=== PATIENT | female | born 1935 | race Caucasian/White ===

== ENCOUNTER 2016-12-12 01:20 | Inpatient (IN) | payer OTHER, MEDICARE ==
[~2016-12-12] VITALS: Ht 175.3 cm; Wt 59.0 kg
[~2016-12-12 01:20] MED LIST: ASPIRIN EC81 M1 PO; CLONAZEPAM0.25 M1 PO; COZAAR100 M1 PO; ELIQUIS5 M1 PO; GABAPENTIN300 M2 PO; LEXAPRO10 M1 PO; LIPITOR20 M2 PO; MERREM1 GM IV; METOPROLOL TART25 M1 PO; REMERON15 M2 PO; VITAMIN D250000 UNIT PO
--- NOTE | 2016-12-12 12:47 | Admission Core Measures ---
Admission Meds I reviewed the following Meds: Current Medications Sig/Chris Start time Last Medication Dose Stop Time Status Admin Atorvastatin Calcium 20 MG DAILY 12/13 1000 UNVr (Lipitor) Clonazepam 0.25 MG BID 12/12 2199 UNVr (KlonoPIN) 12/19 215 Escitalopram Oxalate 10 MG DAILY 12/13 1000 UNVr (Lexapro) Gabapentin 300 MG DAILY 12/13 1000 UNVr (Neurontin) Heparin Sodium 25,000 UNIT ONCE ONE 12/12 1245 UNir (Porcine) 12/12 1246 (Heparin) Sodium Chloride 500 ML Heparin Sodium 25,000 UNIT ONCE ONE 12/12 1215 AC (Porcine) 12/14 1414 Sodium Chloride 500 ML (Normal Saline 0.9%) Losartan Potassium 100 MG DAILY 12/13 1000 UNVr (Cozaar) Meropenem 0.5 GM Q8 12/12 1400 UNVr (MEROPENEM) Meropenem 0.5 GM ONCE 12/12 0000 NR (MEROPENEM) 12/12 2359 Metoprolol Tartrate 25 MG BID 12/12 2199 UNVr (Lopressor) Mirtazapine 15 MG QPM 12/12 220 UNVr (Remeron) Omeprazole 20 MG DAILY AC 12/13 0700 UNVr (Prilosec) Acute Coronary Syndrome Inclusion Criteria ACS Diagnosis No Inpatient Core Measures LDL Reminder: If No, please order W/I first 24hr of stay Congestive Heart Failure Inclusion Criteria CHF Diagnosis No Cerebrovascular accident Inclusion Criteria CVA/TIA Diagnosis No Inpatient Core Measures Bedside Swallow Eval Reminder: If BSE failed, place ST order Antithrombotic Reminder: Order Antithrombotic Medication by end of day 2 Antithrombotic Reminder: Document Reason Antithrombotic Not ordered by end of day 2 AFIB/Flutter Reminder: If Present, add to problem list AFIB/Flutter Reminder: Order Anticoag Medication for pts with AFIB/Flutter Atherosclerosis Reminder: If Present, add to problem list LDL Reminder: If No, please order W/I first 24hr of stay PT Order Reminder: If No, please order Venous thromboembolism Inpatient Core Measures VTE Risk Factors: Age > 40, Surgery No [facility] V[facility] prophylaxis d/t Lower limb ischemia, Peripheral vascular Dx No VTE Pharm Prophylaxis d/t No contraindications Inclusion Criteria - Per Current guidelines, there needs to be overlap - treatment for the first 5 days of Warfarin therapy. - Parenteral Anticoagulation (IV or SC) needs to be - given along with Warfarin therapy. VTE Diagnosis No VTE Type NONE VTE Confirmed by (Test) NONE Problem List As ranked by this Provider includes Assessment & Plan 1. PVD (peripheral vascular disease) HOME MEDS Home Med List Apixaban (Eliquis) 5 MG TABLET 1 TAB PO BID A FIB (Reported) Atorvastatin Calcium (Lipitor) 20 MG TABLET 1 TAB PO DAILY CHOLESTEROL ( Reported) Clonazepam 0.25 MG TAB.RAPDIS 1 TAB PO BID ANXIETY (Reported) Ergocalciferol (Vitamin D2) (Vitamin D2) 50,000 UNIT CAPSULE 1 CAP PO QW VITAMIN D DEFICIENCY (Reported) Escitalopram Oxalate (Lexapro) 10 MG TABLET 1 TAB PO DAILY ANXIETY \ DEPRESSION (Reported) Gabapentin 300 MG CAPSULE 1 CAP PO DAILY NEUROPATHY (Reported) Losartan (Cozaar) 100 MG TABLET 1 TAB PO DAILY HTN (Reported) Metoprolol Tartrate 25 MG TABLET 1 TAB PO BID A FIB (Reported) Mirtazapine (Remeron) 15 MG TABLET 1 TAB PO QPM SLEEP (Reported) Discontinued Medications Aspirin (Ecotrin*) 81 MG TABLET.DR 1 TAB PO DAILY CVA (Reported) Discontinued reason: Changed Dose
--- NOTE | 2016-12-12 15:14 | PN- Vascular Surgery ---
Subjective Subjective: The patient was seen this afternoon postoperatively. She complaints of feeling cold but is otherwise comfortable and denies any pain at the current time. Objective Vital Signs and I&Os Vital signs: Blood pressure 150/90, pulse 90, temperature 97.9, O2 sat saturation 100% on 3 L via nasal cannula Physical Exam: Gen.: Alert and in no obvious distress Skin: Warm and dry Cardiac: S1 and S2 regular Pulmonary: Bilateral breath sounds are equal and decreased at bases Extremities: Bilateral lower extremities are warm. Gross motor and sensory are intact. Right lower extremity with surgical dressing is clean, dry, and intact. There is a dopplerable PT pulse and the foot is warm with a hyperemic appearance Assessment/Plan Assessment/Plan Assessment: 80-year-old female status post right leg angioplasty and stenting due to peripheral vascular disease and chronic nonhealing wounds Plan: Place in observation for neurovascular checks Heparin drip at 500 units an hour nonprotocol IV antibiotics PRN pain medications, antiemetics, antipyretics Advance diet as tolerated GI and DVT prophylaxis Resume home medications Probable discharge tomorrow if progressing as expected. Core Measures/Miscellaneous Venous Thromboembolism VTE Risk Factors: Age > 40, Surgery VTE Contraindications: No Contraindications No [facility] VTE Prophylaxis D/T: Peripheral Vascular Dx, Surgical Procedure LE VTE Diagnosis: No VTE Type: NONE VTE Confirmed by (Test): NONE Beta Jerry Is Beta Jerry a Home Med? Yes If Yes, Was This Ordered Today? Yes Antibiotics Is Patient on Antibiotics? Yes If Yes: infection
--- NOTE | 2016-12-12 16:38 | RADIOLOGY REPORT ---
EXAMINATION: ADMINISTRATIVE DICTATION FOR INTRAOPERATIVE FLUOROSCOPY CLINICAL INFORMATION: Right leg arteriogram and angioplasty in OR. COMPARISON: None FLUOROSCOPY TIME: 18 minutes. TECHNIQUE/FINDINGS: Intraoperative fluoroscopy was dedicated to the operating room for the performance of a right leg arteriogram and angioplasty. 9 fluoroscopic runs were performed and are archived in PACS for review. IMPRESSION: Intraoperative fluoroscopy and fluoroscopic runs obtained for an arteriogram and angioplasty.
[2016-12-12 17:31] VITALS: BP 132/80
--- NOTE | 2016-12-12 17:55 | Operative Report ---
Operative/Inv Procedure Report Surgery Date: 12/12/16 Name of Procedure: Ultrasound guidance for vascular access, right leg extremity venogram with supervision and interpretation, aortogram, right pelvic angiogram, right lower extremity angiogram, right external iliac 6 mm angioplasty with a Lutonix drug coated balloon, right SFA and popliteal angioplasty and stenting 3, intravascular ultrasound, additional vessel intravascular ultrasound, Exoseal closure device Pre-Operative Diagnosis: Right leg peripheral arterial disease with past atherosclerotic ulceration of the lower leg. Post-Operative Diagnosis: Right leg peripheral arterial disease with past atherosclerotic ulceration of the lower leg. Estimated Blood Loss: less than 50ml Surgeon/Energy Crop Farmer: TERENCE PINEDA MD Anesthesia: local monitored anesthesi Complications: None Condition: Stable to PACU Operative Indication: This is a 80-year-old female with extensive history of peripheral arterial disease, A. fib, poor nutrition and smoking. Recently she struck her right leg which has resulted in a extensive pretibial wound. She is recently been started on IV antibiotics. She states that her pain is been worsening and has consented to lower extremity diagnostic angiography. The patient has prior placed iliac stents which will necessitate alternate access via the popliteal artery. Risks and benefits of the procedure including thrombosis, limb loss and were explained to her. She consented to the procedure. Operative/Procedure Note Note: Patient brought to the operating room and placed prone on the table. The right popliteal artery was selected for access. This was done with a combination of ultrasound guidance and fluoroscopy. The venous system was also interrogated with contrast injection. The popliteal vein was accessed and a venogram demonstrated a widely patent superficial femoral vein and popliteal vein. The artery was then accessed. The catheter was advanced into the aorta with diagnostic pelvic and right lower extremity angiography performed from the aorta down to the foot. Aortography demonstrates a patent aortoiliac segment. There are bilateral iliac stents. These are widely patent. These areas are calcified. Pelvic angiography was performed due to the severe nature of the patient's disease. This demonstrates significant iliac disease. The right external iliac artery demonstrates a moderate stenosis. The right superficial femoral artery is occluded just past its origin. The profunda femoris is patent. There is reconstitution to the popliteal artery. The below-knee popliteal artery is diseased but patent. There is 2 vessel runoff to the right leg via a dominant posterior tibial artery. The peroneal artery appears occluded. Due to the severe nature of this patient's disease decision was made to perform intervention. 4500 units of heparin were administered. A 4-6 Maltese sheath was placed in succession. The external iliac artery was treated with 6 mm Lutonix drug-coated balloon angioplasty this area has restenosed in the past. The SFA was treated with 3 stents. A 6 x 100 mm Cordis, 6 x 100 mm Mana. Sci. and 5 mm Mana, Sci. Self-expanding stents were placed in succession from the common femoral artery down to the popliteal artery. The area was then postdilated with 4-6 mm angioplasty. Completion arteriography demonstrates mild restenosis. The area was re-interrogated with intravascular ultrasound. This was done from the iliac vessels all the way down to the popliteal artery. This demonstrates a patent SFA and profunda femoris. A small dissection was noted and this area was tacked with a 6 mm angioplasty. Completion arteriography demonstrates no flow limiting dissection. The catheter sheath and wire systems were then removed. An Exoseal closure device was used to seal the puncture site. The patient had significant improvement and her neurovascular exam in addition to a foot that appears well- perfused at this time. Due to the extensive nature of the case and the patient's disease she will be monitored overnight 23 hours and placed on a heparin drip. Findings: Due to the extensive nature of the case and the patient's disease she will be monitored overnight 23 hours and placed on a heparin drip. CC: YOLANDA GONZALEZ,BRANDIE
--- NOTE | 2016-12-12 20:13 | NUR ---
BEDSIDE REPORT GIVEN AT 1930. PT A&OX3, 3LNC, SANDRA PICC- IVF NS @75ML, HEPARIN GTT 10ML, SIGN PLACED ABOVE BED NO RIGHT ARM USE. DSG TO RLE (KNEE) SURGICAL SITE CDI, DSG TO RLE (WOUND/ULCER) CHANGED BY PRIOR RN, PER PT GOES TO WOUND CLINIC FOR TREATMENTS, ALPS LLE ONLY, BED ALARM ON, RED SOCKS ON, SIGN OUTSIDE OF DOOR, CALL LIGHT WITHIN REACH. PT MEDICATED WITH PRN PAIN MEDICATIONS.
[2016-12-12 20:21] VITALS: BP 140/90
--- NOTE | 2016-12-12 20:56 | NUR ---
RECEIVED PT FROM PACU AROUND 1645. LETHARGIC/O/VERBAL. SPO2 86% ON RA. STARTED ON 3L O2 NC. RT CALLED AND UPDATED WHO CAME IN TO CHECK THE PT. NO RESP DISTRESS NOTED. REST OF THE VS STABLE. FALL PREC PLACED. ALP TO L LEG. SURGICAL DRSG TO R KNEE/LEG CDI. RLE DRSG CHANGED AND DRESSED WITH XEROFORM/TELFA/ABD/KERLEX. PT GOES TO WOUND CENTER. RLE DIFFICULT TO MEASURE BECAUSE THE WOUND IS COVERING ALMOST ALL R LOWER LEG. WOUND CONSULT WILL BE PLACED WITH WOUND RN MIAKOL JONES. SANDRA PICC DL PATENT. HEP GTT IN PROGRESS AT 10ML/HR. LLE DISCOLORED W/HEALED SURGICAL SITE. BIG BRUISE TO LFA NOTED. HEALING SCAB TO FOREHEAD. +PULSES TO FEMORAL, DORSALIS PEDIS, AND POPLITEAL. UPPER AND LOWER EXT COLD TO TOUCH. CALLED SURG SHERIN PRATT TO REACTIVATE HEP GTT AND PAIN MEDS AT 1700. PT EVAL IN PLACE. REPORT GIVEN TO RN MARLEE LAMA.
[2016-12-12 21:57] VITALS: BP 138/80
[2016-12-13 06:28] VITALS: BP 142/80
--- NOTE | 2016-12-13 07:42 | PN- Vascular Surgery ---
Subjective Subjective: some pain right leg, helped with meds. no n/v/cp/sob. Objective Vital Signs and I&Os Vital Signs Date Time Temp Pulse Resp B/P B/P Pulse O2 O2 Flow FiO2 Mean Ox Delivery Rate 12/14 627 98.3 108 20 142/80 92 Nasal 3.0L Cannula 12/13 0000 96 Nasal 3.0L Cannula 12/12 2157 98.1 90 20 138/80 92 12/12 202 92 140/90 12/12 2002 95 Nasal 3.0L Cannula 12/12 1909 Nasal 3.0L Cannula 12/12 1829 95 Nasal 3.0L Cannula 12/12 1731 98.4 88 18 132/80 95 Nasal 3.0L Cannula Intake & Output 12/13 0812/13 0000 12/12 1600 12/12 0812/12 0000 12/11 1600 Intake Total 1480 460 Output Total 1150 Balance 330 460 Intake, IV 680 340 Intake, Oral 800 120 Output, Urine 1150 Patient 130 lb Weight Physical Exam: GEN: NAD CARD: S1S2 RRR PULM: CTAB ant ABD: soft nt EXT: RLE: foot warm, gross motor/sensate intact, no palp pulse, +PT signal, no DP signal, dsg cdi, ttp popliteal fossa. LLE: calf soft nt, foot warm Assessment/Plan Assessment/Plan POD1 sp RLE angio/stent, stable. PLAN: IV abx- length? home dose? restart elaquis, dc hep gtt labs pdg titrate o2 hh diet oob dc planning Core Measures/Miscellaneous Venous Thromboembolism VTE Risk Factors: Age > 40, Surgery VTE Contraindications: No Contraindications No [facility] VTE Prophylaxis D/T: Peripheral Vascular Dx, Surgical Procedure LE VTE Diagnosis: No VTE Type: NONE VTE Confirmed by (Test): NONE Beta Jerry Is Beta Jerry a Home Med? Yes If Yes, Was This Ordered Today? Yes Antibiotics Is Patient on Antibiotics? Yes If Yes: infection
[2016-12-13 08:00] LABS: ABSOLUTE BASOPHIL COUNT 0.1 /CUMM (0.0-0.2); ABSOLUTE EOSINOPHIL COUNT 0.2 /CUMM (0.0-0.7); ABSOLUTE GRANULOCYTE CT 6.8 /CUMM (1.4-6.5); ABSOLUTE LYMPH COUNT 0.7 /CUMM (1.2-3.4); ABSOLUTE MONOCYTE COUNT 0.7 /CUMM (0.10-0.60); BASOPHIL % 0.7 % (0.0-2.0); EOSINOPHIL % 1.9 % (0-5); GRANULOCYTE % 80.8 % (42.2-75.2); HEMATOCRIT 34.1 % (37-47); MEAN CORPUSCULAR HGB 31.4 PG (27.0-31.0); MEAN CORPUSCULAR HGB CONC 32.7 G/DL (33.0-37.0); MEAN CORPUSCULAR VOLUME 95.9 FL (81.0-99.0); MEAN PLATELET VOLUME 8.6 FL (7.4-10.4); PLATELET COUNT 485 /CUMM (130-400); RBC DISTRIBUTION WIDTH 14.3 % (11.5-14.5); RED BLOOD CELL CT 3.55 /CUMM (4.20-5.40); WHITE BLOOD CELL COUNT 8.4 /CUMM (4.8-10.8)
[2016-12-13 08:33] LABS: PTT 35 SEC (25-37)
--- NOTE | 2016-12-13 10:31 | NUR ---
WOUND CARE: STAFF REQUESTING THIS TAX E[employer]OMIST EVAL PT FOR WOUND CARE RECOMMENDATIONS PT IS S/P ANGIO WITH DR PINEDA - CALL PLACED TO DR PINEDA TO CLARIFY ORDERS - PER DR PINEDA, HE "WILL TAKE CARE OF IT" (DRESSING CHANGES) - CALL PLACED TO CHARGE NURSE TO UPDATE
[2016-12-13] MEDS ORDERED: PERCOCET 5-3251 EACH PO (12:19)
--- NOTE | 2016-12-13 12:23 | Patient Discharge Instructions ---
See Addendum Discharge Instructions General Discharge Information You were seen/treated for: 1. Postoperative hypoxemia, secondary to pulmonary edema, bilateral effusions and atelectasis. 2. Status post right LE venogram for PAD, right lower extremity non-healing ulcer. 3. History of osteomyelitis, on meropenem. You had these procedures: Right leg angiogram/stent Watch for these problems: Increasing pain despite the use of pain medication. Loss of color, warmth, or sensation to right leg and foot. INability to bear weight on right leg. Fever greater than 101.5 Call Surgeon to remove: Other (dressing change/wound eval) Do not soak the wound: Yes Special Instructions: Please make an appointment to see the doctors in the referral section. Soft tissue cultures grew Pseudomonas species, resistant to Meropenem. Dr. Clare padron, follow up with her as an outpatient. Meropenem discontinued, currently not on any antibiotics. Diet Continue normal diet: Yes Recommended Diet: Regular Additional DIET Information: Advance as tolerated Activity Full Activity/No Limits: No Activity Self Limited: Yes Additional ACTIVITY Info: Weight bear as tolerated on right leg Acute Coronary Syndrome Inclusion Criteria At DC or during hospital stay patient has or had the following: ACS DIAGNOSIS No Discharge Core Measures Meds if any: Prescribed or Continued at Discharge Meds if any: NOT Prescribed or Continued at Discharge Congestive Heart Failure Inclusion Criteria At DC or during hospital stay patient has or had the following: CHF DIAGNOSIS No Discharge Core Measures Meds if any: Prescribed or Continued at Discharge Meds if any: NOT Prescribed or Continued at Discharge Cerebrovascular accident Inclusion Criteria At DC or during hospital stay patient has or had the following: CVA/TIA Diagnosis No Discharge Core Measures Meds if any: Prescribed or Continued at Discharge Meds if any: NOT Prescribed or Continued at Discharge Venous thromboembolism Inclusion Criteria VTE Diagnosis No VTE Type NONE VTE Confirmed by (Test) NONE Discharge Core Measures - Per Current guidelines, there needs to be overlap - treatment for the first 5 days of Warfarin therapy. - If discharged on Warfarin prior to 5 days of - overlap therapy, the patient will need to be - assessed for post discharge needs including - *Post discharge parental anticoagulation - *Warfarin and/or parental anticoagulation education - *Follow up date to check INR post discharge At least 5 days overlap therapy as Inpatient No Meds if any: Prescribed or Continued at Discharge Note: Overlap Therapy is Warfarin and Anticoagulant Meds if any: NOT Prescribed or Continued at Discharge
--- NOTE | 2016-12-13 12:57 | NUR ---
1230- PT O2 SAT 93% ON 3L NC. UNABLE TO TITRATE O2 DOWN AT THIS TIME. O2 SAT ON RA 86%. O2 SAT ON 2L NC 88%. O2 SAT ON 3L NC 93% IS USE ENCOURAGED AND PT COMPLIANT WITH RETURN DEMONSTRATION. SURG SHERIN ABBOTT NOTIFIED OF ABOVE.
[2016-12-13 14:24] VITALS: BP 142/88
--- NOTE | 2016-12-13 14:51 | RADIOLOGY REPORT ---
EXAMINATION: XR PORTABLE CHEST CLINICAL INFORMATION: Unable to wean oxygen. COMPARISON: None TECHNIQUE: Portable frontal view of the chest was obtained. FINDINGS: Both lungs are hyperinflated and clear of acute pneumonic process. Minimal linear atelectasis/scarring is seen in both lung bases and in both upper lobes. Heart size is normal. Mild prominence of bilateral pulmonary vascularity is noted without yohana congestion. A right central venous catheter is in mid SVC. No gross bony abnormality seen. IMPRESSION: Hyperinflated lungs with atelectasis versus scarring both lung bases and upper lobes. No acute consolidation seen. Prominent pulmonary vascularity but no congestion suspected.
--- NOTE | 2016-12-13 15:36 | Cons- Medical ---
JOSE ALFREDO APPLE MD 12/13/16 1536: General Information and HPI Consulting Request Date of Consult: 12/13/16 Requested By: TERENCE ORTIZ MD Reason for Consult: ACUTE HYPOXIA Exam Limitations: no limitations History of Present Illness: Patient is a 80-year-old female with a past medical history of HTN, Hyperlipidemia, PAD, Afib on Eliquis, venous stasis ulcer, TIA, polio, and depression , history of CVA current every day smoker, nonhea, status post popliteal femoral bypass in January 2014, who was admitted for same-day surgery of the right angiogram on 12/12/2016. The patient was supposed to be discharged today but but desaturated to lowest of 83% on room air while sitting on postop day 1. The medical team was consulted to help in the evaluation and treatment of acute hypoxia. The patient did not complain of any chest pain, shortness of breath or wheezing. She does state that she gets short of breath when she tried to get up and use the restroom which is new for her. She does not carry a formal diagnosis of COPD and not on any home oxygen. To be noted that the patient is currently on chronic meropenem therapy for the last 1 week as recommended by [facility] wound care center.. Allergies/Medications Allergies: Coded Allergies: cefepime (? 12/07/16) doxycycline (? 12/07/16) sulfamethoxazole (From BACTRIM) (? 12/07/16) trimethoprim (From BACTRIM) (? 12/07/16) Home Med List: Apixaban (Eliquis) 5 MG TABLET 1 TAB PO BID A FIB (Reported) Atorvastatin Calcium (Lipitor) 20 MG TABLET 1 TAB PO DAILY CHOLESTEROL ( Reported) Clonazepam 0.25 MG TAB.RAPDIS 1 TAB PO BID ANXIETY (Reported) TAKES 0.5 AT BEDTIME Ergocalciferol (Vitamin D2) (Vitamin D2) 50,000 UNIT CAPSULE 1 CAP PO QW VITAMIN D DEFICIENCY (Reported) Escitalopram Oxalate (Lexapro) 10 MG TABLET 1 TAB PO DAILY ANXIETY \ DEPRESSION (Reported) Gabapentin 300 MG CAPSULE 1 CAP PO DAILY NEUROPATHY (Reported) Losartan (Cozaar) 100 MG TABLET 1 TAB PO DAILY HTN (Reported) Meropenem (Merrem) 1 GRAM VIAL LEG WOUND (Reported) RUNS CONTINUOUSLY AT HOME Metoprolol Tartrate 25 MG TABLET 1 TAB PO BID A FIB (Reported) Mirtazapine (Remeron) 15 MG TABLET 1 TAB PO QPM SLEEP (Reported) Oxycodone HCl/Acetaminophen (Percocet 5-325 MG Tablet) 5 MG-325 MG TABLET 1 TAB PO Q4-6H PRN PAIN Current Medications: Current Medications Sig/Chris Start time Last Medication Dose Route Stop Time Status Admin Acetaminophen 650 MG Q6PRN PRN 12/12 1715 AC PO Apixaban 5 MG BID 12/13 1000 AC 12/13 PO 1108 Aspirin 325 MG DAILY 12/12 1239 AC 12/13 PO 1102 Atorvastatin Calcium 20 MG 1700 12/13 1700 DC PO Atorvastatin Calcium 20 MG 1700 12/13 1700 AC PO Clonazepam 0.25 MG BID 12/12 220 DC PO 12/19 2159 Docusate Sodium 100 MG DAILY NEEDED PRN 12/12 1715 AC PO Escitalopram Oxalate 10 MG DAILY 12/13 1000 DC PO Escitalopram Oxalate 10 MG DAILY 12/13 1000 AC 12/13 PO 1058 Gabapentin 300 MG DAILY 12/13 1000 DC PO Gabapentin 300 MG DAILY 12/13 1000 AC 12/13 PO 1100 Heparin Sodium 25,000 UNIT ONCE ONE 12/12 1745 DC 12/12 (Porcine) IV 12/14 1944 1740 Sodium Chloride 500 ML Heparin Sodium 25,000 UNIT ONCE ONE 12/12 1215 DC (Porcine) IV 12/14 1414 Sodium Chloride 500 ML Losartan Potassium 100 MG DAILY 12/13 1000 DC PO Losartan Potassium 100 MG DAILY 12/13 1000 AC 12/13 PO 1100 Meropenem 1 GM Q8 12/13 1400 AC 12/13 IV 1303 Meropenem 1 GM Q8 12/12 1400 DC IV Meropenem 0.5 GM ONCE 12/12 0000 DC IV 12/12 2359 Metoprolol Tartrate 25 MG BID 12/12 2200 DC PO Mirtazapine 15 MG QPM 12/12 2200 DC PO Morphine Sulfate 2 MG Q2P PRN 12/12 1715 DC 12/12 IV 1715 Omeprazole 20 MG DAILY AC 12/14 0700 AC PO Omeprazole 20 MG DAILY AC 12/13 0700 DC PO Ondansetron HCl 4 MG Q8P PRN 12/12 1715 AC IV Oxycodone/ 1 TAB ONCE ONE 12/13 1115 DC 12/13 Acetaminophen PO 12/13 1116 1108 Oxycodone/ 1 TAB Q4P PRN 12/12 1715 AC 12/13 Acetaminophen PO 0824 Oxycodone/ 2 TAB Q4P PRN 12/12 1715 AC 12/13 Acetaminophen PO 0328 Patient Medication 1 ED .STK-MED ONE 12/13 1403 DC Teaching ED 12/13 1404 Sodium Chloride 1,000 ML .[id number] 12/12 1715 DC 12/13 IV 0526 Review of Systems Review of Systems Constitutional: Reports: see HPI. 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 Surgical History Surgical History: POPLITEAL FEMORAL BYPASS Psychosocial History Services at Home: Home Health Aide, Nursing Smoking Status: Current Some Day Smoker Exam & Diagnostic Data Last 24 Hrs of Vital Signs/I&O Vital Signs Date Time Temp Pulse Resp B/P B/P Pulse O2 O2 Flow FiO2 Mean Ox Delivery Rate 12/13 1424 97.9 87 18 142/88 94 12/13 1100 70 130/80 12/13 0800 93 Nasal 3.0L Cannula 12/13 0628 98.3 108 20 142/80 92 Nasal 3.0L Cannula 12/13 0000 96 Nasal 3.0L Cannula 12/12 2157 98.1 90 20 138/80 92 12/12 2021 92 140/90 12/12 2002 95 Nasal 3.0L Cannula 12/12 1909 Nasal 3.0L Cannula 12/12 1829 95 Nasal 3.0L Cannula 12/12 1731 98.4 88 18 132/80 95 Nasal 3.0L Cannula Intake & Output 12/13 1600 12/13 0800 12/13 0000 Intake Total 1200 1480 460 Output Total 700 1150 Balance 500 330 460 Intake, IV 600 680 340 Intake, Oral 600 800 120 Output, Urine 700 1150 Patient 130 lb Weight Physical Exam General Appearance: well developed/nourished, no apparent distress, alert Head: atraumatic, normal appearance Cardiovascular: regular rate/rhythm, norml femoral pulses equa Breasts Breast appear nl Peripheral Pulses: 4+ femoral (R), 4+ femoral (L) Extremities: normal inspection, normal capillary refill, normal range of motion Last 24 Hrs of Labs/Zachary: Laboratory Tests 12/13/16 0502: Anion Gap 3 L, Estimated GFR > 60, BUN/Creatinine Ratio 25.0, APTT 35, CBC w Diff NO MAN DIFF REQ, RBC 3.55 L, MCV 95.9, MCH 31.4 H, RDW 14.3, MPV 8.6, Gran % 80.8 H, Lymphocytes % 8.8 L, Monocytes % 7.8, Eosinophils % 1.9, Basophils % 0.7, Absolute Granulocytes 6.8 H, Absolute Lymphocytes 0.7 L, Absolute Monocytes 0.7 H, Absolute Eosinophils 0.2, Absolute Basophils 0.1, PUBS MCHC 32.7 L Assessment/Plan Assessment/Plan This is a 80-year-old female with a past past medical history of hypertension hyperlipidemia, atrial fibrillation on Eliquis, nonhealing ulcer on the right leg status post right angiogram on 12/12/2016 who developed acute hypoxia postoperatively. She was found to be desaturating to 82% on room air and was immediately put on 3 L of oxygen. Patient's vitals at the time of termination showed Blood pressure 142/88, respiration rate of 18, heart rate of 98 EKG shows normal sinus rhythm The medical team is being consulted for the following problem Assessment 1. Acute hypoxia postoperatively: The patient has history of atrial fibrillation and is anticoagulated well, she was also bridged during the surgery with IV heparin and was started on by mouth Eliquis again today but, given normal chest x-ray, I am worried about the acute hypoxia in the postoperative setting and the suspicion of pulmonary embolism remains high. To be noted that the patient was off Eliquis for 2 days prior to the right angiogram. . The other differential for the acute hypoxia could be atelectasis. 2. 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 Status post right angiogram on 12/12/2016 3. History of hypertension 4. History of hyperlipidemia 5. History of peripheral vascular disease Plan We recommend CTA of the chest with IV contrast to look for pulmonary embolism Considering that the patient had a moderate amount of contrast during her angiogram we would give 1 L of normal saline at 75 mL per hour post CAT scan Incentive spirometry Titrate oxygen Continue with HOME MEDICATIONS AND IV ANTIBIOTICS We will follow the patient with you DVT prophylaxis with Eliquis Addedndum: As recommended by Dr Ortiz he was not comfortable getting anoother IV contrast load .He recommended to check D dimers We still think that we can proceed wioth the CT chest without contrast to look for further evlauation and consolidation and hyperinflation of the lung. Problem List: 1. PVD (peripheral vascular disease) Consult Acknowledgment - Thank you for your consult request. DANN GONZALEZ,MATT 12/13/162: Assessment/Plan Consult Acknowledgment - Thank you for your consult request. Attending MD Review Statement Attending Statement Attending MD Statement: examined this patient, discuss w/resident/PA/ROAD CUTTER, agreed w/resident/PA/ROAD CUTTER, reviewed EMR data (avail), reviewed images Attending Assessment/Plan: 80-year-old female active tobacco user, history of hypertension hyperlipidemia atrial fibrillation on Eliquis and peripheral arterial disease. She is here on the vascular surgery service and has a chronic ulcer on her right pretibial area has been followed at the [facility] and is on IV meropenem for the past week. She had a right lower extremity angiogram done December 12 for possible intervention for atherosclerotic disease. She was transitioned from Eliquis to IV heparin for the procedure and today transitioned back to by mouth Eliquis. We were called for hypoxia and desaturation of unclear etiology. Her room air sat is 86% and she requires 3 L to be over 90%. She has nothing suggestive in her history, exam or chest x-ray of pneumonia or congestive heart failure. At this point my biggest clinical suspicion is for underlying COPD -undiagnosed given her long-term tobacco use. However she does not carry a diagnosis of COPD, has never needed oxygen before, and I think a PE definitely has to be taken into consideration as well. At this point will continue the by mouth Eliquis. We've spoken to the surgical PA and her creatinine is normal, she was maintained on fluids and didn't get a lot of contrast for her angiogram. We'll get a CTA which will help us to rule out a PE and define pulmonary parenchymal disease. We will maintain her on the oxygen and follow-up based on the CT results. Keep her on low-dose fluids and follow BUN and creatinine in a.m. post contrast.
--- NOTE | 2016-12-13 16:17 | NUR ---
1430- PT CONTINUES ON O2 3L AT 93% AT REST. PHYSICAL THERAPY HAD PT SIT AT BEDSIDE AND PT DESATURATED TO 83%. SURG SHERIN ABBOTT NOTIFIED. CXR ORDERED. MEDICAL CONSULT TO BE PLACED. DISCHARGE TO BE CANCELLED.
--- NOTE | 2016-12-13 17:25 | NUR ---
CTA OF CHEST ORDER PLACED AT THIS TIME BY JOSE ALFREDO. THEN CALLED BY BRAYDEN DUFF STATING THAT DR PINEDA DOES NOT WANT TO DO CTA OF CHEST INSTEAD DRAW D-DIMER. ORDER IN PLACE FOR D-DIMER. CALL FROM JOSE ALFREDO STATING THAT HE WILL ALSO ORDER A CT OF CHEST FOR TODAY. CALL FROM [facility] STATING THAT THEY JUST GOT A CALL FROM DR PINEDA STATING TO NOT SCAN PT AT ALL, JUST DRAW D-DIMER AND CONSIDER CT CHEST TOMORROW IF D- DIMER IS ELEVATED. CALL TO JOSE ALFREDO AT THIS TIME TO MAKE AWARE AND STATED HE WILL CANCEL ORDER FOR CT CHEST. D-DIMER WILL BE DRAWN AT THIS TIME.
--- NOTE | 2016-12-13 18:53 | PN- Vascular Surgery ---
Surgical Brief Attending Note Brief Attending Note: VASCULAR ATTENDING NOTE: Pt. now s/p RLE angio stent 12/12. Minimal R. leg pain. ? decrease in 02 sat. Now stable on O2 therapy. Denies SOB. PE: AF/VSS Chest CTAB Ext: Warm/well perfused--wound dressing changed A/P 1.) Cont. A/C--Hold CTA -as pt. 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 is stable on A/C and there's no role for IVCF 2.) If pulm. status does not stabilize will consult Dr. Babcock in AM. 3.) Cont. ABX and local wound care 4.) Cont. home meds
--- NOTE | 2016-12-13 19:24 | Event Note ---
Event Note Event Note: Spoke to Dr Ortiz and discussed the option of doing CT chest without contrast. He was reluctant with further radiation exposure to the patient and asked us to hold off on any further imaging.(with or withour contrast).
[2016-12-13 20:55] VITALS: BP 148/70
--- NOTE | 2016-12-13 21:06 | NUR ---
CALL PLACED TO SURGICAL PA AT THIS TIME REGARDING RESULT OF D-DIMER TEST, PLAN IS FOR NOW, PER REG SURGICAL PA, MONITOR VS QS AND INFORM OF ANY CHANGES. LUNGS CONT TO BE DIMINISHED WITH SLIGHT EXP WHZ, 92% ON 3L, DENIES SOB.
[2016-12-14 06:34] VITALS: BP 155/80
--- NOTE | 2016-12-14 08:50 | PN- General Surgery ---
Subjective Subjective: Pt. denies dyspnea, however looks mildly dyspneic when conversing with me. She states she wants to go home today. RN reports that yesterday sats were 83% while she was getting OOB Objective Vital Signs and I&Os Vital Signs Date Time Temp Pulse Resp B/P B/P Pulse O2 O2 Flow FiO2 Mean Ox Delivery Rate 12/14 0634 98.5 94 22 155/80 92 Nasal Cannula 12/14 0000 92 Nasal 3.0L Cannula 12/13 2055 98.1 108 20 148/70 92 Nasal 3.0L Cannula 12/13 1800 Nasal 3.0L Cannula 12/13 1424 97.9 87 18 142/88 94 12/13 1100 70 130/80 Intake & Output 12/14 1600 12/14 0800 12/14 0000 12/13 1600 12/13 0800 12/13 0000 Intake Total 240 1200 1480 460 Output Total 900 285 851 5035 Balance -660 -276 500 330 460 Intake, IV 600 680 340 Intake, Oral 240 600 800 120 Number 0 Bowel Movements Output, Stool 1 Output, Urine 900 811 289 8730 Patient 130 lb Weight Alert, appropriate, no distress when resting,mild dypnea with conversation. Lungs with bilat. basilar crackles. Sats this morning : 93 % resting on oxygen 2 LNC. 86% resting on room air. Abdomen benign R LE warm to touch.Audible signals with Doppler at DP/PT, faint at DP. Assessment/Plan Assessment/Plan s/p angioplasty/ stent for PVD POD#2 LLE perfused with audible signals with Doppler. Anticoagulated with Eliquis at present. Hypoxia with baseline long hx of smoking. 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 Workup was done yesterday. D Dimer was elevated, CTA to r/o PE was not done due to recent dye load for surgery.CXR yesterday was with hyperinflation, atelectasis, prominent vascularity, but no congestion. I suspect her baseline sats are low. She makes good amounts of urine and her fluid balance is negative . She doesn't appear in fluid overload.Crackles are likely due to atelectasis. Would hesitate with trial of Lasix due to potential dehydration with recent dye and potential effect on kidney. Will get BNP, repeat portable CXR this morning.Dr Piña to evaluate pt. for recommendation. Core Measures/Miscellaneous Venous Thromboembolism VTE Risk Factors: Age > 40, Surgery VTE Contraindications: No Contraindications No [facility] VTE Prophylaxis D/T: Peripheral Vascular Dx, Surgical Procedure LE VTE Diagnosis: No VTE Type: NONE VTE Confirmed by (Test): NONE Beta Jerry Is Beta Jerry a Home Med? Yes If Yes, Was This Ordered Today? Yes Antibiotics Is Patient on Antibiotics? Yes If Yes: infection
--- NOTE | 2016-12-14 09:46 | NUR ---
LATE ENTRY FROM 12/13/16 14:00- CALL RECEIVED FROM LPN PRIVATE DUTY. PER DR. PINEDA, HE OR THE SURGICAL PA WILL CHANGE PT'S DRESSING.
--- NOTE | 2016-12-14 09:53 | Cons- Pulmonary ---
General Information and HPI Consulting Request Date of Consult: 12/14/16 Requested By: Dr. Ortiz Reason for Consult: Hypoxia Source of Information: patient, old records Exam Limitations: no limitations History of Present Illness: The patient is a 80-year-old female with a past medical history significant for hypertension, hyperlipidemia, severe peripheral artery disease, s/p femoral bypass in January of 2014, atrial fibrillation on Eliquis, venous stasis ulcer, TIA , CVA, polio, and long smoking history, noting the patient is an every day smoker. The patient was admitted on 12/12/2016 following an elective right lower extremity venogram for right leg peripheral artery disease with past atherosclerotic ulceration of the lower leg. The procedure was somewhat prolonged, noting the patient was under sedation for several hours. The patient was originally planned to go home the same day of the procedure however she was noted to desaturate to 83% while on room air. The patient's saturations are typically in the low 90s at baseline. She did not have any chest pain, or wheezing at that time. The patient was continued on a heparin drip intraoperatively and was placed on Eliquis postoperatively, which she remains on. Chest x-ray done yesterday showed hyperinflated lungs with atelectasis versus scarring in both lung bases and the upper lobes. There is no acute consolidation. Prominent pulmonary vascularity was seen. Allergies/Medications Allergies: Coded Allergies: cefepime (? 12/07/16) doxycycline (? 12/07/16) sulfamethoxazole (From BACTRIM) (? 12/07/16) trimethoprim (From BACTRIM) (? 12/07/16) Home Med List: Apixaban (Eliquis) 5 MG TABLET 1 TAB PO BID A FIB (Reported) Atorvastatin Calcium (Lipitor) 20 MG TABLET 1 TAB PO DAILY CHOLESTEROL ( Reported) Clonazepam 0.25 MG TAB.RAPDIS 1 TAB PO BID ANXIETY (Reported) TAKES 0.5 AT BEDTIME Ergocalciferol (Vitamin D2) (Vitamin D2) 50,000 UNIT CAPSULE 1 CAP PO QW VITAMIN D DEFICIENCY (Reported) Escitalopram Oxalate (Lexapro) 10 MG TABLET 1 TAB PO DAILY ANXIETY \ DEPRESSION (Reported) Gabapentin 300 MG CAPSULE 1 CAP PO DAILY NEUROPATHY (Reported) Losartan (Cozaar) 100 MG TABLET 1 TAB PO DAILY HTN (Reported) Meropenem (Merrem) 1 GRAM VIAL LEG WOUND (Reported) RUNS CONTINUOUSLY AT HOME Metoprolol Tartrate 25 MG TABLET 1 TAB PO BID A FIB (Reported) Mirtazapine (Remeron) 15 MG TABLET 1 TAB PO QPM SLEEP (Reported) Oxycodone HCl/Acetaminophen (Percocet 5-325 MG Tablet) 5 MG-325 MG TABLET 1 TAB PO Q4-6H PRN PAIN Current Medications: Current Medications Sig/Chris Start time Last Medication Dose Route Stop Time Status Admin Acetaminophen 650 MG Q6PRN PRN 12/12 171 AC PO Apixaban 5 MG BID 12/13 1000 AC 12/13 PO 2102 Aspirin 325 MG DAILY 12/12 1239 AC 12/13 PO 1102 Atorvastatin Calcium 20 MG 1700 12/13 1700 DC PO Atorvastatin Calcium 20 MG 17012/13 1700 AC 12/13 PO 1909 Docusate Sodium 100 MG DAILY NEEDED PRN 12/12 171 AC PO Escitalopram Oxalate 10 MG DAILY 12/13 1000 AC 12/13 PO 1058 Gabapentin 300 MG DAILY 12/13 1000 AC 12/13 PO 1100 Heparin Sodium 25,000 UNIT ONCE ONE 12/12 1745 DC 12/12 (Porcine) IV 12/14 1944 1740 Sodium Chloride 500 ML Losartan Potassium 100 MG DAILY 12/13 1000 AC 12/13 PO 1100 Meropenem 1 GM Q8 12/13 1400 AC 12/14 IV 0550 Metoprolol Tartrate 25 MG BID 12/13 2200 AC 12/13 PO 2229 Omeprazole 20 MG DAILY AC 12/14 0700 AC 12/14 PO 0550 Ondansetron HCl 4 MG Q8P PRN 12/12 1715 AC IV Oxycodone/ 1 TAB ONCE ONE 12/13 1115 DC 12/13 Acetaminophen PO 12/13 1116 1108 Oxycodone/ 1 TAB Q4P PRN 12/12 1715 AC 12/14 Acetaminophen PO 0600 Oxycodone/ 2 TAB Q4P PRN 12/12 171 AC 12/13 Acetaminophen PO 0328 Patient Medication 1 ED .STK-MED ONE 12/13 1403 DC Teaching ED 12/13 1404 Sodium Chloride 1,000 ML .[id number] 12/12 171 DC 12/13 IV 0526 Review of Systems Review of Systems Constitutional: Reports: malaise, weakness. Denies: chills, diaphoresis, fever. EENTM: Denies: no symptoms. Cardiovascular: Denies: chest pain, edema, orthopena, palpitations, peripheral edema, syncope. Respiratory: Reports: short of breath. Denies: cough, hemoptysis, orthopnea, sputum production, stridor, wheezing. GI: Denies: abdominal pain, constipation, diarrhea. Genitourinary: Denies: no symptoms. Musculoskeletal: Reports: muscle pain. Denies: gout. Skin: Reports: change in skin color. 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 Surgical History Surgical History: POPLITEAL FEMORAL BYPASS Psychosocial History Services at Home: Home Health Aide, Nursing Smoking Status: Current Some Day Smoker Exam & Diagnostic Data Last 24 Hrs of Vital Signs/I&O Vital Signs Date Time Temp Pulse Resp B/P B/P Pulse O2 O2 Flow FiO2 Mean Ox Delivery Rate 12/14 0800 92 Nasal 2.5L Cannula 12/14 0634 98.5 94 22 155/80 92 Nasal Cannula 12/14 0000 92 Nasal 3.0L Cannula 12/13 2055 98.1 108 20 148/70 92 Nasal 3.0L Cannula 12/13 1800 Nasal 3.0L Cannula 12/13 1424 97.9 87 18 142/88 94 12/13 1100 70 130/80 Intake & Output 12/14 1600 12/14 0800 12/14 0000 Intake Total 240 Output Total 100 900 276 Balance -100 -660 -276 Intake, Oral 240 Number 0 Bowel Movements Output, Stool 1 Output, Urine 100 900 275 Physical Exam General Appearance: awake, comfortable, thin, chronically ill Head: atraumatic Eyes: Bilateral: PERRL. Neck: supple Respiratory: severely diminished breath sounds with basilar crackles Cardiovascular: regular rate/rhythm (heart sounds distant) Gastrointestinal: normal bowel sounds, soft, non-tender Extremities: no edema, right lower extremity bandages in place Skin: warm/dry Last 48 Hrs of Labs/Zachary: Laboratory Tests 12/13/16 1740: D-Dimer 431 H 12/13/16 0502: Anion Gap 3 L, Estimated GFR > 60, BUN/Creatinine Ratio 25.0, APTT 35, CBC w Diff NO MAN DIFF REQ, RBC 3.55 L, MCV 95.9, MCH 31.4 H, RDW 14.3, MPV 8.6, Gran % 80.8 H, Lymphocytes % 8.8 L, Monocytes % 7.8, Eosinophils % 1.9, Basophils % 0.7, Absolute Granulocytes 6.8 H, Absolute Lymphocytes 0.7 L, Absolute Monocytes 0.7 H, Absolute Eosinophils 0.2, Absolute Basophils 0.1, PUBS MCHC 32.7 L Assessment/Plan Impression/Plan: 1. Postoperative hypoxemia, most likely related to atelectasis. Pulmonary embolism remains low (but not excluded) on the differential diagnosis, noting the patient was on IV heparin and is currently on Eliquis. CT angiogram would not change the current management, and the patient did receive a significant amount of IV contrast during her procedure. D-Dimer would not be helpful in this case, as it is likely positive. 2. Status post right lower extremity venogram for peripheral artery disease, right lower extremity non-healing ulcer. 3. History of osteoarthritis, on meropenem. 4. Long-term smoking, hyperinflation on chest x-ray suggestive of advanced COPD. Recommendations: * Check a repeat PA and lateral chest x-ray (ordered). * Check a BNP. * Follow-up morning lab results. * Incentive spirometry to continue - the patient was not doing this appropriately. * Request a TRC evaluation for [id number] nebulizer treatments - albuterol and atrovent. * Patient request a bedside spirometry, to be done by respiratory. * Out of bed to chair. * PT consult for ambulation - patient typically walks with a Rollator. * Continue with oxygen weaning, keep saturations greater than 92% at rest, and 88% on exertion. * Continue with Eliquis for DVT prophylaxis. * Continue all supportive care. * Discussed with surgical team. Consult Acknowledgment - Thank you for your consult request.
--- NOTE | 2016-12-14 12:49 | RADIOLOGY REPORT ---
EXAMINATION: XR CHEST CLINICAL INFORMATION: 80-year-old female with hypoxia. COMPARISON: Chest radiograph 12/13/2016 TECHNIQUE: 2 views of the chest were obtained. FINDINGS: Cardiac silhouette is at the upper limits of normal in size, unchanged. The right lung appears clear. Left basilar airspace disease is noted which is grossly unchanged. There is a small left pleural effusion. No pneumothorax. Right-sided PICC is present with tip terminating at the superior cavoatrial junction. No acute osseous abnormality. IMPRESSION: No significant interval change in left basilar airspace disease which may represent atelectasis and/or pneumonia. Clinical correlation recommended. Similar small left pleural effusion.
[2016-12-14 13:45] VITALS: BP 138/80
--- NOTE | 2016-12-14 14:37 | NUR ---
1415- ORDER REC'D TO MAKE PT A FULL ADMIT. ADMISSION DOCUMENTATION COMPLETED.
[2016-12-14 23:31] VITALS: BP 140/80
[2016-12-15 06:30] VITALS: BP 136/70
--- NOTE | 2016-12-15 07:34 | PN- Vascular Surgery ---
See Addendum Subjective Subjective: Patient is without complaints at the present time. Pain is controlled well with po pain medication. Was noting some difficulty breathing yesterday but feels it has improved with use of incentive spirometry as well as respiratory therapy. Is eager to ambulate today. Presently denies chest pain and shortness of breath. Denies nausea and vomitting. Objective Vital Signs and I&Os Vital Signs Date Time Temp Pulse Resp B/P B/P Pulse O2 O2 Flow FiO2 Mean Ox Delivery Rate 12/15 0630 98.2 96 18 136/70 92 Nasal Cannula 12/14 2331 97.4 101 20 140/80 91 Nasal 1.0L Cannula 12/14 2302 101 140/80 12/14 1640 96 Nasal 3.0L Cannula 12/14 1432 92 Nasal 3.0L Cannula 12/14 1345 98.4 60 20 138/80 90 Nasal 3.0L Cannula 12/14 1210 94 Nasal 3.0L Cannula 12/14 1050 95 132/84 12/14 1050 95 132/84 12/14 0800 92 Nasal 2.5L Cannula Intake & Output 12/15 0800 12/15 0000 12/14 1600 12/14 0800 12/14 0000 12/13 1600 Intake Total 799 109 2248 Output Total 971 743 2465 900 276 700 Balance -350 -400 -430 -660 -276 500 Intake, IV 600 Intake, Oral 720 240 600 Number 0 2 0 Bowel Movements Output, Stool 1 Output, Urine 934 629 3926 900 275 700 Patient 130 lb Weight Physical Exam: General: ALert and oriented x3, no acute distress Cardiac: Irregularly irregular Pulm: CTA bilaterally, resting respiratory effort slightly tachypnic (22) and shallow, able to effectively utilize IS Abdomen; Non-tender, non-distended Extremties: MOves all extremities, distal sensation itact. Skin to operative extremity warm distally. Dressing dry and intact. Contralateral calf non- tender Assessment/Plan Assessment/Plan This is a 80 year old female, POD 3, s/p r leg angio/stent. Hospital course complicated by atelectasis and decreased o2 saturation -Continue atc respiratory therapy -IS encouraged -OOB encouraged -Continue current anticoagulation -Pt in likely afib now, has history, consider ekg, is on home anticoagulation therapy presently -Will d/w Dr. Ortiz -Plan for dc to home when able to wean O2 -Pt was scheduled to see Dr. Ortiz today in wound center, will likely need dsg change, will d/w Dr. Ortiz prior to initiating Core Measures/Miscellaneous Venous Thromboembolism VTE Risk Factors: Age > 40, Surgery VTE Contraindications: No Contraindications No [facility] VTE Prophylaxis D/T: Peripheral Vascular Dx, Surgical Procedure LE VTE Diagnosis: No VTE Type: NONE VTE Confirmed by (Test): NONE Beta Jerry Is Beta Jerry a Home Med? Yes If Yes, Was This Ordered Today? Yes Antibiotics Is Patient on Antibiotics? Yes If Yes: infection
[2016-12-15 08:09] LABS: ABSOLUTE BASOPHIL COUNT 0 /CUMM (0.0-0.2); ABSOLUTE EOSINOPHIL COUNT 0.1 /CUMM (0.0-0.7); ABSOLUTE LYMPH COUNT 0.7 /CUMM (1.2-3.4); ABSOLUTE MONOCYTE COUNT 0.9 /CUMM (0.10-0.60); BASOPHIL % 0.5 % (0.0-2.0); HEMATOCRIT 37.8 % (37-47); MEAN CORPUSCULAR HGB 31.6 PG (27.0-31.0); MEAN CORPUSCULAR HGB CONC 33.1 G/DL (33.0-37.0); MEAN CORPUSCULAR VOLUME 95.4 FL (81.0-99.0); MEAN PLATELET VOLUME 8.3 FL (7.4-10.4); RBC DISTRIBUTION WIDTH 14.7 % (11.5-14.5); RED BLOOD CELL CT 3.96 /CUMM (4.20-5.40); WHITE BLOOD CELL COUNT 10.7 /CUMM (4.8-10.8)
[2016-12-15 08:52] LABS: PLATELET COUNT 532 /CUMM (130-400)
--- NOTE | 2016-12-15 09:07 | PN- Pulmonary ---
Subjective HPI/Critical Care Issues: The patient continues to require supplemental oxygen, however her oxygen requirement overall has improved. She continues to have severe pain which limits her mobility. She did not sleep well last night due to uncontrolled pain. This morning, she was 85% on room air. Objective Current Medications: Current Medications Sig/Chris Start time Last Medication Dose Route Stop Time Status Admin Acetaminophen 650 MG .STK-MED ONE 12/15 2255 DC PO 12/14 225 Acetaminophen 650 MG Q6PRN PRN 12/12 1715 AC 12/14 PO 2256 Albuterol Sulfate 3 ML EVERY 4 HRS/AWAKE 12/14 1200 AC 12/15 INH 0826 Alteplase, 2 MG ONE ONE 12/14 1315 DC 12/14 Recombinant IV 12/14 1316 1448 Apixaban 5 MG BID 12/13 1000 AC 12/14 PO 2255 Aspirin 325 MG DAILY 12/12 1239 AC 12/14 PO 1050 Atorvastatin Calcium 20 MG 1700 12/13 1700 AC 12/14 PO 1731 Docusate Sodium 100 MG DAILY NEEDED PRN 12/12 1715 AC PO Escitalopram Oxalate 10 MG DAILY 12/13 1000 AC 12/14 PO 1050 Gabapentin 300 MG DAILY 12/13 1000 AC 12/14 PO 1051 Ipratropium Halls 2.5 ML EVERY 4 HRS/AWAKE 12/14 1200 AC 12/15 INH 0826 Losartan Potassium 100 MG DAILY 12/13 1000 AC 12/14 PO 1050 Meropenem 1 GM Q8 12/13 1400 AC 12/15 IV 0611 Metoprolol Tartrate 25 MG BID 12/13 2200 AC 12/14 PO 2302 Omeprazole 20 MG DAILY AC 12/14 0700 AC 12/15 PO 0611 Ondansetron HCl 4 MG Q8P PRN 12/12 1715 AC IV Oxycodone/ 1 TAB Q4P PRN 12/12 1715 AC 12/14 Acetaminophen PO 1957 Oxycodone/ 2 TAB Q4P PRN 12/12 171 AC 12/15 Acetaminophen PO 0621 Patient Medication 1 ED .STK-MED ONE 12/14 1402 DC Teaching ED 12/14 1403 Vital Signs & I&O Last 24 Hrs of Vitals and I&O: Vital Signs Date Time Temp Pulse Resp B/P B/P Pulse O2 O2 Flow FiO2 Mean Ox Delivery Rate 12/15 0830 93 Nasal 2.0L Cannula 12/15 0630 98.2 96 18 136/70 92 Nasal Cannula 12/14 2331 97.4 101 20 140/80 91 Nasal 1.0L Cannula 12/14 2302 101 140/80 12/14 1640 96 Nasal 3.0L Cannula 12/14 1432 92 Nasal 3.0L Cannula 12/14 1345 98.4 60 20 138/80 90 Nasal 3.0L Cannula 12/14 1210 94 Nasal 3.0L Cannula 12/14 1050 95 132/84 12/14 1050 95 132/84 Intake & Output 12/15 1600 12/15 0800 12/15 0000 Intake Total Output Total 350 400 Balance -350 -400 Number 0 Bowel Movements Output, Urine 350 400 Physical Exam General Appearance: awake, comfortable, thin, chronically ill Head: atraumatic Neck: supple Respiratory: severely diminished breath sounds with basilar crackles Cardiovascular: regular rate/rhythm (heart sounds distant) Gastrointestinal: normal bowel sounds, soft, non-tender Extremities: no edema, right lower extremity bandages in place Skin: warm/dry Results Last 24 Hrs of Lab Results: Laboratory Tests 12/15/16 0700: Anion Gap 6, Estimated GFR > 60, BUN/Creatinine Ratio 23.3, Zgd-H-Klrznmszgvy Pept 5640 H, CBC w Diff NO MAN DIFF REQ, RBC 3.96 L, MCV 95.4, MCH 31.6 H, RDW 14.7 H, MPV 8.3, Gran % 84.0 H, Lymphocytes % 6.5 L, Monocytes % 8.0, Eosinophils % 1.0, Basophils % 0.5, Absolute Granulocytes 9.0 H, Absolute Lymphocytes 0.7 L, Absolute Monocytes 0.9 H, Absolute Eosinophils 0.1, Absolute Basophils 0, PUBS MCHC 33.1 Impression/Plan Impression/Plan Impression/Plan: 1. Postoperative hypoxemia, most likely related to atelectasis. Pulmonary embolism remains low (but not excluded) on the differential diagnosis, noting the patient was on IV heparin and is currently on Eliquis. Oxygen saturation is slowly improving. 2. Status post right LE venogram for PAD, right lower extremity non-healing ulcer. 3. History of osteomyelitis, on meropenem. 4. Long-term smoking, hyperinflation on chest x-ray suggestive of advanced COPD. Recommendations: * Check a noncontrast CT scan of the chest. * Incentive spirometry to continue. * TRC for [id number]-[id number] nebulizer treatments - albuterol and atrovent. * Patient request a bedside spirometry, to be done by respiratory. * Out of bed to chair. * PT for ambulation - patient typically walks with a Rollator. * Continue with oxygen weaning, keep saturations greater than 92% at rest, and 88% on exertion. * Continue with Eliquis for DVT prophylaxis. * Continue all supportive care. * Short-term rehabilitation suggested however the patient has 24-hour care at home.
--- NOTE | 2016-12-15 13:05 | CT SCAN REPORT ---
EXAMINATION: CT CHEST WITHOUT CONTRAST CLINICAL INFORMATION: 80-year-old female who has recently undergone angioplasty has postoperative hypoxia. Extensive smoking history. COMPARISON: CXR from 12/13/2016 and 12/14/2016. TECHNIQUE: Multidetector volumetric CT imaging of the chest was done. Axial MIP volume rendering provided. Sagittal and coronal reformatted images were obtained. DLP: 239 mGy-cm FINDINGS: LUNGS AND PLEURA: Severe centrilobular emphysema, and bronchial sanchez appear mildly thickened in both lungs. There is interlobular septal thickening in both lungs, likely representing mild interstitial edema, and intralobular septal thickening is present within upper lobes, as well. Small pleural effusions (right larger than left) and compressive atelectasis in lower lobes. The volume loss of the left lower lobe and is manifest by posterior shift of the major fissure. There is no overt evidence of superimposed airspace consolidation. No pulmonary mass or suspicious nodule. No pneumothorax. MEDIASTINUM: Cardiomegaly with enlarged right and left atrial and left ventricular chambers. Small pericardial effusion. There is kaqdqjpy-eo-[id number] atherosclerotic calcification of coronary arteries. The tip of a right subclavian central catheter terminates in the distal superior vena cava. Atherosclerotic calcification of the aorta, and its branches, without aortic aneurysm. There is mild gaseous distention of the proximal esophagus without esophageal wall thickening. There are likely several small nodules of the thyroid gland, and small calcifications are present within the interpolar region of each thyroid lobe. LYMPHATICS: No pathologic sized axillary, hilar or mediastinal lymph nodes. UPPER ABDOMEN: There is a 6.3 x 7 cm simple cyst at the upper pole of the left kidney. OSSEOUS STRUCTURES: Chondrocalcinosis of the degenerated glenohumeral joints, sternoclavicular joints and spine. Within the thoracic spine, degenerative disc disease is most severe at at T2-T3 and T8-T9. There is severe degenerative disc disease of C6-C7 of the examined lower cervical spine. Facet osteoarthritis of T1-T2 is associated with 0.5 cm of anterolisthesis of T1 on T2. IMPRESSION: 1. Coronary artery atherosclerosis, cardiomegaly, mild interstitial pulmonary edema, pleural effusions and bibasilar atelectasis. No overt pneumonia. 2. Severe pulmonary emphysema.
[2016-12-15 14:10] VITALS: BP 130/64
--- NOTE | 2016-12-15 14:53 | NUR ---
SPOKE WITH SHERIN Merino REGARDING PT'S O2 STATUS. PT 83-84% ON 1LNC AT REST. PT GIVEN RESPIRATORY TREATMENT AND IST, MOVED TO CHAIR. NO CHANGE. WHEN PLACED ON 1.5LNC AT 1230, PT INCREASED TO 92%. PER DR. COONEY, THIS IS THE GOAL O2 SAT. PT WENT FOR CT SCAN, AWAITING READ.
[2016-12-15 22:25] VITALS: BP 136/90
[2016-12-16 07:39] VITALS: BP 150/90
--- NOTE | 2016-12-16 10:17 | PN- Vascular Surgery ---
Subjective Subjective: NO MAJOR EVENTS OVERNIGHT GOOD PAIN CONTROL WITH RIGHT LEG DRSG CHANGED YESTERDAY NO COMPLAINTS AT THIS TIME D/C HELD DUE TO NEW O2 NEED Objective Vital Signs and I&Os Vital Signs Date Time Temp Pulse Resp B/P B/P Pulse O2 O2 Flow FiO2 Mean Ox Delivery Rate 12/16 0840 92 Nasal 1.5L Cannula 12/16 0800 93 Nasal 1.5L Cannula 12/16 0739 98.4 106 20 150/90 90 Nasal 1.5L Cannula 12/16 0000 Nasal 1.5L Cannula 12/15 2225 98.0 99 20 136/90 98 Nasal 1.5L Cannula 12/15 1752 95 Nasal 2.0L Cannula 12/15 1600 Nasal 2.0L Cannula 12/15 1410 97.8 62 20 130/64 90 Room Air Intake & Output 12/16 0800 12/16 0000 12/15 1600 12/15 0800 12/15 0000 Intake Total 1530 510 240 150 Output Total 850 550 600 Balance 680 510 -310 -450 Intake, IV 30 30 40 50 Intake, Oral 1500 480 200 100 Number 1 0 Bowel Movements Output, Urine 850 550 600 Physical Exam: CV: RRR LUNGS:COARSE BS THROUGHOUT ABD: SOFT, FLAT, +BS EXT: DRY CLEAN DRSG ON RIGHT LEG DISTAL CMS GROSSLY INTACT Assessment/Plan Assessment/Plan STABLE FROM A VASCULAR STANDPOINT PLAN TRC PER SHAYY STABLE FOR HOME D/C FROM VASCULAR STANDPOINT F/U WITH DR PINEDA 3 DAYS POST D/C Core Measures/Miscellaneous Venous Thromboembolism VTE Risk Factors: Age > 40, Surgery VTE Contraindications: No Contraindications No [facility] VTE Prophylaxis D/T: Peripheral Vascular Dx, Surgical Procedure LE VTE Diagnosis: No VTE Type: NONE VTE Confirmed by (Test): NONE Beta Jerry Is Beta Jerry a Home Med? Yes If Yes, Was This Ordered Today? Yes Antibiotics Is Patient on Antibiotics? Yes If Yes: infection
[2016-12-16 12:11] LABS: ABSOLUTE BASOPHIL COUNT 0 /CUMM (0.0-0.2); ABSOLUTE EOSINOPHIL COUNT 0.1 /CUMM (0.0-0.7); ABSOLUTE LYMPH COUNT 0.6 /CUMM (1.2-3.4); ABSOLUTE MONOCYTE COUNT 0.9 /CUMM (0.10-0.60); BASOPHIL % 0.4 % (0.0-2.0); EOSINOPHIL % 0.8 % (0-5); HEMATOCRIT 37.6 % (37-47); MEAN CORPUSCULAR HGB 31.3 PG (27.0-31.0); MEAN CORPUSCULAR HGB CONC 32.9 G/DL (33.0-37.0); PLATELET COUNT 533 /CUMM (130-400); RBC DISTRIBUTION WIDTH 14.7 % (11.5-14.5); RED BLOOD CELL CT 3.96 /CUMM (4.20-5.40); WHITE BLOOD CELL COUNT 10.5 /CUMM (4.8-10.8)
--- NOTE | 2016-12-16 12:30 | NUR ---
AT 1040, PT'S 02 SAT 77% ON 1.5LNC. PT STATING DIFFICULTY BREATHING. DENIES CHEST PAIN. PT STATES UNABLE TO "DO WELL WITH IST YESTERDAY". STATES ONLY DOING "HALF OF WHAT I COULD DO YESTERDAY". RESPIRATORY CALLED TO BEDSIDE. DIFFICULT TO FIND ACCURATE O2 READING. FOUND ON EAR AND COMPARED TO TOE. PLACED ON 2LNC, ONLY 86%. PLACED ON 2.5LNC, ONLY 88%. PLACED ON 3LNC, 89-90%. SURGICAL PA CALLED, INSTRUCTED TO CALL DR. COONEY. DR. COONEY RECOMMENEDED CTA AND ARTERIAL BLOOD GASES. SURGICAL PA NOTIFIED AND ORDERS PLACED. ALSO REQUESTED CBC AND BEP. BLOOD GASES AND BLOOD DRAWN PERIPHERALLY. PT OFF FLOOR IN CTA NOW. PER SURGICAL PA, OKAY FOR NURSING TO CHANGE DRESSING TO RLE. WILL CHANGE WHEN PT RETURNS. SURGICAL PA TO ADD TROPONIN TO BLOOD WORK. PT DROWSY/AROUSABLE. FORGETFUL.
[2016-12-16 12:35] LABS: GRANULOCYTE % 85.2 % (42.2-75.2)
--- NOTE | 2016-12-16 13:49 | CT SCAN REPORT ---
EXAMINATION: CT ANGIOGRAM OF THE CHEST WITH CONTRAST (CT PULMONARY ANGIOGRAM FOR PE) CLINICAL INFORMATION: Increased oxygen requirement. Hypoxia. COMPARISON: Chest CT from 12/15/2016. TECHNIQUE: Prior to contrast administration, noncontrast localization images were obtained. Subsequently, multidetector volumetric imaging was performed from the thoracic inlet to below the diaphragms following the administration of 100 mL of Optiray 350 intravenous contrast. No contrast reaction reported. Sagittal, coronal, and MIP oblique sagittal reformatted images were obtained on the CT workstation, uploaded to PACS, and reviewed. Total exam dose-length product 237 mGy-cm FINDINGS: QUALITY OF STUDY/CONTRAST BOLUS: Satisfactory. PULMONARY ARTERIES: The pulmonary artery trunk and central arteries are mildly enlarged, as may be seen in pulmonary arterial hypertension. There are no embolic filling defects identified within the main, lobar or segmental vessels. THORACIC AORTA: There is atherosclerotic calcification of the thoracic aorta without aneurysm or dissection. LUNGS AND PLEURA: Again noted is extensive centrilobular emphysema and bronchial wall thickening of both lungs. There is persistent patchy ground glass attenuation and interlobular septal thickening within upper lobes. A xqmsn-wa-bcykxsbv right pleural effusion remains similar in size compared to 12/15/2016. Also, the small left pleural effusion is unchanged. Compressive atelectasis is present within each lower lobe. There is hazy opacity, suggestive of mild atelectasis, in the dependent aspect of each upper lobe. No pneumothorax or other significant interval change. MEDIASTINUM: Again noted is multichamber cardiac enlargement and atherosclerotic calcification of the coronary arteries. There is reflux of contrast into the inferior vena cava, indicative of elevated right-sided cardiac pressures. Trace amount of fluid is present within the pericardial sac. The tip of a right subclavian central venous catheter terminates in the distal superior vena cava. Again noted is mild gaseous distention of the proximal esophagus without evidence of esophageal mass. Thyroid gland is heterogeneous and multinodular in appearance. LYMPHATICS: No pathologic sized axillary, hilar or mediastinal lymph nodes. UPPER ABDOMEN: Again noted is a large simple cyst at the visualized upper pole of the left kidney. OSSEOUS STRUCTURES: No new skeletal findings in the chest compared to 12/15/2016. IMPRESSION: 1. No evidence of pulmonary embolism. 2. Severe pulmonary emphysema. 3. Pulmonary arteries are mildly enlarged -- as may be seen in pulmonary arterial hypertension. 4. Coronary artery atherosclerotic disease, cardiomegaly, interstitial pulmonary edema and pleural effusions (right pleural effusion remaining larger than left). Compressive atelectasis is present within the lower lobes.
--- NOTE | 2016-12-16 13:55 | RADIOLOGY REPORT ---
EXAMINATION:\H\ \N\XR CHEST CLINICAL INFORMATION: Increased oxygen requirement. Elevated bnp. COMPARISON: CXR from 12/14/2016 TECHNIQUE: AP view of the chest was obtained. FINDINGS: The tip of a central catheter is located in the distal superior vena cava. Again noted is a mildly enlarged cardiac silhouette and mild enlargement of central pulmonary vessels. There is increased prominence of peribronchial interstitium in the perihilar regions and upper lung zones. There is persistent opacity in the retrocardiac region of left lower lobe, unchanged from 12/14/2016. Small pleural effusions are evident. No acute skeletal abnormality. IMPRESSION: 1. Cardiomegaly. 2. Peribronchial interstitial thickening in the perihilar regions and upper lung zones is slightly worse compared to 12/14/2016. Mild cardiogenic pulmonary edema is suspected. 3. The opacity in the retrocardiac region of left lower lobe is unchanged, and this appears to represent atelectasis on the recent chest CT exams.
[2016-12-16 14:19] VITALS: BP 110/80
[2016-12-16 16:00] VITALS: BP 148/70
--- NOTE | 2016-12-16 16:11 | PN- Resident CRCU ---
Subjective HPI/CRCU Issues: Postoperative hypoxemia 24 Hour Events: Medical consult/pulmonary consult were obtained on the [facility] floor, but patient was transferred to ICU today for worsening hypoxemia. Objective Vital Signs & I&O Last 8 Hrs of Vitals and I&O: Intake & Output 12/16 1600 Intake Total 280 Output Total 600 Balance -320 Intake, IV 40 Intake, Oral 240 Output, Urine 600 Exam General Appearance: alert, awake, mild distress, thin Head: atraumatic, normal appearance Ears, Nose, Throat: moist mucus membranes Neck: normal inspection, supple Respiratory: decreased breath sounds Cardiovascular: regular rate/rhythm Gastrointestinal: normal bowel sounds, soft, non-tender Extremities: no edema, s/p wound dressing on RLE Cranial Nerves: normal hearing, normal speech, PERRL Skin: chronic ulcer, RLE Walls Date In: 12/16/16 IV (Peripheral) Still Needed? Yes IV Drips IV Drips: IV heparin Nutrition Nutrition: P.O. diet Current Medications: Current Medications Sig/Chris Start time Last Medication Dose Route Stop Time Status Admin Acetaminophen 650 MG Q6PRN PRN 12/12 1715 AC 12/16 PO 1354 Albuterol Sulfate 3 ML EVERY 4 HRS/AWAKE 12/14 1200 AC 12/16 INH 1631 Apixaban 5 MG BID 12/13 1000 DC 12/16 PO 1044 Aspirin 325 MG DAILY 12/12 1239 DC 12/16 PO 1044 Atorvastatin Calcium 20 MG 1700 12/13 1700 AC 12/16 PO 1854 Docusate Sodium 100 MG DAILY NEEDED PRN 12/12 1715 AC PO Escitalopram Oxalate 10 MG DAILY 12/13 1000 AC 12/16 PO 1044 Furosemide 40 MG ONCE ONE 12/16 1400 DC 12/16 IV 12/16 1401 1355 Gabapentin 300 MG DAILY 12/13 1000 AC 12/16 PO 1041 Heparin Sodium 25,000 UNIT Q24H 12/16 1445 AC 12/16 (Porcine) IV 1639 Sodium Chloride 500 ML Ipratropium [place] 2.5 ML EVERY 4 HRS/AWAKE 12/14 1200 AC 12/16 INH 1631 Losartan Potassium 100 MG DAILY 12/13 1000 AC 12/16 PO 1044 Meropenem 1 GM Q8 12/13 1400 AC 12/16 IV 1355 Metoprolol Tartrate 25 MG BID 12/13 2200 AC 12/16 PO 1042 Mirtazapine 15 MG QPM 12/15 2200 AC 12/15 PO 2114 Morphine Sulfate 2 MG DAILY NEEDED PRN 12/15 0945 AC IV Omeprazole 20 MG DAILY AC 12/14 0700 AC 12/16 PO 0624 Ondansetron HCl 4 MG Q8P PRN 12/12 1715 AC IV Oxycodone/ 1 TAB Q4P PRN 12/12 1715 AC 12/16 Acetaminophen PO 1754 Oxycodone/ 2 TAB Q4P PRN 12/12 1715 AC 12/[address] Scan Findings: CTA 12/16: 1. No evidence of pulmonary embolism. 2. Severe pulmonary emphysema. 3. Pulmonary arteries are mildly enlarged -- as may be seen in pulmonary arterial hypertension. 4. Coronary artery atherosclerotic disease, cardiomegaly, interstitial pulmonary edema and pleural effusions (right pleural effusion remaining larger than left). Compressive atelectasis is present within the lower lobes. Impression/Plan Impression/Problem List Impression: 80-year-old lady who is an every day smoker with pmh of HTN, HLD, A.fib on Eliquis, severe PAD s/p femoral bypass in January of 2014, venous stasis ulcer, TIA , CVA, polio, was admitted for postoperative hypoxemia following an elective Rt. lower extremity venogram for Rt. leg PAD on 12/12/16 likely from pleural effusions and bibasilar atelectasis. Problem List: 1. Postoperative hypoxemia 2. Pleural effusion 3. COPD (chronic obstructive pulmonary disease) with emphysema 4. PVD (peripheral vascular disease) Pain Ratin Pain Location: Chronic nonhealing ulcer of the right leg PAD Pain Goal: Pain 4 or less Pain Plan: po tyrenol po percocet/IV morphine neurontin Tomorrow's Labs & Rationales: CBC: on IV heparin ICU bundle: diuretics Plan Respiratory: - Post operative hypoxemia likely secondary to pleural effusion (Rt > Lt) and bibasilar atelectasis: * Continue oxygen support to keep O2> 92%. PE was ruled out by CTA. * US-guided thoracentesis is scheduled on Sunday (12/18). * Continue IV heparin anticipating thoracentesis and hold eliquis. * Will give gentle diuresis with IV lasix 40mg daily for now, follow up cardiology consult/echocardiogram, monitor BEP. * Continue incentive spirometry. - Sevevere COPD/emphysema: current every-day smoker * Continue TR for [id number] nebulizer treatments (albuterol/atrovent) * Continue oxygen support Infectious Diseases: - Chronic ulcer on right pretibial area: continued on IV meropenem # 5 in the hospital, pt has been on IV meropenem for the past week. Cardiovascular: - A.fib: Continue IV heparin anticipating thoracentesis. Rate control with lopressor 25mg bid. - HTN: Well controlled, continue lopressor 25mg bid, cozaar 100mg daily - HLD: c/w lipitor 20mg daily Hematology: - on anticoagulation: with IV heparin for A.fib, check PTT per protocol Metabolic: Na: 135, K 4.9 Alimentary: Heart healthy diet Neurological: - history of CVA: aspirin was held with IV heparin. Continue lipitor. - depression: c/w remeron, lexapro Skin: - Chronic nonhealing ulcer of the right leg s/p right leg angiogram on 2016: Continue wound care and further management per vascular surgery Skin Care Protocol Ordered? Yes DVT/Prophylaxis: pharmacological Code Status: Full Code
--- NOTE | 2016-12-16 16:28 | PN- CRCU ---
Subjective HPI/Critical Care Issues: Patient transferred to the critical care unit for worsening hypoxemia. The patient is currently mildly short of breath with an O2 requirement of 3 L nasal cannula. She remains hemodynamically stable and afebrile. She reports mild increased shortness of breath offers no new complaints today. Objective Current Medications: Current Medications Sig/Chris Start time Last Medication Dose Route Stop Time Status Admin Acetaminophen 650 MG Q6PRN PRN 12/12 1715 AC 12/16 PO 1354 Albuterol Sulfate 3 ML EVERY 4 HRS/AWAKE 12/14 1200 AC 12/16 INH 1213 Apixaban 5 MG BID 12/13 1000 DC 12/16 PO 1044 Aspirin 325 MG DAILY 12/12 1239 DC 12/16 PO 1044 Atorvastatin Calcium 20 MG 1700 12/13 1700 AC 12/15 PO 1640 Docusate Sodium 100 MG DAILY NEEDED PRN 12/12 1715 AC PO Escitalopram Oxalate 10 MG DAILY 12/13 1000 AC 12/16 PO 1044 Furosemide 40 MG ONCE ONE 12/16 1400 DC 12/16 IV 12/16 1401 1355 Gabapentin 300 MG DAILY 12/13 1000 AC 12/16 PO 1041 Heparin Sodium 25,000 UNIT Q24H 12/16 1445 AC (Porcine) IV Sodium Chloride 500 ML Ipratropium [place] 2.5 ML EVERY 4 HRS/AWAKE 12/14 1200 AC 12/16 INH 1213 Losartan Potassium 100 MG DAILY 12/13 1000 AC 12/16 PO 1044 Meropenem 1 GM Q8 12/13 1400 AC 12/16 IV 1355 Metoprolol Tartrate 25 MG BID 12/13 2200 AC 12/16 PO 1042 Mirtazapine 15 MG QPM 12/15 2200 AC 12/15 PO 2114 Morphine Sulfate 2 MG DAILY NEEDED PRN 12/15 0945 AC IV Omeprazole 20 MG DAILY AC 12/14 0700 AC 12/16 PO 0624 Ondansetron HCl 4 MG Q8P PRN 12/12 1715 AC IV Oxycodone/ 1 TAB Q4P PRN 12/12 1715 AC 12/15 Acetaminophen PO 2101 Oxycodone/ 2 TAB Q4P PRN 12/12 1715 AC 12/15 Acetaminophen PO 2200 Vital Signs & I&O Last 24 Hrs of Vitals and I&O: Vital Signs Date Time Temp Pulse Resp B/P B/P Pulse O2 O2 Flow FiO2 Mean Ox Delivery Rate 12/16 1419 98.0 89 20 110/80 94 Nasal 1.5L Cannula 12/16 1044 98.2 106 160/100 12/16 1042 98.2 106 160/100 12/16 0840 92 Nasal 3.0L Cannula 12/16 0800 93 Nasal 1.5L Cannula 12/16 0739 98.4 106 20 150/90 90 Nasal 1.5L Cannula 12/16 0000 Nasal 1.5L Cannula 12/15 2225 98.0 99 20 136/90 98 Nasal 1.5L Cannula 12/15 1752 95 Nasal 2.0L Cannula Intake & Output 12/16 1600 12/16 0800 12/16 0000 Intake Total 520 1530 Output Total 400 850 Balance 120 680 Intake, IV 40 30 Intake, Oral 480 1500 Number 0 Bowel Movements Output, Urine 400 850 Physical Exam General Appearance: awake, comfortable, thin, chronically ill Head: atraumatic Neck: supple Respiratory: severely diminished breath sounds with basilar crackles Cardiovascular: regular rate/rhythm (heart sounds distant) Gastrointestinal: normal bowel sounds, soft, non-tender Extremities: no edema, right lower extremity bandages in place Skin: warm/dry Results Last 24 Hrs of Lab Results: Laboratory Tests 12/16/16 1140: Anion Gap 8, Estimated GFR > 60, BUN/Creatinine Ratio 26.7 H, Calcium 8.9, Phosphorus 3.1, Magnesium 1.9, Troponin I < 0.01, CBC w Diff NO MAN DIFF REQ, RBC 3.96 L, MCV 95.0, MCH 31.3 H, RDW 14.7 H, MPV 8.0, Gran % 85.2 H, Lymphocytes % 5.4 L, Monocytes % 8.2, Eosinophils % 0.8, Basophils % 0.4, Absolute Granulocytes 9.0 H, Absolute Lymphocytes 0.6 L, Absolute Monocytes 0.9 H, Absolute Eosinophils 0.1, Absolute Basophils 0, PUBS MCHC 32.9 L 12/16/16 1110: pH 7.49 H, pCO2 36, pO2 66 L, HCO3 27, ABG O2 Sat (Measured) 92.0 L, P-50 ( Temp Corrected) N, Carboxyhemoglobin 1.6, O2 Concentration % 3L, Temperature 98.2, O2 Delivery Method N/C, Phlebotomy Draw Site LEFT BRACHIAL Diagnostic Data CXR Findings: 1. Cardiomegaly. 2. Peribronchial interstitial thickening in the perihilar regions and upper lung zones is slightly worse compared to 12/14/2016. Mild cardiogenic pulmonary edema is suspected. 3. The opacity in the retrocardiac region of left lower lobe is unchanged, and this appears to represent atelectasis on the recent chest CT exams. Impression/Plan Impression/Plan Impression/Plan: 1. Postoperative hypoxemia, most likely related to pulmonary edema and atelectasis. CT angiogram is negative for pulmonary embolism. 2. Status post right LE venogram for PAD, right lower extremity non-healing ulcer. 3. History of osteomyelitis, on meropenem. 4. Long-term smoking, hyperinflation on chest x-ray suggestive of advanced COPD. Recommendations: * Cardiology consult. Diuresis as recommended. Check an ECHO. * Incentive spirometry to continue. * TRC for [id number] nebulizer treatments - albuterol and atrovent. * Bedside spirometry, to be done by respiratory. * Out of bed to chair. * Continue with oxygen weaning, keep saturations greater than 92% at rest, and 88% on exertion. * Continue with IV Heparin for DVT prophylaxis. * Continue all supportive care. * Short-term rehabilitation suggested however the patient has 24-hour care at home.
--- NOTE | 2016-12-16 16:48 | NUR ---
PT TRANSFERRED FROM FLOOR. BEDSIDE REPORT RECEIVED FROM 2N RN. PT WAS TRANSFERRED ON [facility] WITH LINKER UP MONITORING. PT IS ALERT, ORIENTED. MONITOR AFIB WITH HR 90-100. PT DENIES PAIN, NO SHORTNESS OF BREATH. LUNGS CLEAR, DISTANT AT BASES. WHEELER IS PATENT, 1200 MLS OUT AT 1600. STARTED ON HEPARIN DRIP DVT PROTOCOL VIA HER PICC LINE. ORIENTED TO ICU ENVIRONMENT. PT HAS HER RIGHT LOWER LEG WRAPPED IN KERLEX, LEFT LEG IS DISCOLORED, UNABLE TO PALPATE PEDAL PULSES, POPLITEAL ARE PRESENT. HER PERINEAL AREA IS RED AND IRRITATED AND SHE HAS A ROUND WET RED INDURATED AREA ON HER BUTTOCKS. WOUND CONSULT PLACE.
[2016-12-16 23:21] LABS: PTT 40 SEC (25-37)
[2016-12-17] VITALS: BP 158/95
--- NOTE | 2016-12-17 01:31 | NUR ---
PT REQUESTED TYLENOL EARLIER FOR R LEG PAIN WITH MOD RELIEF OF PAIN, REQUESTING MORE MEDICATION FOR R LEG PAIN. PERCOCET 1 TAB PO GIVEN WITH RELIEF. R LEG DRSG D/I UNABLE TO PALPATE PULSES EXTREMITIES WARM TO TOUCH WITH ADEQUATE MOVEMENT
--- NOTE | 2016-12-17 05:37 | PN- Vascular Surgery ---
Subjective Subjective: TRANSFERRED TO ICU LAST EVENING FOR ACUTE HYPOXEMIA CTA CHEST NEGATIVE FOR PE BUT SHWED LARGE RIGHT SIDED PLEURAL EFFUSION\ ICU TEAM ASSUMED CARE GENTLE DIURESIS STARTED WITH LASIX\ R CHEST THORACENTESIS SCHEDULED FOR SUNDAY ELIQUIS STOPPED LAST EVENING, HEP GTT STARTED RESTING COMFORTABLY NOW 94% ON 4L NO MAJOR EVENTS OVERNIGHT Objective Vital Signs and I&Os Vital Signs Date Time Temp Pulse Resp B/P B/P Pulse O2 O2 Flow FiO2 Mean Ox Delivery Rate 12/17 0419 94 Nasal 4.0L Cannula 12/17 0000 96 Nasal 4.0L Cannula 12/17 0000 97.0 86 22 158/95 96 Nasal 4.0L Cannula 12/16 2207 93 128/47 12/17 1999 91 Nasal 4.0L Cannula 12/16 1654 93 Nasal 3.0L Cannula 12/16 1600 97.4 109 20 148/70 92 Nasal 3.0L Cannula 12/16 1600 91 Nasal 3.0L Cannula 12/16 1419 98.0 89 20 110/80 94 Nasal 1.5L Cannula 12/16 1044 98.2 106 160/100 12/16 1042 98.2 106 160/100 12/16 0840 92 Nasal 3.0L Cannula 12/16 0800 93 Nasal 1.5L Cannula 12/16 0739 98.4 106 20 150/90 90 Nasal 1.5L Cannula Intake & Output 12/17 0800 12/17 0000 12/16 1600 12/16 0800 12/16 0000 12/15 1600 Intake Total 254 292 4180 510 Output Total 2600 400 850 Balance -2007 120 680 510 Intake, IV 202 40 30 30 Intake, Oral 175 321 8780 480 Number 0 1 Bowel Movements Output, Urine 2600 400 850 Physical Exam: CV: AFIB LUNGS: COARSE BS DECREASED IN BASES ABD: SOFT, +BS EXT: RIGHT LEG DRSG IN PLACE TOES WARM WHEELER: CLEAR URINE, LARGE AMOUNT Assessment/Plan Assessment/Plan VASCULAR STABLE\ LARGE RIGHT PLEURAL EFFUSION PLAN HEP GTT RIGHT LEG DRSG BY NURSING MAY BE OOB TO CHAIR CONTINUE DIURESIS TODAY PLAN FOR RIGHT CHEST THORACENTESIS IN AM Core Measures/Miscellaneous Wheeler Catheter Date In: 12/16/16 Venous Thromboembolism VTE Risk Factors: Age > 40, Surgery VTE Contraindications: No Contraindications No [facility] VTE Prophylaxis D/T: Peripheral Vascular Dx, Surgical Procedure LE VTE Diagnosis: No VTE Type: NONE VTE Confirmed by (Test): NONE Beta Jerry Is Beta Jerry a Home Med? Yes If Yes, Was This Ordered Today? Yes Antibiotics Is Patient on Antibiotics? Yes If Yes: infection
[2016-12-17 08:00] VITALS: BP 140/64
[2016-12-17 08:15] LABS: ABSOLUTE BASOPHIL COUNT 0.2 /CUMM (0.0-0.2); ABSOLUTE EOSINOPHIL COUNT 0.4 /CUMM (0.0-0.7); ABSOLUTE GRANULOCYTE CT 6.9 /CUMM (1.4-6.5); ABSOLUTE LYMPH COUNT 1.3 /CUMM (1.2-3.4); ABSOLUTE MONOCYTE COUNT 0.9 /CUMM (0.10-0.60); BASOPHIL % 1.6 % (0.0-2.0); EOSINOPHIL % 3.7 % (0-5); GRANULOCYTE % 71.7 % (42.2-75.2); HEMATOCRIT 39.3 % (37-47); MEAN CORPUSCULAR HGB 30.8 PG (27.0-31.0); MEAN CORPUSCULAR HGB CONC 32.3 G/DL (33.0-37.0); MEAN CORPUSCULAR VOLUME 95.5 FL (81.0-99.0); MEAN PLATELET VOLUME 8.5 FL (7.4-10.4); PLATELET COUNT 490 /CUMM (130-400); RED BLOOD CELL CT 4.11 /CUMM (4.20-5.40); WHITE BLOOD CELL COUNT 9.7 /CUMM (4.8-10.8)
[2016-12-17 09:17] LABS: PTT 105 SEC (25-37)
--- NOTE | 2016-12-17 09:49 | Cons- Cardiology ---
General Information and HPI Consulting Request Date of Consult: 12/17/16 Requested By: TERENCE PINEDA MD Reason for Consult: Congestive heart failure in a patient with underlying atrial fibrillation, postoperative from extensive vascular procedure with desaturation. Source of Information: patient, old records Exam Limitations: no limitations History of Present Illness: The patient is a 80-year-old female with chronic atrial fibrillation on anticoagulation. She has extensive vascular disease and on December 12 underwent an extensive procedure involving multiple angiograms and angioplasty and stenting. Postoperatively she became somewhat hypoxic and eventually was transferred to the intensive care unit yesterday for more intensive care. Chest x-rays have shown some increase in pulmonary vascular congestion. There has been no chest pain. Troponin yesterday was negative. ProBNP was 5640. Stress test in 2013 was negative for ischemia. There are no old echocardiograms in the chart. Echocardiogram done today on preliminary review shows good left ventricular systolic function with LVH, dilated atria and moderate mitral regurgitation with mildly elevated pulmonary artery pressure. Allergies/Medications Allergies: Coded Allergies: cefepime (? 12/07/16) doxycycline (? 12/07/16) sulfamethoxazole (From BACTRIM) (? 12/07/16) trimethoprim (From BACTRIM) (? 12/07/16) Home Med List: Apixaban (Eliquis) 5 MG TABLET 1 TAB PO BID A FIB (Reported) Atorvastatin Calcium (Lipitor) 20 MG TABLET 1 TAB PO DAILY CHOLESTEROL ( Reported) Clonazepam 0.25 MG TAB.RAPDIS 1 TAB PO BID ANXIETY (Reported) TAKES 0.5 AT BEDTIME Ergocalciferol (Vitamin D2) (Vitamin D2) 50,000 UNIT CAPSULE 1 CAP PO QW VITAMIN D DEFICIENCY (Reported) Escitalopram Oxalate (Lexapro) 10 MG TABLET 1 TAB PO DAILY ANXIETY \ DEPRESSION (Reported) Gabapentin 300 MG CAPSULE 1 CAP PO DAILY NEUROPATHY (Reported) Losartan (Cozaar) 100 MG TABLET 1 TAB PO DAILY HTN (Reported) Meropenem (Merrem) 1 GRAM VIAL LEG WOUND (Reported) RUNS CONTINUOUSLY AT HOME Metoprolol Tartrate 25 MG TABLET 1 TAB PO BID A FIB (Reported) Mirtazapine (Remeron) 15 MG TABLET 1 TAB PO QPM SLEEP (Reported) Oxycodone HCl/Acetaminophen (Percocet 5-325 MG Tablet) 5 MG-325 MG TABLET 1 TAB PO Q4-6H PRN PAIN Current Medications: Current Medications Sig/Chris Start time Last Medication Dose Route Stop Time Status Admin Acetaminophen 650 MG .STK-MED ONE 12/16 2000 DC PO 12/16 2000 Acetaminophen 650 MG .STK-MED ONE 12/16 1353 DC PO 12/16 1354 Acetaminophen 650 MG Q6PRN PRN 12/12 1715 AC 12/16 PO 2002 Albuterol Sulfate 3 ML EVERY 4 HRS/AWAKE 12/14 1200 AC 12/17 INH 0806 Apixaban 5 MG BID 12/13 1000 DC 12/16 PO 1044 Aspirin 325 MG DAILY 12/12 1239 DC 12/16 PO 1044 Atorvastatin Calcium 20 MG 1700 12/13 1700 AC 12/16 PO 1854 Docusate Sodium 100 MG DAILY NEEDED PRN 12/12 1715 AC PO Escitalopram Oxalate 10 MG DAILY 12/13 1000 AC 12/16 PO 1044 Furosemide 40 MG DAILY 12/17 1000 AC 12/17 IV 0923 Furosemide 40 MG ONCE ONE 12/16 2100 CAN IV 12/16 2101 Furosemide 40 MG ONCE ONE 12/16 1400 DC 12/16 IV 12/16 1401 1355 Gabapentin 300 MG DAILY 12/13 1000 AC 12/16 PO 1041 Heparin Sodium 5,000 UNIT .STK-MED ONE 12/17 0107 DC (Porcine) IV 12/17 0108 Heparin Sodium 4,425 UNIT BOLUS ONE 12/17 0045 DC 12/17 (Porcine) IV 12/17 0046 0110 Heparin Sodium 25,000 UNIT Q24H 12/16 1445 AC 12/16 (Porcine) IV 1639 Sodium Chloride 500 ML Ipratropium [place] 2.5 ML EVERY 4 HRS/AWAKE 12/14 1200 AC 12/17 INH 0806 Losartan Potassium 100 MG DAILY 12/13 1000 AC 12/16 PO 1044 Meropenem 1 GM Q8 12/13 1400 AC 12/17 IV 0659 Metoprolol Tartrate 25 MG BID 12/13 2200 AC 12/16 PO 2207 Mirtazapine 15 MG QPM 12/15 2200 AC 12/16 PO 2205 Morphine Sulfate 2 MG DAILY NEEDED PRN 12/15 0945 AC IV Omeprazole 20 MG DAILY AC 12/14 0700 AC 12/17 PO 0659 Ondansetron HCl 4 MG Q8P PRN 12/12 1715 AC IV Oxycodone/ 1 TAB Q4P PRN 12/12 1715 AC 12/16 Acetaminophen PO 2343 Oxycodone/ 2 TAB Q4P PRN 12/12 1715 AC 12/15 Acetaminophen PO 2200 Review of Systems Review of Systems: No other complaints in the review of systems at this time Past History Travel History Traveled to [place] past 21 day Yes Medical History Blood Transfusion Hx: No Neurological: CVA, peripheral neuropathy EENT: cataracts Cardiovascular: AFIB, PVD Respiratory: NONE Gastrointestinal: NONE Hepatic: NONE Renal: NONE Musculoskeletal: OSTEOMYELITIS POLIO Psychiatric: anxiety, depression Endocrine: NONE Blood Disorders: NONE Cancer(s): FACIAL CANCER 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: 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 Surgical History Surgical History: POPLITEAL FEMORAL BYPASS Psychosocial History Services at Home: Home Health Aide, Nursing Smoking Status: Current Some Day Smoker Exam & Diagnostic Data Vital Signs and I&O Vital Signs Date Time Temp Pulse Resp B/P B/P Pulse O2 O2 Flow FiO2 Mean Ox Delivery Rate 12/17 0828 94 Nasal 4.0L Cannula 12/17 0800 97.1 82 15 140/64 95 Nasal 4.0L Cannula 12/17 0800 89 Nasal 5.5L Cannula 12/17 0419 94 Nasal 4.0L Cannula 12/17 0000 96 Nasal 4.0L Cannula 12/17 0000 97.0 86 22 158/95 96 Nasal 4.0L Cannula 12/16 2207 93 128/47 12/16 2000 91 Nasal 4.0L Cannula 12/16 1654 93 Nasal 3.0L Cannula 12/16 1600 97.4 109 20 148/70 92 Nasal 3.0L Cannula 12/16 1600 91 Nasal 3.0L Cannula 12/16 1419 98.0 89 20 110/80 94 Nasal 1.5L Cannula 12/16 1044 98.2 106 160/100 12/16 1042 98.2 106 160/100 Intake & Output 12/17 1600 12/17 0800 12/17 0000 12/16 1600 12/16 0800 12/16 0000 Intake Total 341 443 807 2506 Output Total 870 2600 400 850 Balance - 120 680 Intake, IV 241 202 40 30 Intake, Oral 100 592 508 3600 Number 0 Bowel Movements Output, Urine 870 2600 400 850 Physical Exam: She is in no distress HEENT exam is normal Neck veins not distended Chest is clear Heart reveals irregular rhythm and no murmurs Extremities no edema Labs/Zachary Results: Laboratory Tests 12/17 12/17 12/16 0700 0600 2230 Chemistry Sodium (137 - 145 mmol/L) 140 Potassium (3.5 - 5.1 mmol/L) 4.8 Chloride (98 - 107 mmol/L) 99 Carbon Dioxide (22 - 30 mmol/L) 34 H Anion Gap (5 - 16) 7 BUN (7 - 17 mg/dL) 18 H Creatinine (0.5 - 1.0 mg/dL) 0.7 Estimated GFR (>60 ml/min) > 60 Glucose (65 - 99 mg/dL) 85 Calcium (8.4 - 10.2 mg/dL) 9.0 Phosphorus (2.5 - 4.5 mg/dL) 3.7 Magnesium (1.6 - 2.3 mg/dL) 1.9 Total Bilirubin (0.2 - 1.3 mg/dL) 0.9 AST (14 - 36 U/L) 18 ALT (9 - 52 U/L) 30 Albumin (3.5 - 5.0 g/dL) 2.5 L Coagulation APTT (25 - 37 SEC) 105 *H Cancelled 40 H Hematology CBC w Diff NO MAN DIFF REQ WBC (4.8 - 10.8 /CUMM) 9.7 RBC (4.20 - 5.40 /CUMM) 4.11 L Hgb (12.0 - 16.0 G/DL) 12.7 Hct (37 - 47 %) 39.3 MCV (81.0 - 99.0 FL) 95.5 MCH (27.0 - 31.0 PG) 30.8 RDW (11.5 - 14.5 %) 15.0 H Plt Count (130 - 400 /CUMM) 490 H MPV (7.4 - 10.4 FL) 8.5 Gran % (42.2 - 75.2 %) 71.7 Lymphocytes % (20.5 - 51.1 %) 13.6 L Monocytes % (1.7 - 9.3 %) 9.4 H Eosinophils % (0 - 5 %) 3.7 Basophils % (0.0 - 2.0 %) 1.6 Absolute Granulocytes (1.4 - 6.5 /CUMM) 6.9 H Absolute Lymphocytes (1.2 - 3.4 /CUMM) 1.3 Absolute Monocytes (0.10 - 0.60 /CUMM) 0.9 H Absolute Eosinophils (0.0 - 0.7 /CUMM) 0.4 Absolute Basophils (0.0 - 0.2 /CUMM) 0.2 PUBS MCHC (33.0 - 37.0 G/DL) 32.3 L 12/16 12/16 1140 1110 Blood Gas pH (7.35 - 7.45 PH) 7.49 H pCO2 (35 - 45 TORR) 36 pO2 (80 - 100 TORR) 66 L HCO3 (21 - 28 MEQ/L) 27 ABG O2 Sat (Measured) (>96.0 %) 92.0 L P-50 (Temp Corrected) N Carboxyhemoglobin (1.5 - 5.0 %) 1.6 O2 Concentration % 3L Temperature (97.0 - 100.0 FARH) 98.2 O2 Delivery Method N/C Chemistry Sodium (137 - 145 mmol/L) 135 L Potassium (3.5 - 5.1 mmol/L) 4.9 Chloride (98 - 107 mmol/L) 97 L Carbon Dioxide (22 - 30 mmol/L) 30 Anion Gap (5 - 16) 8 BUN (7 - 17 mg/dL) 16 Creatinine (0.5 - 1.0 mg/dL) 0.6 Estimated GFR (>60 ml/min) > 60 BUN/Creatinine Ratio (7 - 25 %) 26.7 H Calcium (8.4 - 10.2 mg/dL) 8.9 Phosphorus (2.5 - 4.5 mg/dL) 3.1 Magnesium (1.6 - 2.3 mg/dL) 1.9 Troponin I (< 0.11 ng/ml) < 0.01 Hematology CBC w Diff NO MAN DIFF REQ WBC (4.8 - 10.8 /CUMM) 10.5 RBC (4.20 - 5.40 /CUMM) 3.96 L Hgb (12.0 - 16.0 G/DL) 12.4 Hct (37 - 47 %) 37.6 MCV (81.0 - 99.0 FL) 95.0 MCH (27.0 - 31.0 PG) 31.3 H RDW (11.5 - 14.5 %) 14.7 H Plt Count (130 - 400 /CUMM) 533 H MPV (7.4 - 10.4 FL) 8.0 Gran % (42.2 - 75.2 %) 85.2 H Lymphocytes % (20.5 - 51.1 %) 5.4 L Monocytes % (1.7 - 9.3 %) 8.2 Eosinophils % (0 - 5 %) 0.8 Basophils % (0.0 - 2.0 %) 0.4 Absolute Granulocytes (1.4 - 6.5 /CUMM) 9.0 H Absolute Lymphocytes (1.2 - 3.4 /CUMM) 0.6 L Absolute Monocytes (0.10 - 0.60 /CUMM) 0.9 H Absolute Eosinophils (0.0 - 0.7 /CUMM) 0.1 Absolute Basophils (0.0 - 0.2 /CUMM) 0 PUBS MCHC (33.0 - 37.0 G/DL) 32.9 L Miscellaneous Phlebotomy Draw Site LEFT BRACHIAL Diagnostic Data EKG Results EKG today shows atrial fibrillation at a rate of 98 with some nonspecific anterior T-wave inversions. There is no significant change from previous EKG. CXR Results PATIENT: FABIOLA MIKE PRESENT AGE: 80 PATIENT ACCOUNT NO: [id number] : 37 LOCATION: 2NA ORDERING PHYSICIAN: ROCIO DUFF SERVICE DATE: 12/16/16 EXAM TYPE: RAD - XRY-CHEST XRAY, ONE VIEW ONLY EXAMINATION:\H\ \N\XR CHEST CLINICAL INFORMATION: Increased oxygen requirement. Elevated bnp. COMPARISON: CXR from 12/14/2016 TECHNIQUE: AP view of the chest was obtained. FINDINGS: The tip of a central catheter is located in the distal superior vena cava. Again noted is a mildly enlarged cardiac silhouette and mild enlargement of central pulmonary vessels. There is increased prominence of peribronchial interstitium in the perihilar regions and upper lung zones. There is persistent opacity in the retrocardiac region of left lower lobe, unchanged from 12/14/2016. Small pleural effusions are evident. No acute skeletal abnormality. IMPRESSION: 1. Cardiomegaly. 2. Peribronchial interstitial thickening in the perihilar regions and upper lung zones is slightly worse compared to 12/14/2016. Mild cardiogenic pulmonary edema is suspected. 3. The opacity in the retrocardiac region of left lower lobe is unchanged, and this appears to represent atelectasis on the recent chest CT exams. DICTATED BY: ROM DELCID MD DATE/TIME DICTATED:12/16/161346 FILTER WASHER:RENNY DATE/TIME TRANSCRIBED:12/16/161346 CONFIDENTIAL, DO NOT COPY WITHOUT APPROPRIATE AUTHORIZATION. <Electronically signed in Other Vendor System> SIGNED BY: ROM DELCID MD 12/16/16 8234 Assessment/Plan Assessment/Plan This patient presents with shortness of breath and decreased oxygen saturation. She has evidence of some mild pulmonary vascular congestion and pleural effusions on chest x-ray. She has good left ventricular systolic function but chronic atrial fibrillation. There is no evidence of myocardial ischemia. LV function is good on echocardiogram. There is no evidence of pulmonary embolism. I recommend continued diuresis. If her right pleural effusion is not diminished then she is pending thoracentesis tomorrow. Copies To: ANETTE GONZALEZ,PRECIOUS [facility] Consult Acknowledgment - Thank you for your consult request.
--- NOTE | 2016-12-17 09:50 | PN- CRCU ---
Subjective HPI/Critical Care Issues: The patient is awake and alert. She continues to intermittently desaturate. She has a significant right greater than left pleural effusion, noting she is scheduled for thoracentesis tomorrow as she was on Eliquis. She denies any significant sputum production, fever or chills. Overall she feels unwell and has ongoing chronic right lower extremity pain. Objective Current Medications: Current Medications Sig/Crhis Start time Last Medication Dose Route Stop Time Status Admin Acetaminophen 650 MG .STK-MED ONE 12/16 2000 DC PO 12/16 2000 Acetaminophen 650 MG .STK-MED ONE 12/16 1353 DC PO 12/16 1354 Acetaminophen 650 MG Q6PRN PRN 12/12 1715 AC 12/16 PO 2002 Albuterol Sulfate 3 ML EVERY 4 HRS/AWAKE 12/14 1200 AC 12/17 INH 0806 Apixaban 5 MG BID 12/13 1000 DC 12/16 PO 1044 Aspirin 325 MG DAILY 12/12 1239 DC 12/16 PO 1044 Atorvastatin Calcium 20 MG 1700 12/13 1700 AC 12/16 PO 1854 Docusate Sodium 100 MG DAILY NEEDED PRN 12/12 1715 AC PO Escitalopram Oxalate 10 MG DAILY 12/13 1000 AC 12/16 PO 1044 Furosemide 40 MG DAILY 12/17 1000 AC 12/17 IV 0923 Furosemide 40 MG ONCE ONE 12/16 2100 CAN IV 12/16 2101 Furosemide 40 MG ONCE ONE 12/16 1400 DC 12/16 IV 12/16 1401 1355 Gabapentin 300 MG DAILY 12/13 1000 AC 12/16 PO 1041 Heparin Sodium 5,000 UNIT .STK-MED ONE 12/17 0107 DC (Porcine) IV 12/17 0108 Heparin Sodium 4,425 UNIT BOLUS ONE 12/17 0045 DC 12/17 (Porcine) IV 12/17 0046 0110 Heparin Sodium 25,000 UNIT Q24H 12/16 1445 AC 12/16 (Porcine) IV 1639 Sodium Chloride 500 ML Ipratropium [place] 2.5 ML EVERY 4 HRS/AWAKE 12/14 1200 AC 12/17 INH 0806 Losartan Potassium 100 MG DAILY 12/13 1000 AC 12/16 PO 1044 Meropenem 1 GM Q8 12/13 1400 AC 12/17 IV 0659 Metoprolol Tartrate 25 MG BID 12/13 2200 AC 12/16 PO 2207 Mirtazapine 15 MG QPM 12/15 2200 AC 12/16 PO 2205 Morphine Sulfate 2 MG DAILY NEEDED PRN 12/15 0945 AC IV Omeprazole 20 MG DAILY AC 12/14 0700 AC 12/17 PO 0659 Ondansetron HCl 4 MG Q8P PRN 12/12 171 AC IV Oxycodone/ 1 TAB Q4P PRN 12/12 171 AC 12/16 Acetaminophen PO 2343 Oxycodone/ 2 TAB Q4P PRN 12/12 171 AC 12/15 Acetaminophen PO 2200 Vital Signs & I&O Last 24 Hrs of Vitals and I&O: Vital Signs Date Time Temp Pulse Resp B/P B/P Pulse O2 O2 Flow FiO2 Mean Ox Delivery Rate 12/17 0828 94 Nasal 4.0L Cannula 12/17 0800 97.1 82 15 140/64 95 Nasal 4.0L Cannula 12/17 0800 89 Nasal 5.5L Cannula 12/17 0419 94 Nasal 4.0L Cannula 12/17 0000 96 Nasal 4.0L Cannula 12/17 0000 97.0 86 22 158/95 96 Nasal 4.0L Cannula 12/16 2207 93 128/47 12/16 2000 91 Nasal 4.0L Cannula 12/16 1654 93 Nasal 3.0L Cannula 12/16 1600 97.4 109 20 148/70 92 Nasal 3.0L Cannula 12/16 1600 91 Nasal 3.0L Cannula 12/16 1419 98.0 89 20 110/80 94 Nasal 1.5L Cannula 12/16 1044 98.2 106 160/100 12/16 1042 98.2 106 160/100 Intake & Output 12/17 1600 12/17 0800 12/17 0000 Intake Total 341 592 Output Total 870 2600 Intake, IV 241 202 Intake, Oral 100 390 Output, Urine 870 2600 Physical Exam General Appearance: awake, comfortable, thin, chronically ill Head: atraumatic Neck: supple Respiratory: severely diminished breath sounds with basilar crackles Cardiovascular: regular rate/rhythm (heart sounds distant) Gastrointestinal: normal bowel sounds, soft, non-tender Extremities: no edema, right lower extremity bandages in place Skin: warm/dry Results Last 24 Hrs of Lab Results: Laboratory Tests 12/17/16 0700: Anion Gap 7, Estimated GFR > 60, Glucose 85, Calcium 9.0, Phosphorus 3.7, Magnesium 1.9, Total Bilirubin 0.9, AST 18, ALT 30, Albumin 2.5 L, APTT 105 *H, CBC w Diff NO MAN DIFF REQ, RBC 4.11 L, MCV 95.5, MCH 30.8, RDW 15.0 H, MPV 8.5, Gran % 71.7, Lymphocytes % 13.6 L, Monocytes % 9.4 H, Eosinophils % 3.7, Basophils % 1.6, Absolute Granulocytes 6.9 H, Absolute Lymphocytes 1.3, Absolute Monocytes 0.9 H, Absolute Eosinophils 0.4, Absolute Basophils 0.2, PUBS MCHC 32.3 L 12/17/16 0600: APTT Cancelled 12/16/16 2230: APTT 40 H 12/16/16 1140: Anion Gap 8, Estimated GFR > 60, BUN/Creatinine Ratio 26.7 H, Calcium 8.9, Phosphorus 3.1, Magnesium 1.9, Troponin I < 0.01, CBC w Diff NO MAN DIFF REQ, RBC 3.96 L, MCV 95.0, MCH 31.3 H, RDW 14.7 H, MPV 8.0, Gran % 85.2 H, Lymphocytes % 5.4 L, Monocytes % 8.2, Eosinophils % 0.8, Basophils % 0.4, Absolute Granulocytes 9.0 H, Absolute Lymphocytes 0.6 L, Absolute Monocytes 0.9 H, Absolute Eosinophils 0.1, Absolute Basophils 0, PUBS MCHC 32.9 L 12/16/16 1110: pH 7.49 H, pCO2 36, pO2 66 L, HCO3 27, ABG O2 Sat (Measured) 92.0 L, P-50 ( Temp Corrected) N, Carboxyhemoglobin 1.6, O2 Concentration % 3L, Temperature 98.2, O2 Delivery Method N/C, Phlebotomy Draw Site LEFT BRACHIAL Impression/Plan Impression/Plan Impression/Plan: 1. Postoperative hypoxemia, most likely related to pulmonary edema and atelectasis. CT angiogram is negative for pulmonary embolism. 2. Status post right LE venogram for PAD, right lower extremity non-healing ulcer. 3. History of osteomyelitis, on meropenem. 4. Severe COPD. 5. Hypoxemic respiratory failure secondary to fluid overload with increased right greater than left effusions. Recommendations: * Cardiology consult requested. Follow up ECHO results. Continue with diuresis. * Monitor off oral anticoagulation, await therapeutic thoracentesis. * Continue meropenem for osteomyelitis, follow cultures. * Incentive spirometry to continue. * TRC for [id number] nebulizer treatments - albuterol and atrovent. * Bedside spirometry, to be done by respiratory. * Out of bed to chair. * Continue with 02, keep saturations greater than 92% at rest, and 88% on exertion. * Continue with IV Heparin for DVT prophylaxis. * Continue all supportive care. * Short-term rehabilitation suggested however the patient has 24-hour care at home. Code Status: Full Code
--- NOTE | 2016-12-17 09:57 | NUR ---
@0800-PT ALERT AND ORIENTED, FORGETFUL AT TIMES. BED ALRM IN PLACE. FOLLOWS COMMANDS. WEAKNESS TO L ARM DUE TO HX POLIO. DENIES NEED FOR PAIN MEDS AT THIS TIME. CONT ON [id number] INCREASED TO 6LNC DUE TO DESAT 85%. IV LASIX TO BE ADMINISTERED THIS AM. DIM BS TO BASES. IST AT BEDSIDE. AFIB HR 90S-110. EKG ORD FOR THIS AM. ECHO BEING DONE AT BEDSIDE AT THS TIME. REG DIET PROVIDED. WHEELER IN PLACE WITH ADEQUATE CLEAR YELLOW OUTPUT NOTED. DSG TO RLE INTACT. WILL PLACE NEW ADAPTIC DSG TO ULCER SITE THIS AM. ? BLISTER TO COCCYX-WILL EVAL THIS AM, CONT ON SPECIALTY MATTRESS. SANDRA PICC NOTED-DUAL LUMEN, +BLOOD RETRUN. WILL CLARIFY WITH SURG PA ON USE FOR BLOOD DRAWS. HEP GTT INFSUING. PTT DRAWN AT 0700 AND PENDING. CONT TO MONITOR. CALL FAY WITHIN REACH. @0920-PTT 105. HEP GTT PLACED ON HOLD FOR 1 HOUR AND DECREASED BY 2 UNITS PER PROTOCOL. NOW INFUSING AT 20UNITS/KG/HR OR 28ML/HR. NEXT PTT ENT FOR 1620. CALL FAY WITHIN REACH.
--- NOTE | 2016-12-17 10:05 | PN- Resident CRCU ---
Subjective HPI/CRCU Issues: Follow-up for: -Postoperative hypoxemia, PE was ruled out -PAD S/P right LE venogram -Right lower extremity non-healing ulcer -History of osteomyelitis, on meropenem -Severe COPD -Hypoxemic respiratory failure status plueral effusion Patient was seen and examined this morning, she is lying comfortably in bed with nasal cannula 5.5 L saturating 94%, alert oriented 3, patient denied any chest pain, palpitation, diaphoresis. Denied any abdominal pain, nausea or vomiting. She is scheduled for thoracocentesis tomorrow, discontinue Ellequis today. Patient is on IV heparin. 24 Hour Events: Temperature 98.5, MAXIMUM TEMPERATURE 98.5 Heart rate lowest 75, highest 106 atrial fibrillation Blood pressure lowest 111/57, highest 175/92 Respiratory rate 18 13 L oxygen saturating 94% Intake 833, output 3470 Objective Vital Signs & I&O Last 8 Hrs of Vitals and I&O: 11 Exam General Appearance: no apparent distress, alert Head: atraumatic, normal appearance Ears, Nose, Throat: normal pharynx, normal ENT inspection Neck: normal inspection, supple, full range of motion Respiratory: decreased breath sounds Cardiovascular: irregularly irregular Gastrointestinal: normal bowel sounds, soft, non-tender, no organomegaly Extremities: normal inspection, normal capillary refill, normal range of motion, no edema, right leg wrapped in clean bandage after vascular procedure yesterday Cranial Nerves: normal hearing, normal speech, PERRL Current Medications: Current Medications Sig/Chris Start time Last Medication Dose Route Stop Time Status Admin Acetaminophen 650 MG .STK-MED ONE 12/17 1999 DC PO 12/16 2000 Acetaminophen 650 MG Q6PRN PRN 12/12 1715 AC 12/16 PO 2002 Albuterol Sulfate 3 ML EVERY 4 HRS/AWAKE 12/14 1200 AC 12/17 INH 1145 Atorvastatin Calcium 20 MG 1700 12/13 1700 AC 12/16 PO 1854 Docusate Sodium 100 MG DAILY NEEDED PRN 12/12 1715 AC PO Escitalopram Oxalate 10 MG DAILY 12/13 1000 AC 12/17 PO 1112 Furosemide 40 MG 7:30 AM, & 4:30 PM 12/17 1630 AC IV Furosemide 40 MG DAILY 12/17 1000 DC 12/17 IV 0923 Furosemide 40 MG ONCE ONE 12/16 2100 CAN IV 12/16 210 Gabapentin 300 MG DAILY 12/13 1000 AC 12/17 PO 1111 Heparin Sodium 5,000 UNIT .STK-MED ONE 12/17 0107 DC (Porcine) IV 12/17 0108 Heparin Sodium 4,425 UNIT BOLUS ONE 12/17 0045 DC 12/17 (Porcine) IV 12/17 0046 0110 Heparin Sodium 25,000 UNIT Q24H 12/16 1445 AC 12/17 (Porcine) IV 1443 Sodium Chloride 500 ML Ipratropium [place] 2.5 ML EVERY 4 HRS/AWAKE 12/14 1200 AC 12/17 INH 1145 Losartan Potassium 100 MG DAILY 12/13 1000 AC 12/16 PO 1044 Meropenem 1 GM Q8 12/13 1400 AC 12/17 IV 1443 Metoprolol Tartrate 25 MG BID 12/13 2200 AC 12/17 PO 1112 Mirtazapine 15 MG QPM 12/15 2200 AC 12/16 PO 2205 Morphine Sulfate 2 MG DAILY NEEDED PRN 12/15 0945 AC IV Omeprazole 20 MG DAILY AC 12/14 0700 AC 12/17 PO 0659 Ondansetron HCl 4 MG Q8P PRN 12/12 1715 AC IV Oxycodone/ 1 TAB Q4P PRN 12/12 1715 AC 12/17 Acetaminophen PO 1203 Oxycodone/ 2 TAB Q4P PRN 12/12 1715 AC 12/15 Acetaminophen PO 2200 Impression/Plan Impression/Problem List Impression: 80-year-old lady who is an every day smoker with pmh of HTN, HLD, A.fib on Eliquis, severe PAD s/p femoral bypass in January of 2014, venous stasis ulcer, TIA , CVA, polio, was admitted for postoperative hypoxemia following an elective Rt. lower extremity venogram for Rt. leg PAD on 12/12/16 likely from pleural effusions and bibasilar atelectasis. Respiratory: -Post operative hypoxemia likely secondary to pleural effusion (Rt > Lt) and bibasilar atelectasis: * Continue oxygen support to keep O2> 92%. PE was ruled out by CTA. * US-guided thoracentesis is scheduled on Sunday (12/18). * Continue IV heparin anticipating thoracentesis and hold eliquis. * IV lasix 40mg twice a day. * Cardiology consultation was obtained, thanks for recommendation. * Continue incentive spirometry. - Severe COPD/emphysema: current every-day smoker * Continue [facility] for [id number] nebulizer treatments (albuterol/atrovent) * Continue oxygen support Infectious Diseases: - Chronic ulcer on right pretibial area: continued on IV meropenem, patient has been on IV meropenem for the past week. Cardiovascular: - A.fib: Continue IV heparin anticipating thoracentesis. Rate control with lopressor 25mg bid. - HTN: Well controlled, continue lopressor 25mg bid, cozaar 100mg daily - HLD: c/w lipitor 20mg daily Hematology: - on anticoagulation: with IV heparin for A.fib, check PTT per protocol Metabolic: - Stable Alimentary: - Heart healthy diet, nothing by mouth at midnight for thoracocentesis Neurological: - history of CVA: aspirin was held with IV heparin. Continue lipitor. 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 Pleural effusion 2. Postoperative hypoxemia 3. PVD (peripheral vascular disease) 4. COPD (chronic obstructive pulmonary disease) with emphysema Pain Ratin Tomorrow's Labs & Rationales: CBC, ICU bundle Plan DVT/Prophylaxis: pharmacological Code Status: Full Code
[2016-12-17 16:00] VITALS: BP 106/76
[2016-12-17 17:12] LABS: PTT 60 SEC (25-37)
--- NOTE | 2016-12-17 17:33 | NUR ---
@1600-PT MEDICATED WITH 2ND DOSE OF IV LASIX 40MG ORD. REPEAT PTT DRAWN AT THIS TIME. HEP GTT CONT TO INFUSE. PT COMFORTABLE AT THIS TIME. DSG CHANGED TO RLE EARLIER THIS AFTERNOON-ELEVATED ON PILLOW. DSG CDI. CALL FAY WITHIN REACH.
--- NOTE | 2016-12-17 20:43 | NUR ---
PT A/O CLAY TO COMMAND DENIES PAIN AT THIS TIME NEB RX BY RT O2 VIA NC AT 4L O2 SAT 94% NO C/O DYSPNEA. LEG MARJ D/I.
[2016-12-18 00:19] VITALS: BP 114/69
[2016-12-18 00:30] LABS: PTT 73 SEC (25-37)
[2016-12-18 05:10] LABS: ABSOLUTE BASOPHIL COUNT 0.1 /CUMM (0.0-0.2); ABSOLUTE EOSINOPHIL COUNT 0.2 /CUMM (0.0-0.7); ABSOLUTE GRANULOCYTE CT 7.6 /CUMM (1.4-6.5); ABSOLUTE LYMPH COUNT 1.4 /CUMM (1.2-3.4); ABSOLUTE MONOCYTE COUNT 0.9 /CUMM (0.10-0.60); BASOPHIL % 0.7 % (0.0-2.0); EOSINOPHIL % 2.3 % (0-5); GRANULOCYTE % 74.1 % (42.2-75.2); HEMATOCRIT 37.8 % (37-47); MEAN CORPUSCULAR HGB 31.1 PG (27.0-31.0); MEAN CORPUSCULAR HGB CONC 32.8 G/DL (33.0-37.0); MEAN CORPUSCULAR VOLUME 94.8 FL (81.0-99.0); MEAN PLATELET VOLUME 8.2 FL (7.4-10.4); PLATELET COUNT 472 /CUMM (130-400); RBC DISTRIBUTION WIDTH 14.5 % (11.5-14.5); RED BLOOD CELL CT 3.98 /CUMM (4.20-5.40); WHITE BLOOD CELL COUNT 10.3 /CUMM (4.8-10.8)
[2016-12-18 05:20] LABS: PT 15.1 SEC (9.4-12.5)
[2016-12-18 05:22] LABS: PTT 102 SEC (25-37)
--- NOTE | 2016-12-18 05:55 | PN- Vascular Surgery ---
Subjective Subjective: The patient was seen this morning. She denies any current chest pain, palpitations, or difficulty breathing. There are no issues overnight per nursing and she has been diuresing adequately with the aid of IV Lasix. Objective Vital Signs and I&Os Vital Signs Date Time Temp Pulse Resp B/P B/P Pulse O2 O2 Flow FiO2 Mean Ox Delivery Rate 12/18 0432 98 Nasal 2.5L Cannula 12/18 0019 100 Nasal 4.0L Cannula 12/18 0019 97.1 90 14 114/69 100 Nasal 4.0L Cannula 12/17 2204 106 144/75 12/17 1943 96 Nasal 4.0L Cannula 12/17 1600 98.3 82 16 106/76 93 Nasal 5.0L Cannula 12/17 1600 94 Nasal 4.0L Cannula 12/17 1442 94 Nasal 4.0L Cannula 12/17 1200 94 Nasal 6.0L Cannula 12/17 1112 95 141/77 12/17 0828 94 Nasal 4.0L Cannula 12/17 0800 97.1 82 15 140/64 95 Nasal 4.0L Cannula 12/17 0800 89 Nasal 5.5L Cannula Intake & Output 12/18 0800 12/18 0000 14 1600 14 0800 14 0000 13 1600 Intake Total 480.8 723 341 592 520 Output Total 2620 2450 870 2600 400 [facility] [place] -[phone] [phone] -[phone] Intake, IV 240.8 163 241 202 40 Intake, Oral 240 560 100 390 480 Number 0 0 Bowel Movements Output, Urine 2620 2450 870 2600 400 Physical Exam: Gen.: Sleepy but easily arousable and in no obvious distress Skin: Warm and dry Extremities: Bilateral lower extremities are warm without calf tenderness or significant edema. Right lower extremity is warm with positive capillary refill. There is a weak dopplerable PT pulse. Surgical dressing around the pretibial and ankle area is clean, dry, and intact. Assessment/Plan Assessment/Plan Assessment: 80-year-old female status post right lower extremity angiogram and stenting complicated by postoperative respiratory issues. The upper leg shows signs of adequate perfusion. Plan: Continue IV antibiotics for ostial myelitis and chronic nonhealing right lower extremity wound The patient's eliquis is being held and she is on a heparin drip because she is going for a thoracentesis later today by IR Total respiratory care with [id number] nebulizer treatments, incentive spirometry, and pulmonary toilet GI and DVT prophylaxis Out of bed to chair Strict I's and O's and keep Walls catheter until patient is finished diuresing Follow-up pulmonary critical care and cardiology consultation recommendations Consider transfer to pulmonary service given that the patient's current issues are predominantly pulmonary in nature Core Measures/Miscellaneous Walls Catheter Date In: 12/16/16 Venous Thromboembolism VTE Risk Factors: Age > 40, Surgery VTE Contraindications: No Contraindications No [facility] VTE Prophylaxis D/T: Peripheral Vascular Dx, Surgical Procedure LE VTE Diagnosis: No VTE Type: NONE VTE Confirmed by (Test): NONE Beta Jerry Is Beta Jerry a Home Med? Yes If Yes, Was This Ordered Today? Yes Antibiotics Is Patient on Antibiotics? Yes If Yes: infection
--- NOTE | 2016-12-18 07:08 | PN- Resident CRCU ---
Subjective HPI/CRCU Issues: Follow-up for: -Postoperative hypoxemia, PE was ruled out -PAD S/P right LE venogram -Right lower extremity non-healing ulcer -History of osteomyelitis, on meropenem -Severe COPD -Hypoxemic respiratory failure status plueral effusion, plan for thoracocentesis right side diagnostic and therapeutic Patient was seen and examined this morning, she is alert oriented 3, denied shortness of breath, cough, fever or chills. Patient is nothing by mouth since midnight for right sided thoracocentesis diagnostic and therapeutic. INR was contacted this morning to confirm the order. 24 Hour Events: Temperature 90.8, MAXIMUM TEMPERATURE 98.3 Pulse was 80, highest 104 A. fib Blood pressure lowest 86/63, highest 162/84 Respiratory 12, 4 L nasal cannula saturating 92% Intake 1500, output 5750, patient received 2 doses of 40 mg Lasix IV yesterday Objective Vital Signs & I&O Last 8 Hrs of Vitals and I&O: 111 Exam General Appearance: no apparent distress, alert, awake Head: atraumatic, normal appearance Ears, Nose, Throat: normal pharynx, normal ENT inspection Neck: normal inspection, supple, full range of motion Respiratory: chest non-tender, decreased breath sounds, crackles Cardiovascular: irregularly irregular Gastrointestinal: normal bowel sounds, soft, non-tender Extremities: normal inspection, normal capillary refill, normal range of motion, no edema, right lower extremity wrapped in clean bandages Cranial Nerves: normal hearing, normal speech, PERRL Skin: intact, normal color, warm/dry Current Medications: Current Medications Sig/Chris Start time Last Medication Dose Route Stop Time Status Admin Acetaminophen 650 MG Q6PRN PRN 12/12 1715 AC 12/16 PO 2001 Albuterol Sulfate 3 ML EVERY 4 HRS/AWAKE 12/14 1200 AC 12/18 INH 0820 Atorvastatin Calcium 20 MG 1700 12/13 1700 AC 12/17 PO 1616 Docusate Sodium 100 MG DAILY NEEDED PRN 12/12 1715 AC PO Escitalopram Oxalate 10 MG DAILY 12/13 1000 AC 12/18 PO 1049 Furosemide 40 MG 7:30 AM, & 4:30 PM 12/17 1630 AC 12/18 IV 0850 Furosemide 40 MG DAILY 12/17 1000 DC 12/17 IV 0923 Gabapentin 300 MG DAILY 12/13 1000 AC 12/18 PO 1049 Heparin Sodium 25,000 UNIT Q24H 12/18 1030 AC (Porcine) IV Sodium Chloride 500 ML Heparin Sodium 25,000 UNIT Q24H 12/16 1445 DC 12/17 (Porcine) IV 12/18 1028 1443 Sodium Chloride 500 ML Ipratropium [place] 2.5 ML EVERY 4 HRS/AWAKE 12/14 1200 AC 12/18 INH 0820 Losartan Potassium 100 MG DAILY 12/13 1000 AC 12/16 PO 1044 Meropenem 1 GM Q8 12/13 1400 AC 12/18 IV 0600 Metoprolol Tartrate 25 MG BID 12/13 2200 AC 12/18 PO 1049 Mirtazapine 15 MG QPM 12/15 2200 AC 12/17 PO 2204 Morphine Sulfate 2 MG DAILY NEEDED PRN 12/15 0945 AC IV Omeprazole 20 MG DAILY AC 12/14 0700 AC 12/18 PO 0603 Ondansetron HCl 4 MG Q8P PRN 12/12 1715 AC IV Oxycodone/ 1 TAB Q4P PRN 12/12 1715 AC 12/17 Acetaminophen PO 2207 Oxycodone/ 2 TAB Q4P PRN 12/12 1715 AC 12/15 Acetaminophen PO 2200 Patient Medication 1 UNIT ONE NR 12/18 1045 AC Teaching ED 12/18 1645 Polyethylene Glycol 17 GM DAILY PRN 12/18 0945 AC PO Senna 187 MG AT BEDTIME 12/18 2200 AC PO Impression/Plan Impression/Problem List Impression: 80-year-old lady who is an every day smoker with pmh of HTN, HLD, A.fib on Eliquis, severe PAD s/p femoral bypass in January of 2014, venous stasis ulcer, TIA , CVA, polio, was admitted for postoperative hypoxemia following an elective Rt. lower extremity venogram for Rt. leg PAD on 12/12/16 likely from pleural effusions and bibasilar atelectasis. Respiratory: -Post operative hypoxemia likely secondary to pleural effusion (Rt > Lt) and bibasilar atelectasis: -Severe COPD/emphysema: current every-day smoker: * Continue oxygen support to keep O2> 92% on rest, O2> 88% on exertion * CTA roled out PE * US-guided thoracentesis will be rescheduled to tomorrow 12/19 as patient needs to be 48 hours off eliquis (last administrated on 12/16 at 11am), body fluid Orders were placed * Continue IV heparin anticipating thoracentesis and hold eliquis, IV heparin to be held 2 hours prior to scheduled thoracentesis * IV lasix 40mg twice a day, continue negative fluid balance * Cardiology consultation was obtained, thanks for recommendation * Continue incentive spirometry, TRC (albuterol and atrovent) Infectious Diseases: - Chronic ulcer on right pretibial area * Osteomyelitis, continue IV meropenem * Status post right angiogram on 12/12/16, transferred to ICU on 12/16 for worsening hypoxemia after postprocedure desaturation to 83% on room air * Status post popliteal femoral bypass in January 2014 * Surveillance Upper respiratory culture negative * Surveillance GI rectal culture positive for vancomycin-resistant enterococcus Cardiovascular: * A.fib: Continue IV heparin anticipating thoracentesis. Rate control with lopressor 25mg bid * IV heparin to be held prior to thoracentesis tomorrow, recommendation to restart as soon as possible once cleared by IR * HTN: Well controlled, continue lopressor 25mg bid, cozaar 100mg daily * HLD: c/w lipitor 20mg daily Metabolic: * Stable Alimentary: * Heart healthy diet, nothing by mouth at midnight for thoracocentesis * Nutritional consultation was placed Neurological: * History of CVA: aspirin was held with IV heparin. 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 COPD (chronic obstructive pulmonary disease) with emphysema 2. Pleural effusion 3. Postoperative hypoxemia 4. PVD (peripheral vascular disease) Pain Ratin Tomorrow's Labs & Rationales: CBC, ICU bundle Plan DVT/Prophylaxis: pharmacological Code Status: Full Code
--- NOTE | 2016-12-18 07:34 | PN- CRCU ---
Subjective HPI/Critical Care Issues: The patient is awake and alert. She had oxygen desaturation overnight now she is requiring 4 L nasal cannula. She remains on IV heparin. The patient is not offering any specific complaints. Objective Current Medications: Current Medications Sig/Chris Start time Last Medication Dose Route Stop Time Status Admin Acetaminophen 650 MG Q6PRN PRN 12/12 1715 AC 12/16 PO 2002 Albuterol Sulfate 3 ML EVERY 4 HRS/AWAKE 12/14 1200 AC 12/17 INH 1935 Atorvastatin Calcium 20 MG 1700 12/13 1700 AC 12/17 PO 1616 Docusate Sodium 100 MG DAILY NEEDED PRN 12/12 1715 AC PO Escitalopram Oxalate 10 MG DAILY 12/13 1000 AC 12/17 PO 1112 Furosemide 40 MG 7:30 AM, & 4:30 PM 12/17 1630 AC 12/17 IV 1616 Furosemide 40 MG DAILY 12/17 1000 DC 12/17 IV 0923 Gabapentin 300 MG DAILY 12/13 1000 AC 12/17 PO 1111 Heparin Sodium 25,000 UNIT Q24H 12/16 1445 AC 12/17 (Porcine) IV 1443 Sodium Chloride 500 ML Ipratropium [place] 2.5 ML EVERY 4 HRS/AWAKE 12/14 1200 AC 12/17 INH 1935 Losartan Potassium 100 MG DAILY 12/13 1000 AC 12/16 PO 1044 Meropenem 1 GM Q8 12/13 1400 AC 12/18 IV 0600 Metoprolol Tartrate 25 MG BID 12/13 2200 AC 12/17 PO 2204 Mirtazapine 15 MG QPM 12/15 2200 AC 12/17 PO 2204 Morphine Sulfate 2 MG DAILY NEEDED PRN 12/15 0945 AC IV Omeprazole 20 MG DAILY AC 12/14 0700 AC 12/18 PO 0603 Ondansetron HCl 4 MG Q8P PRN 12/12 1715 AC IV Oxycodone/ 1 TAB Q4P PRN 12/12 171 AC 12/17 Acetaminophen PO 2207 Oxycodone/ 2 TAB Q4P PRN 12/12 171 AC 12/15 Acetaminophen PO 2200 Vital Signs & I&O Last 24 Hrs of Vitals and I&O: Vital Signs Date Time Temp Pulse Resp B/P B/P Pulse O2 O2 Flow FiO2 Mean Ox Delivery Rate 12/18 0432 98 Nasal 2.5L Cannula 12/18 0019 100 Nasal 4.0L Cannula 12/18 0019 97.1 90 14 114/69 100 Nasal 4.0L Cannula 12/17 2204 106 144/75 12/17 1943 96 Nasal 4.0L Cannula 12/17 1600 98.3 82 16 106/76 93 Nasal 5.0L Cannula 12/17 1600 94 Nasal 4.0L Cannula 12/17 1442 94 Nasal 4.0L Cannula 12/17 1200 94 Nasal 6.0L Cannula 12/17 1112 95 141/77 12/17 0828 94 Nasal 4.0L Cannula 12/17 0800 97.1 82 15 140/64 95 Nasal 4.0L Cannula 12/17 0800 89 Nasal 5.5L Cannula Intake & Output 12/18 0800 12/18 0000 12/17 1600 Intake Total 480.8 723 Output Total 2620 2450 Balance -2139.2 -1727 Intake, IV 240.8 163 Intake, Oral 240 560 Number 0 Bowel Movements Output, Urine 2620 2450 Physical Exam General Appearance: awake, comfortable, thin, chronically ill Head: atraumatic Neck: supple Respiratory: severely diminished breath sounds with basilar crackles Cardiovascular: regular rate/rhythm (heart sounds distant) Gastrointestinal: normal bowel sounds, soft, non-tender Extremities: no edema, right lower extremity bandages in place Skin: warm/dry Results Last 24 Hrs of Lab Results: Laboratory Tests 12/18/16 0430: Anion Gap 5, Estimated GFR > 60, Glucose 95, Calcium 8.8, Phosphorus 3.6, Magnesium 1.9, Total Bilirubin 1.1, AST 13 L, ALT 34, Albumin 2.4 L, PT 15.1 H, INR 1.44 H, APTT 102 *H, CBC w Diff NO MAN DIFF REQ, RBC 3.98 L, MCV 94.8, MCH 31.1 H, RDW 14.5, MPV 8.2, Gran % 74.1, Lymphocytes % 14.0 L, Monocytes % 8.9, Eosinophils % 2.3, Basophils % 0.7, Absolute Granulocytes 7.6 H, Absolute Lymphocytes 1.4, Absolute Monocytes 0.9 H, Absolute Eosinophils 0.2, Absolute Basophils 0.1, PUBS MCHC 32.8 L 12/17/16 2350: APTT 73 H 12/17/16 1628: APTT 60 H Impression/Plan Impression/Plan Impression/Plan: 1. Postoperative hypoxemia, secondary to pulmonary edema, bilateral effusions and atelectasis. 2. Status post right LE venogram for PAD, right lower extremity non-healing ulcer. 3. History of osteomyelitis, on meropenem. 4. Severe COPD. Recommendations: * Continue with Lasix, negative fluid balance. * Await diagnostic and therapeutic thoracentesis. * Continue meropenem for osteomyelitis, follow cultures. * Incentive spirometry to continue. * TRC for [id number] nebulizer treatments - albuterol and atrovent. * Bedside spirometry, to be done by respiratory. * Out of bed to chair. * Continue with 02, keep saturations greater than 92% at rest, and 88% on exertion. * Continue with IV Heparin for DVT prophylaxis. * Continue all supportive care. Code Status: Full Code
[2016-12-18 08:00] VITALS: BP 129/75
--- NOTE | 2016-12-18 10:21 | NUR ---
AT 1000: this nurse spoke with md nunes at bedside, for right dressing change adaptic, fluffit wrapped with kerlix, this daily right lower leg change, changed by md nunes. this nurse spoke with autumn ch, patient will be npo after midnight for procedure 12/19/16. patient to continue heparin drip until procedure 12/19/16, resume diet and po meds will be given today. this nurse updated patient with plan of care. patient verbally understood plan of care. call maciel within reach.
--- NOTE | 2016-12-18 10:54 | PN- Vascular Surgery ---
Surgical Brief Attending Note Brief Attending Note: VASCULAR ATTENDING NOTE: Pt. now POD #6 s/p LLE angio/stent now with pleural effusion abd hypoxia. Pt. awaiting pleural tap by IR which is delayed bc of pts. anticoag. She denies major leg pain. No rest pain. PE: AF/VSS Ext: Foot warm, +PT signal. A/P Awaiting IR pleural tap Cont. heparin drip PT consult OOB chair Restart Eliquis after tap when stable from pulm./CCM
--- NOTE | 2016-12-18 11:53 | PN- Cardiology ---
Subjective Subjective: Shortness of breath improving, however she is still requiring significant oxygen. No chest pain. No palpitations. No diaphoresis. No dizziness. Objective Vital Signs and I&Os Vital Signs Date Time Temp Pulse Resp B/P B/P Pulse O2 O2 Flow FiO2 Mean Ox Delivery Rate 12/18 1049 93 117/70 12/18 0824 95 Nasal 4.0L Cannula 12/18 0800 96 Nasal 4.0L Cannula 12/18 0800 98.4 88 50 129/75 96 Nasal 4.0L Cannula 12/18 0432 98 Nasal 2.5L Cannula 12/18 0019 100 Nasal 4.0L Cannula 12/18 0019 97.1 90 14 114/69 100 Nasal 4.0L Cannula 12/17 2204 106 144/75 12/17 1943 96 Nasal 4.0L Cannula 12/17 1600 98.3 82 16 106/76 93 Nasal 5.0L Cannula 12/17 1600 94 Nasal 4.0L Cannula 12/17 1442 94 Nasal 4.0L Cannula 12/17 1200 94 Nasal 6.0L Cannula Intake & Output 12/18 1600 12/18 0800 12/18 0000 12/17 1600 12/17 0800 12/17 0000 Intake Total 296 480.8 723 341 592 Output Total 680 2620 2450 870 2600 [facility] -384 -2139.2 -1727 -529 -2008 Intake, IV 246 240.8 163 241 202 Intake, Oral 50 240 560 100 390 Number 0 Bowel Movements Output, Urine 680 2620 2450 870 2600 Physical Exam: Gen: NAD HEENT: normal Lungs: Scattered rales bilaterally, normal resp. effort Heart: RRR, S1, S2, no murmurs Abdomen: Soft, nontender, no masses Extremities: No clubbing, cyanosis, or edema. Neuro: Alert and oriented x 3, cranial nerves intact Current Medications: Current Medications Sig/Chris Start time Last Medication Dose Route Stop Time Status Admin Acetaminophen 650 MG Q6PRN PRN 12/12 1715 AC 12/16 PO 2001 Albuterol Sulfate 3 ML EVERY 4 HRS/AWAKE 12/14 1200 AC 12/18 INH 0820 Atorvastatin Calcium 20 MG 1700 12/13 1700 AC 12/17 PO 1616 Docusate Sodium 100 MG DAILY NEEDED PRN 12/12 1715 AC PO Escitalopram Oxalate 10 MG DAILY 12/13 1000 AC 12/18 PO 1049 Furosemide 40 MG 7:30 AM, & 4:30 PM 12/17 1630 AC 12/18 IV 0850 Furosemide 40 MG DAILY 12/17 1000 DC 12/17 IV 0923 Gabapentin 300 MG DAILY 12/13 1000 AC 12/18 PO 1049 Heparin Sodium 25,000 UNIT Q24H 12/18 1030 AC (Porcine) IV Sodium Chloride 500 ML Heparin Sodium 25,000 UNIT Q24H 12/16 1445 DC 12/17 (Porcine) IV 12/18 1028 1443 Sodium Chloride 500 ML Ipratropium [place] 2.5 ML EVERY 4 HRS/AWAKE 12/14 1200 AC 12/18 INH 0820 Losartan Potassium 100 MG DAILY 12/13 1000 AC 12/16 PO 1044 Meropenem 1 GM Q8 12/13 1400 AC 12/18 IV 0600 Metoprolol Tartrate 25 MG BID 12/13 2200 AC 12/18 PO 1049 Mirtazapine 15 MG QPM 12/15 2200 AC 12/17 PO 2204 Morphine Sulfate 2 MG DAILY NEEDED PRN 12/15 0945 AC IV Omeprazole 20 MG DAILY AC 12/14 0700 AC 12/18 PO 0603 Ondansetron HCl 4 MG Q8P PRN 12/12 1715 AC IV Oxycodone/ 1 TAB Q4P PRN 12/12 1715 AC 12/17 Acetaminophen PO 2207 Oxycodone/ 2 TAB Q4P PRN 12/12 1715 AC 12/15 Acetaminophen PO 2200 Patient Medication 1 UNIT ONE NR 12/18 1045 AC Teaching ED 12/18 1645 Polyethylene Glycol 17 GM DAILY PRN 12/18 0945 PO Senna 187 MG AT BEDTIME 12/18 2200 AC PO Results Last 48 Hrs of Labs/Mics: Laboratory Tests 12/18/16 0800: Fluid WBC Cancelled, Fld Total RBCs Counted Cancelled 12/18/16 0800: Fluid Albumin Cancelled 12/18/16 0430: Anion Gap 5, Estimated GFR > 60, Glucose 95, Calcium 8.8, Phosphorus 3.6, Magnesium 1.9, Total Bilirubin 1.1, AST 13 L, ALT 34, Lactate Dehydrogenase 397 , Total Protein 4.8 L, Albumin 2.4 L, PT 15.1 H, INR 1.44 H, APTT 102 *H, CBC w Diff NO MAN DIFF REQ, RBC 3.98 L, MCV 94.8, MCH 31.1 H, RDW 14.5, MPV 8.2, Gran % 74.1, Lymphocytes % 14.0 L, Monocytes % 8.9, Eosinophils % 2.3, Basophils % 0.7, Absolute Granulocytes 7.6 H, Absolute Lymphocytes 1.4, Absolute Monocytes 0.9 H, Absolute Eosinophils 0.2, Absolute Basophils 0.1, PUBS MCHC 32.8 L 12/17/16 2350: APTT 73 H 12/17/16 1628: APTT 60 H 12/17/16 0700: Anion Gap 7, Estimated GFR > 60, Glucose 85, Calcium 9.0, Phosphorus 3.7, Magnesium 1.9, Total Bilirubin 0.9, AST 18, ALT 30, Albumin 2.5 L, APTT 105 *H, CBC w Diff NO MAN DIFF REQ, RBC 4.11 L, MCV 95.5, MCH 30.8, RDW 15.0 H, MPV 8.5, Gran % 71.7, Lymphocytes % 13.6 L, Monocytes % 9.4 H, Eosinophils % 3.7, Basophils % 1.6, Absolute Granulocytes 6.9 H, Absolute Lymphocytes 1.3, Absolute Monocytes 0.9 H, Absolute Eosinophils 0.4, Absolute Basophils 0.2, PUBS MCHC 32.3 L 12/17/16 0600: APTT Cancelled 12/16/16 2230: APTT 40 H Microbiology 12/16 1600 UPPER RESP: Surveillance Culture - COMP 12/16 1600 GI: Surveillance Culture - COMP VANC RESIST ENTEROCOCCUS Assessment/Plan Assessment/Plan Assessment: 1. Atrial fibrillation 2. Acute diastolic heart failure status post vascular procedure Plan: * Continue IV Lasix * Thoracentesis planned for tomorrow * Warfarin on hold for thoracentesis * Continue IV heparin Continue telemetry? Yes
[2016-12-18 13:41] LABS: PTT 62 SEC (25-37)
[2016-12-18 16:00] VITALS: BP 90/60
--- NOTE | 2016-12-18 17:58 | NUR ---
SOME BLOODY DRAINAGE NOTED TO RIGHT LEG DRESSING, PATIENT REFUSING TO ALLOW NURSE TO CHANGE IT, SURGICAL PA AWARE. PATIENT IS ON HEPARIN GTT WILL WATCH FOR ANY EXCESSIVE BLEEDING FROM SITE.
--- NOTE | 2016-12-18 17:59 | NUR ---
VRE SWAB CAME BACK POSITIVE ON DAY SHIFT, CONTACT PRECAUTIONS IN PLACE. PATIENT ASKING LOTS OF QUESTIONS ABOUT VRE. EDUCATIONAL MATERIAL PROVIDED.
--- NOTE | 2016-12-18 19:56 | NUR ---
PT MANUAL BP AT THIS TIME 88/50, AFIB ON MONITOR RATE 90'S, NO C/O OF SOB OR DIZZINESS AT THIS TIME. NOTIFIED MD SANTILLAN. WILL HOLD NIGHTIME LOPRESSOR AND CONTINUE TO MONITOR.
--- NOTE | 2016-12-18 21:32 | NUR ---
@2100 REPEAT MANUAL BP 98/50. WILL CONTINUE TO MONITOR
[2016-12-19] VITALS: BP 110/60
--- NOTE | 2016-12-19 00:34 | NUR ---
PT ALERT AND ORIENTED. DENIES PAIN AT THIS TIME. AFIB, 80'S, MANUAL BP 110/60. SATURATION ON 4L 95%, LUNGS SOUND CLEAR. NPO AFER MN, FOR THORACENTESIS IN AM. PT AWARE. HEPARIN GTT TO BE CONTINUED UNTIL 0700 IN THE MORNING. WHEELER IN PLACE, ADEQUATE UO NOTED. RIGHT SANCHEZ DRESSING INTACT.
[2016-12-19 01:52] LABS: PTT > 120 SEC (25-37)
--- NOTE | 2016-12-19 03:24 | PN- Vascular Surgery ---
Subjective Subjective: denies pain, sob, cp. sleeping comfortably, awoke appropriately Objective Vital Signs and I&Os Vital Signs Date Time Temp Pulse Resp B/P B/P Pulse O2 O2 Flow FiO2 Mean Ox Delivery Rate 12/19 0000 05 Nasal 4.0L Cannula 12/19 0000 97.2 89 17 110/60 96 Nasal 4.0L Cannula 12/18 2000 94 Nasal 4.0L Cannula 12/18 1800 95 Nasal 4.0L Cannula 12/18 1600 Nasal 4.0L Cannula 12/18 1600 99.0 86 20 90/60 95 Nasal 4.0L Cannula 12/18 1552 Nasal 4.0L Cannula 12/18 1200 96 Nasal 4.0L Cannula 12/18 1049 93 117/70 12/18 0824 95 Nasal 4.0L Cannula 12/18 0800 96 Nasal 4.0L Cannula 12/18 0800 98.4 88 50 129/75 96 Nasal 4.0L Cannula 12/18 0432 98 Nasal 2.5L Cannula Intake & Output 12/19 0800 12/19 0000 12/18 1600 12/18 0800 12/18 0000 12/17 1600 Intake Total 926.7 704 296 480.8 723 Output Total 450 2300 680 2620 2450 Balance 476.7 -1596 -384 -2139.2 -1727 Intake, IV 206.7 224 246 240.8 163 Intake, Oral 720 480 50 240 560 Number 0 0 0 Bowel Movements Output, Stool 0 Output, Urine 450 2300 680 2620 2450 Patient 130 lb Weight Physical Exam: GEN: NAD CARD: s1s2 RRR PULM: no wheeze or rales anteriorly EXT: RLE PT signal, faint palp pulse, no DP appreciated. dressing cdi Assessment/Plan Assessment/Plan POD7 sp RLE angio/stent, in ICU with increased o2 requirements related to pulmonary edema, for thoracentesis today by IR, on hep gtt while eliquis held for procedure. Continue current care. NPO, hepgtt, throacentesis today, resume diet and ? eliquis following procedure. will dw attending Core Measures/Miscellaneous Walls Catheter Date In: 12/16/16 Venous Thromboembolism VTE Risk Factors: Age > 40, Surgery VTE Contraindications: No Contraindications No Mech VTE Prophylaxis D/T: Peripheral Vascular Dx, Surgical Procedure LE VTE Diagnosis: No VTE Type: NONE VTE Confirmed by (Test): NONE Beta Jerry Is Beta Jerry a Home Med? Yes If Yes, Was This Ordered Today? Yes Antibiotics Is Patient on Antibiotics? Yes If Yes: infection
[2016-12-19 05:15] LABS: ABSOLUTE BASOPHIL COUNT 0 /CUMM (0.0-0.2); ABSOLUTE EOSINOPHIL COUNT 0.2 /CUMM (0.0-0.7); ABSOLUTE GRANULOCYTE CT 7.2 /CUMM (1.4-6.5); ABSOLUTE LYMPH COUNT 1.5 /CUMM (1.2-3.4); ABSOLUTE MONOCYTE COUNT 0.8 /CUMM (0.10-0.60); BASOPHIL % 0.4 % (0.0-2.0); EOSINOPHIL % 1.8 % (0-5); GRANULOCYTE % 74.2 % (42.2-75.2); HEMATOCRIT 38.1 % (37-47); MEAN CORPUSCULAR HGB 31.2 PG (27.0-31.0); MEAN CORPUSCULAR HGB CONC 32.9 G/DL (33.0-37.0); MEAN PLATELET VOLUME 8.6 FL (7.4-10.4); PLATELET COUNT 511 /CUMM (130-400); RBC DISTRIBUTION WIDTH 14.9 % (11.5-14.5); RED BLOOD CELL CT 4.01 /CUMM (4.20-5.40); WHITE BLOOD CELL COUNT 9.7 /CUMM (4.8-10.8)
--- NOTE | 2016-12-19 07:13 | PN- Resident CRCU ---
Subjective HPI/CRCU Issues: Follow-up for: -Postoperative hypoxemia, PE was ruled out -PAD S/P right LE venogram -Right lower extremity non-healing ulcer -History of osteomyelitis, on meropenem -Severe COPD -Hypoxemic respiratory failure status plueral effusion, plan for thoracocentesis right side diagnostic and therapeutic Patient was seen and examined this morning, she is alert oriented 3, nothing by mouth for thoracentesis at 11 AM. Heparin drip was discontinued at 7 AM. Patient denied any chest pain, cough, fever, chills, abdominal pain, nausea or vomiting. Despite bowel regimen didn't have bowel movement yet. Patient is very sensitive to any touch of right leg because of the chronic ulcer wound. Reported difficulty to stand out of bed or work with physical therapist because of pain. 24 Hour Events: Temperature 97.4, MAXIMUM TEMPERATURE 99 Pulse lowest 79, highest 111 A. fib, blood pressure lowest 71/50, highest 168/80 Respiratory rate 18 on 4 L saturating 95% Objective Vital Signs & I&O Last 8 Hrs of Vitals and I&O: 11 Exam General Appearance: no apparent distress, alert, awake Head: atraumatic, normal appearance Ears, Nose, Throat: normal pharynx, normal ENT inspection Neck: normal inspection, supple, full range of motion Respiratory: decreased breath sounds, crackles Cardiovascular: irregularly irregular Gastrointestinal: normal bowel sounds, soft, non-tender Extremities: normal inspection, normal capillary refill, normal range of motion, no edema, right lower extremity extremely sensitive to touch, wrapped in clean bandage of chronic ulcer wound Cranial Nerves: normal hearing, normal speech, PERRL Current Medications: Current Medications Sig/Chris Start time Last Medication Dose Route Stop Time Status Admin Acetaminophen 650 MG Q6PRN PRN 12/12 1715 AC 12/16 PO 2001 Albuterol Sulfate 3 ML EVERY 4 HRS/AWAKE 12/14 1200 AC 12/19 INH 1247 Atorvastatin Calcium 20 MG 1700 12/13 1700 AC 12/18 PO 1558 Docusate Sodium 100 MG DAILY NEEDED PRN 12/12 1715 AC PO Escitalopram Oxalate 10 MG DAILY 12/13 1000 AC 12/19 PO 911 Furosemide 40 MG DAILY 12/20 1000 AC IV Furosemide 40 MG 7:30 AM, & 4:30 PM 12/17 1630 DC 12/19 IV 0757 Gabapentin 300 MG DAILY 12/13 1000 AC 12/19 PO 0912 Heparin Sodium 25,000 UNIT Q24H 12/19 1200 AC 12/19 (Porcine) IV 1215 Sodium Chloride 500 ML Heparin Sodium 25,000 UNIT Q24H 12/18 1030 DC 12/18 (Porcine) IV 12/19 0700 2355 Sodium Chloride 500 ML Ipratropium [place] 2.5 ML EVERY 4 HRS/AWAKE 12/14 1200 AC 12/19 INH 1247 Losartan Potassium 100 MG DAILY 12/13 1000 AC 12/16 PO 1044 Meropenem 1 GM Q8 12/13 1400 AC 12/19 IV 1352 Metoprolol Tartrate 25 MG BID 12/13 2200 AC 12/18 PO 1049 Mirtazapine 15 MG QPM 12/15 2200 AC 12/18 PO 2151 Morphine Sulfate 2 MG DAILY NEEDED PRN 12/15 0945 AC IV Omeprazole 20 MG DAILY AC 12/14 0700 AC 12/19 PO 0606 Ondansetron HCl 4 MG Q8P PRN 12/12 1715 AC IV Oxycodone/ 1 TAB Q4P PRN 12/12 1715 AC 12/19 Acetaminophen PO 1359 Oxycodone/ 2 TAB Q4P PRN 12/12 1715 AC 12/15 Acetaminophen PO 2200 Patient Medication 1 UNIT ONE NR 12/18 1045 [place] Teaching ED 12/18 1645 Polyethylene Glycol 17 GM DAILY PRN 12/18 0945 AC PO Senna 187 MG AT BEDTIME 12/18 2200 AC 12/18 PO 2151 Sodium Chloride 500 ML BOLUS ONE 12/19 1500 AC 12/19 IV 12/19 1559 1509 Sodium Chloride 500 ML BOLUS ONE 12/19 1200 DC 12/19 IV 12/19 1259 1215 Impression/Plan Impression/Problem List Impression: 80-year-old lady who is an every day smoker with pmh of HTN, HLD, A.fib on Eliquis, severe PAD s/p femoral bypass in January of 2014, venous stasis ulcer, TIA , CVA, polio, was admitted for postoperative hypoxemia following an elective Rt. lower extremity venogram for Rt. leg PAD on 12/12/16 likely from pleural effusions and bibasilar atelectasis. Respiratory: -Post operative hypoxemia likely secondary to pleural effusion (Rt > Lt) and bibasilar atelectasis: -Severe COPD/emphysema: current every-day smoker: * Continue oxygen support to keep O2> 92% on rest, O2> 88% on exertion * CTA roled out PE * US-guided thoracentesis was scheduled today, chest ultrasound at bedside didn' t reveal enough fluid for tap. Restart heparin drip and reassess tomorrow, if patient continues to have non tappable amount of fluid would resume eliquis * Continue incentive spirometry, TRC (albuterol and atrovent) Infectious Diseases: - Chronic ulcer on right pretibial area * Osteomyelitis, continue IV meropenem * Status post right angiogram on 12/12/16, transferred to ICU on 12/16 for worsening hypoxemia after postprocedure desaturation to 83% on room air * Status post popliteal femoral bypass in January 2014 * Surveillance Upper respiratory culture negative * Surveillance GI rectal culture positive for vancomycin-resistant enterococcus Cardiovascular: * Cardiology consultation was obtained, thanks for recommendation * A.fib: Continue IV heparin anticipating thoracentesis * IV heparin, will restart eliquis tomorrow morning if there is no further indication for thoracentesis * Patient was very lethargic this morning, low blood pressure 80/50, negative fluid balance by 2 L, I contacted Dr. Henry if there is possibility to decrease the Lasix dose, will decrease Lasix to 40 daily * Patient received 2 boluses of normal saline 500 mL, will continue monitor blood pressure * HTN: hold lopressor 25mg bid, cozaar 100mg daily for hypertension * HLD: c/w lipitor 20mg daily Metabolic: * Stable Alimentary: * Heart healthy diet, nothing by mouth at midnight for thoracocentesis * Nutritional consultation was placed Neurological: * History of CVA: aspirin was held with IV heparin. Continue lipitor * Depression: c/w remeron, lexapro Skin: * Chronic nonhealing ulcer of the right leg s/p right leg angiogram on 2016: Continue wound care (with Adaptic and gauze once daily per vascular recommendation) DVT prophylaxis IV heparin Code full Diet heart healthy Consultation pulmonary, vascular Problem List: 1. PVD (peripheral vascular disease) 2. Postoperative hypoxemia 3. Pleural effusion 4. COPD (chronic obstructive pulmonary disease) with emphysema Pain Ratin Tomorrow's Labs & Rationales: CBC, ICU bundle Plan DVT/Prophylaxis: pharmacological Code Status: Full Code
[2016-12-19 08:00] VITALS: BP 130/70
--- NOTE | 2016-12-19 08:17 | PN- CRCU ---
Subjective HPI/Critical Care Issues: The patient is awake and continues to complain of right lower extremity pain. She denies shortness of breath. She remains on 4 L nasal cannula with saturations in the mid 90s. She has had adequate negative fluid balance with diuresis. She remains on a heparin drip without any evidence of bleeding. The patient remains afebrile. Objective Current Medications: Current Medications Sig/Chris Start time Last Medication Dose Route Stop Time Status Admin Acetaminophen 650 MG Q6PRN PRN 12/12 1715 AC 12/16 PO 2002 Albuterol Sulfate 3 ML EVERY 4 HRS/AWAKE 12/14 1200 AC 12/18 INH 2139 Atorvastatin Calcium 20 MG 1700 12/13 1700 AC 12/18 PO 1558 Docusate Sodium 100 MG DAILY NEEDED PRN 12/12 171 AC PO Escitalopram Oxalate 10 MG DAILY 12/13 1000 AC 12/18 PO 1049 Furosemide 40 MG 7:30 AM, & 4:30 PM 12/17 1630 AC 12/19 IV 0757 Gabapentin 300 MG DAILY 12/13 1000 AC 12/18 PO 1049 Heparin Sodium 25,000 UNIT Q24H 12/18 1030 DC 12/18 (Porcine) IV 12/19 0700 2355 Sodium Chloride 500 ML Heparin Sodium 25,000 UNIT Q24H 12/16 1445 DC 12/17 (Porcine) IV 12/18 1028 1443 Sodium Chloride 500 ML Ipratropium [place] 2.5 ML EVERY 4 HRS/AWAKE 12/14 1200 AC 12/18 INH 2140 Losartan Potassium 100 MG DAILY 12/13 1000 AC 12/16 PO 1044 Meropenem 1 GM Q8 12/13 1400 AC 12/19 IV 0516 Metoprolol Tartrate 25 MG BID 12/13 2200 AC 12/18 PO 1049 Mirtazapine 15 MG QPM 12/15 2200 AC 12/18 PO 2151 Morphine Sulfate 2 MG DAILY NEEDED PRN 12/15 0945 AC IV Omeprazole 20 MG DAILY AC 12/14 0700 AC 12/19 PO 0606 Ondansetron HCl 4 MG Q8P PRN 12/12 1715 AC IV Oxycodone/ 1 TAB Q4P PRN 12/12 1715 AC 12/18 Acetaminophen PO 2159 Oxycodone/ 2 TAB Q4P PRN 12/12 1715 AC 12/15 Acetaminophen PO 2200 Patient Medication 1 UNIT ONE NR 12/18 1045 [place] Teaching ED 12/18 1645 Polyethylene Glycol 17 GM DAILY PRN 12/18 0945 AC PO Senna 187 MG AT BEDTIME 12/18 2199 AC 12/18 PO 2151 Vital Signs & I&O Last 24 Hrs of Vitals and I&O: Vital Signs Date Time Temp Pulse Resp B/P B/P Pulse O2 O2 Flow FiO2 Mean Ox Delivery Rate 12/19 0400 94 Nasal 4.0L Cannula 12/19 0000 05 Nasal 4.0L Cannula 12/19 0000 97.2 89 17 110/60 96 Nasal 4.0L Cannula 12/18 2000 94 Nasal 4.0L Cannula 12/18 1800 95 Nasal 4.0L Cannula 12/18 1600 Nasal 4.0L Cannula 12/18 1600 99.0 86 20 90/60 95 Nasal 4.0L Cannula 12/18 1552 Nasal 4.0L Cannula 12/18 1200 96 Nasal 4.0L Cannula 12/18 1049 93 117/70 12/18 0824 95 Nasal 4.0L Cannula Intake & Output 12/19 1600 12/19 0800 12/19 0000 Intake Total 154 926.7 Output Total 630 450 Balance -476 476.7 Intake, IV 154 206.7 Intake, Oral 720 Number 0 Bowel Movements Output, Urine 630 450 Physical Exam General Appearance: awake, comfortable, thin, chronically ill Head: atraumatic Neck: supple Respiratory: severely diminished breath sounds with basilar crackles Cardiovascular: regular rate/rhythm (heart sounds distant) Gastrointestinal: normal bowel sounds, soft, non-tender Extremities: no edema, right lower extremity bandages in place Skin: warm/dry Results Last 24 Hrs of Lab Results: Laboratory Tests 12/19/16 0700: Fluid Amylase Cancelled 12/19/16 0400: Anion Gap 7, Estimated GFR > 60, Glucose 90, Calcium 8.9, Phosphorus 4.1, Magnesium 2.0, Total Bilirubin 0.9, AST 20, ALT 43, Albumin 2.6 L, CBC w Diff NO MAN DIFF REQ, RBC 4.01 L, MCV 95.0, MCH 31.2 H, RDW 14.9 H, MPV 8.6, Gran % 74.2, Lymphocytes % 15.8 L, Monocytes % 7.8, Eosinophils % 1.8, Basophils % 0.4, Absolute Granulocytes 7.2 H, Absolute Lymphocytes 1.5, Absolute Monocytes 0.8 H, Absolute Eosinophils 0.2, Absolute Basophils 0, PUBS MCHC 32.9 L 12/19/16 0045: APTT > 120 *H 12/18/16 1300: APTT 62 H Impression/Plan Impression/Plan Impression/Plan: 1. Postoperative hypoxemia, secondary to pulmonary edema, bilateral effusions and atelectasis. 2. Status post right LE venogram for PAD, right lower extremity non-healing ulcer. 3. History of osteomyelitis, on meropenem. 4. Severe COPD. Recommendations: * Continue with Lasix, negative fluid balance. * Await diagnostic and therapeutic thoracentesis. * Continue meropenem for osteomyelitis, follow cultures. * Incentive spirometry to continue. * TRC for [id number] nebulizer treatments - albuterol and atrovent. * Bedside spirometry, to be done by respiratory. * Out of bed to chair. * Continue with 02, keep saturations greater than 92% at rest, and 88% on exertion. Attempt oxygen titration. * Continue with IV Heparin for DVT prophylaxis. * Continue all supportive care. Code Status: Full Code
--- NOTE | 2016-12-19 08:45 | NUR ---
0800: RECEIVED PATIENT IN BED. ALERT AND ORIENTED. PATIENT STATES SOME WEAKNESS TO LEFT ARM, UNABLE TO LIFT ABOV HER HEAD, GOOD HAND GRASP BILATERALLY. AFIB ON MONITOR. MANUAL B/P 130/70. AFEBRILE. 4L NC IN PLACE, LUNGS CLEAR, NON PRODUCTIVE COUGH, DENIES SOB. ABDOMEN SOFT, +BS NO BM SINCE 5-12. DENIES NAUSEA. NPO FOR THORACENTESIS AT [address] DRAINING ADEQUATE AMOUNTS OF YELLOW URINE, 40MG IV LASIX GIVEN. RIGHT LEG TENDER, RED, DRESSING IN PLACE, PATIENT REFUSING DRESSING CHANGE AT THIS TIME, SOME OLD BLOODY DRAINAGE NOTED. SANDRA DL PICC, +BLOOD RETURN, BIOPATCH IN PLACE. HEPARIN GTT D/C'D AT 7AM FOR THORACENTESIS. PERCOCET PRN FOR PAIN. WILL MONITOR.
--- NOTE | 2016-12-19 09:18 | NUR ---
PATIENT REFUSING TO TAKE ANY CARDIAC MEDICATIONS UNTIL CARDIOLOGY COMES TO SEE HER DUE TO HER DROP IN BLOOD PRESSURE YESTERDAY. HOLDING MEDS AT THIS TIME. WILL MONITOR. B/P STABLE. HEART RATE STABLE.
--- NOTE | 2016-12-19 09:29 | PN- Vascular Surgery ---
Surgical Brief Attending Note Brief Attending Note: Pt. now POD #7 s/p LLE angio/stent now with pleural effusion abd hypoxia. Pt. awaiting pleural tap by IR which is delayed bc of pts. anticoag. She denies major leg pain. No rest pain. PE: AF/VSS Ext: Foot warm, +PT signal. A/P Awaiting IR pleural tap ? today Restart Eliquis post-procedure PT consult OOB chair Restart Eliquis after tap when stable from pulm./CCM
--- NOTE | 2016-12-19 11:10 | ECHOCARDIOGRAM REPORT ---
FABIOLA MIKE Age: 80 : 1935 Gender: F Exam Date: 12/17/2016 08:19 Exam Location: [facility] Ht (in): 69 Wt (lb): 129 BSA: 1.68 BP: 158 / 95 Ordering Physician: CAMILLE COLLINS MD Referring Physician: Alexander Montes MD Chief, SoC Technologist: Dania Donato RDCS Room Number: 108 Indications: SHORTNESS OF BREATH Rhythm: Atrial fibrillation Technical Quality: Good FINDINGS Left Ventricle Normal size left ventricle. Mild concentric left ventricular hypertrophy. Normal left ventricular ejection fraction visually estimated at >60%. Normal left ventricular wall motion. Right Ventricle Normal right ventricular size and function. Right Atrium Normal right atrial size. Left Atrium Mild left atrial dilatation. Mitral Valve Mitral valve thickened. Mild mitral regurgitation. Aortic Valve Diffuse thickening (sclerosis) of the aortic valve cusps without reduced excursion. No aortic stenosis. No aortic regurgitation. Tricuspid Valve Tricuspid valve not well visualized, grossly normal. Mild tricuspid regurgitation. No evidence of pulmonary hypertension. Pulmonic Valve Left pleural effusion. Small pericardial effusion. Pericardium No pericardial effusion. Great Vessels Normal size aortic root. CONCLUSIONS Normal size left ventricle. Mild concentric left ventricular hypertrophy. Normal left ventricular ejection fraction visually estimated at > 60%. Mild left atrial dilatation. Mild mitral regurgitation. Mild tricuspid regurgitation. Left pleural effusion. Small pericardial effusion. Doc Lezama M.D. (Electronically Signed) Final Date: 19 Dec 2016 11:09 MEASUREMENTS (Male / Female) Normal Values 2D ECHO LV Diastolic Diameter PLAX 3.4 cm 4.2 - 5.9 / 3.9 - 5.3 cm LV Systolic Diameter PLAX 2.1 cm 2.1 - 4.0 cm LV Fractional Shortening PLAX 38.2 % 25 - 46 % LV Ejection Fraction 2D Teich 69.6 % IVS Diastolic Thickness 1.4 cm LVPW Diastolic Thickness 1.4 cm LV Relative Wall Thickness 0.8 RV Internal Dim ED PLAX 3.2 cm 1.9 - 3.8 cm LVOT Diameter 1.9 cm Aortic Root Diameter 3.4 cm LA Systolic Diameter LX 4.4 cm 3.0 - 4.0 / 2.7 - 3.8 cm LA Volume 63.0 cm 18 - 58 / 22 - 52 cm Ascending Aorta Diameter 3.0 cm DOPPLER AV Peak Velocity 104.0 cm/s AV Peak Gradient 4.3 mmHg AV Mean Velocity 70.1 cm/s AV Mean Gradient 2.0 mmHg AV Velocity Time Integral 20.1 cm LVOT Peak Velocity 77.5 cm/s LVOT Peak Gradient 2.4 mmHg LVOT Mean Velocity 49.4 cm/s LVOT Mean Gradient 1.0 mmHg LVOT Velocity Time Integral 13.7 cm LVOT Stroke Volume 38.8 cm AV Area Cont Eq vti 1.9 cm AV Area Cont Eq pk 2.1 cm MV Peak Velocity 134.0 cm/s MV Peak Gradient 7.2 mmHg MV Mean Velocity 71.8 cm/s MV Mean Gradient 3.0 mmHg Mitral E Point Velocity 119.0 cm/s MV PHT Velocity 138.0 cm/s MV Deceleration [place] 602.0 cm/s MV Pressure Half Time 68.8 ms MV Area PHT 3.2 cm MV Deceleration Time 180.0 ms TR Peak Velocity 303.0 cm/s TR Peak Gradient 36.7 mmHg Right Atrial Pressure 5.0 mmHg Pulmonary Artery Systolic Pressu 41.7 mmHg Right Ventricular Systolic Press 41.7 mmHg PV Peak Velocity 82.7 cm/s PV Peak Gradient 2.7 mmHg PV Mean Velocity 57.8 cm/s PV Mean Gradient 2.0 mmHg PV Velocity Time Integral 15.5 cm LV E' Lateral Velocity 13.8 cm/s Mitral E to LV E' Lateral Ratio 8.6 LV E' Septal Velocity 9.9 cm/s Mitral E to LV E' Septal Ratio 12.0
--- NOTE | 2016-12-19 12:16 | NUR ---
NO THORACENTESIS TODAY DUE TO NOT ENOUGH FLUID TO TAP. HEPARIN GTT RESTARTED AT PREVIOUS RATE OF 25.2 ML/HR OR 18 UNITS/KG/HR. 500 ML NS BOLUS RUNNING WELL FOR LOW B/P 90/60. PTT DRAWN AND SENT AT THIS TIME. HEART HEALTHY DIET ORDERED. WILL MONITOR.
[2016-12-19 12:40] LABS: PTT 34 SEC (25-37)
--- NOTE | 2016-12-19 14:45 | NUR ---
PATIENT ATTEMPTED TO WORK WITH PHYSICAL THERAPY. +ORTHOSTATICS.
--- NOTE | 2016-12-19 15:25 | ULTRASOUND REPORT ---
EXAM: Limited chest ultrasound INDICATION: Pleural effusion, right greater than left FINDINGS: Ultrasound imaging of the chest revealed a small right-sided pleural effusion and trace left-sided pleural fluid. No safe window to tap could be identified. Thoracentesis was therefore not performed. CONCLUSION: Small right-sided pleural effusion and trace left-sided pleural fluid. No thoracentesis performed.
[2016-12-19 16:00] VITALS: BP 92/60
[2016-12-19 19:19] LABS: PTT 47 SEC (25-37)
--- NOTE | 2016-12-19 21:04 | PN- Vascular Surgery ---
Subjective Subjective: Thoracentesis was canceled today due to minimal fluid. From a vascular surgical standpoint, patient may be restarted on eliquis if no further procedures are planned by medicine/pulmonary. Patient complains of pain to the right lateral lower leg that has been unchanged. Objective Vital Signs and I&Os Vital Signs Date Time Temp Pulse Resp B/P B/P Pulse O2 O2 Flow FiO2 Mean Ox Delivery Rate 12/19 2000 Nasal 3.0L Cannula 12/19 1639 95 Nasal 3.0L Cannula 12/19 1600 Nasal 3.0L Cannula 12/19 1600 97.4 94 20 92/60 95 Nasal 3.0L Cannula 12/19 1425 Nasal 4.0L Cannula 12/19 1200 Nasal 4.0L Cannula 12/19 0913 103 129/69 12/19 0913 103 129/69 12/19 0851 98 Nasal 4.0L Cannula 12/19 0800 Nasal 4.0L Cannula 12/19 0800 97.7 88 20 130/70 96 Nasal 4.0L Cannula 12/19 0400 94 Nasal 4.0L Cannula 12/19 0000 05 Nasal 4.0L Cannula 12/19 0000 97.2 89 17 110/60 96 Nasal 4.0L Cannula Intake & Output 12/19 1600 16 0800 12/19 0000 12/18 1600 12/18 0800 05 0000 Intake Total 1690.8 154 926.7 704 296 480.8 Output Total 1450 108 058 5020 680 2620 Balance 240.8 -476 476.7 -1596 -384 -2139.2 Intake, IV 1150.8 154 206.7 224 246 240.8 Intake, Oral 540 720 480 50 240 Number 0 0 0 Bowel Movements Output, Stool 0 Output, Urine 1450 770 973 3186 680 2620 Patient 130 lb Weight Physical Exam: Awake and alert, no complaints. Foot is warm, posterior tibial signal noted Wiggles toes. Assessment/Plan Assessment/Plan Continue local wound care and antibiotics. Restart eliquis when okayed by medicine/pulmonary if no further procedures or contraindications Follow-up with 3 days after discharge Please call with questions, will sign off. Core Measures/Miscellaneous Walls Catheter Date In: 12/16/16 Venous Thromboembolism VTE Risk Factors: Age > 40, Surgery VTE Contraindications: No Contraindications No Mech VTE Prophylaxis D/T: Peripheral Vascular Dx, Surgical Procedure LE VTE Diagnosis: No VTE Type: NONE VTE Confirmed by (Test): NONE Beta Jerry Is Beta Jerry a Home Med? Yes If Yes, Was This Ordered Today? Yes Antibiotics Is Patient on Antibiotics? Yes If Yes: infection
[2016-12-19 23:00] VITALS: BP 112/68
[2016-12-20 02:43] LABS: PTT 65 SEC (25-37)
[2016-12-20 05:11] LABS: ABSOLUTE BASOPHIL COUNT 0.1 /CUMM (0.0-0.2); ABSOLUTE EOSINOPHIL COUNT 0.2 /CUMM (0.0-0.7); ABSOLUTE LYMPH COUNT 1.5 /CUMM (1.2-3.4); ABSOLUTE MONOCYTE COUNT 0.7 /CUMM (0.10-0.60); BASOPHIL % 0.7 % (0.0-2.0); EOSINOPHIL % 2.2 % (0-5); HEMATOCRIT 36.2 % (37-47); MEAN CORPUSCULAR HGB 30.9 PG (27.0-31.0); MEAN CORPUSCULAR HGB CONC 32.8 G/DL (33.0-37.0); MEAN CORPUSCULAR VOLUME 94.4 FL (81.0-99.0); MEAN PLATELET VOLUME 8.3 FL (7.4-10.4); PLATELET COUNT 491 /CUMM (130-400); RBC DISTRIBUTION WIDTH 14.7 % (11.5-14.5); RED BLOOD CELL CT 3.83 /CUMM (4.20-5.40); WHITE BLOOD CELL COUNT 8.4 /CUMM (4.8-10.8)
--- NOTE | 2016-12-20 05:50 | NUR ---
PT IS AOX3. BP HAS REMAINED STABLE OVERNIGHT. HS METOPROLOL WAS HELD PER GAUTAM SANTILLAN. PT DENIES SOB OR CHEST PAIN. O2 SAT 99% ON 3L. WHEELER PATENT AND DRAINING CLEAR YELLOW URINE. + BOWEL SOUNDS, PT HAD SENNA AT HS. DRESSING TO CHRONIC ULCER ON R SANCHEZ IS CDI. PT HAS PAIN IN R SANCHEZ WHICH IS RELIEVED BY PRN PERCOCET. HEPARIN GTT INFUSING AT 28ML/HR (20U/KG/HR). HR AFIB ON THE MONITOR 90S-110S. WILL CONTINUE TO CLOSELY MONITOR.
--- NOTE | 2016-12-20 06:53 | NUR ---
AT 0600 PT HAD 12 BEAT RUN OF VTACH ON MONITOR. PATIENT ASYMPTOMATIC, VSS. SUDEEP OBANDO AWARE.
--- NOTE | 2016-12-20 07:37 | PN- Resident CRCU ---
Subjective HPI/CRCU Issues: Follow-up for: -Postoperative hypoxemia, PE was ruled out -PAD S/P right LE venogram -Right lower extremity non-healing ulcer -History of osteomyelitis, on meropenem -Severe COPD Patient was seen and examined this morning, she is lying comfortably in bed, denied chest pain, cough, shortness of breath, palpitation, dizziness. Patient reported pain in right lower extremity upon movement. Denied abdominal pain, nausea or vomiting. Didn't have bowel movement despite bowel regimen. 24 Hour Events: Temperature 97.2, MAXIMUM TEMPERATURE 98 Pulse lowest 88, highest 118 A. fib Blood pressure lowest 83/52, highest 145/79 Respiratory rate 17 on 3 L oxygen saturating 99% Intakes 3027, output 2670 Objective Vital Signs & I&O Last 8 Hrs of Vitals and I&O: Intake & Output 12/20 1600 Intake Total Output Total 150 Balance -150 Output, Urine 150 Exam General Appearance: no apparent distress, alert, awake Head: atraumatic, normal appearance Ears, Nose, Throat: normal pharynx, normal ENT inspection Neck: normal inspection, supple, full range of motion Respiratory: normal breath sounds, chest non-tender, no respiratory distress Cardiovascular: irregularly irregular Gastrointestinal: normal bowel sounds, soft, non-tender Extremities: normal inspection, normal capillary refill, normal range of motion, no edema, right leg wrapped in clean bandages, very tender on palpation Cranial Nerves: normal hearing, normal speech, PERRL Skin: intact, normal color, warm/dry Current Medications: Current Medications Sig/Chris Start time Last Medication Dose Route Stop Time Status Admin Acetaminophen 650 MG Q6PRN PRN 12/12 1715 AC 12/16 PO 2001 Albuterol Sulfate 3 ML EVERY 4 HRS/AWAKE 12/14 1200 AC 12/20 INH 1203 Apixaban 5 MG BID 12/20 1000 AC 12/20 PO 1033 Atorvastatin Calcium 20 MG 1700 12/13 1700 AC 12/19 PO 1707 Bisacodyl 10 MG DAILY PRN 12/20 1030 AC MN Bisacodyl 5 MG DAILY 12/20 1016 AC 12/20 PO 1220 Docusate Sodium 100 MG DAILY NEEDED PRN 12/12 1715 AC PO Escitalopram Oxalate 10 MG DAILY 12/13 1000 AC 12/20 PO 1033 Furosemide 40 MG DAILY 12/20 1000 CAN IV Furosemide 40 MG 7:30 AM, & 4:30 PM 12/17 1630 DC 12/19 IV 0757 Gabapentin 300 MG DAILY 12/13 1000 AC 12/20 PO 1033 Heparin Sodium 25,000 UNIT Q24H 12/19 1200 DC 12/20 (Porcine) IV 12/20 1100 0310 Sodium Chloride 500 ML Ipratropium [place] 2.5 ML EVERY 4 HRS/AWAKE 12/14 1200 AC 12/20 INH 1203 Losartan Potassium 100 MG DAILY 12/13 1000 AC 12/16 PO 1044 Meropenem 1 GM Q8 12/13 1400 AC 12/20 IV 0626 Metoprolol Tartrate 25 MG BID 12/13 2200 AC 12/18 PO 1049 Mirtazapine 15 MG QPM 12/15 2200 AC 12/19 PO 2149 Morphine Sulfate 2 MG DAILY NEEDED PRN 12/15 0945 AC IV Omeprazole 20 MG DAILY AC 12/14 0700 AC 12/20 PO 0626 Ondansetron HCl 4 MG Q8P PRN 12/12 1715 AC IV Oxycodone/ 1 TAB Q4P PRN 12/12 1715 AC 12/20 Acetaminophen PO 1011 Oxycodone/ 2 TAB Q4P PRN 12/12 1715 AC 12/15 Acetaminophen PO 2200 Polyethylene Glycol 17 GM DAILY PRN 12/18 0945 AC 12/20 PO 1221 Senna 187 MG AT BEDTIME 12/18 2200 AC 12/19 PO 2149 Sodium Chloride 500 ML BOLUS ONE 12/20 1030 DC 12/20 IV 12/20 1129 1034 Sodium Chloride 500 ML BOLUS ONE 12/19 1500 DC 12/19 IV 12/19 1559 1509 Impression/Plan Impression/Problem List Impression: 80-year-old lady who is an every day smoker with pmh of HTN, HLD, A.fib on Eliquis, severe PAD s/p femoral bypass in January of 2014, venous stasis ulcer, TIA , CVA, polio, was admitted for postoperative hypoxemia following an elective Rt. lower extremity venogram for Rt. leg PAD on 12/12/16 likely from pleural effusions and bibasilar atelectasis. Respiratory: -Post operative hypoxemia likely secondary to pleural effusion (Rt > Lt) and bibasilar atelectasis: -Severe COPD/emphysema: current every-day smoker: * Continue oxygen support to keep O2> 92% on rest, O2> 88% on exertion * PE was roled out by CTA * US-guided thoracentesis canceled as bedside chest ultrasound didn't reveal any fluid to tap * Eliquis 5 mg BID was started * Continue incentive spirometry, TRC (albuterol and atrovent) * We'll obtain chest x-ray PA and lateral today Infectious Diseases: - Chronic ulcer on right pretibial area * Osteomyelitis, continue IV meropenem * Status post right angiogram on 12/12/16, transferred to ICU on 12/16 for worsening hypoxemia after postprocedure desaturation to 83% on room air * Status post popliteal femoral bypass in January 2014 * Surveillance Upper respiratory culture negative * Surveillance GI rectal culture positive for vancomycin-resistant enterococcus Cardiovascular: * Cardiology consultation was obtained, thanks for recommendation * Nahun, was on IV heparin for anticipated thoracentesis, elequis was restarted today * Patient received 3 boluses of 500 mL normal saline due to hypotension, will DC Lasix * HTN: hold lopressor 25mg bid, cozaar 100mg daily for hypertension * HLD: c/w lipitor 20mg daily * Patient had 14 runs of nonsustained asymptomatic VT Metabolic: * Stable Alimentary: * Heart healthy diet, nothing by mouth at midnight for thoracocentesis * Nutritional consultation was placed Neurological: * History of CVA: aspirin was held with IV heparin. Continue lipitor * Depression: c/w remeron, lexapro Skin: * Chronic nonhealing ulcer of the right leg s/p right leg angiogram on 2016: Continue wound care (with Adaptic and gauze once daily per vascular recommendation) DVT prophylaxis Elequis Code full Diet heart healthy Consultation pulmonary, vascular, PT Problem List: 1. PVD (peripheral vascular disease) 2. Postoperative hypoxemia 3. COPD (chronic obstructive pulmonary disease) with emphysema Pain Ratin Tomorrow's Labs & Rationales: CBC, ICU bundle Plan DVT/Prophylaxis: pharmacological Code Status: Full Code
[2016-12-20 08:00] VITALS: BP 126/64
--- NOTE | 2016-12-20 08:09 | PN- CRCU ---
Subjective HPI/Critical Care Issues: The patient is sleeping comfortably, but then arousable. The patient's oxygen requirement has improved noting she is 99% on 3 L nasal cannula. Yesterday, the patient was mildly hypotensive noting she received a fluid bolus. She remains in atrial fibrillation, on IV heparin. She is afebrile. The patient did not qualify for thoracentesis yesterday due to not enough pleural fluid to tap. The patient continues to have a poor appetite. She had an episode of NSVT earlier this morning. Objective Current Medications: Current Medications Sig/Chris Start time Last Medication Dose Route Stop Time Status Admin Acetaminophen 650 MG Q6PRN PRN 12/12 1715 AC 12/16 PO 2001 Albuterol Sulfate 3 ML EVERY 4 HRS/AWAKE 12/14 1200 AC 12/19 INH 2004 Atorvastatin Calcium 20 MG 1700 12/13 1700 AC 12/19 PO 1707 Docusate Sodium 100 MG DAILY NEEDED PRN 12/12 1715 AC PO Escitalopram Oxalate 10 MG DAILY 12/13 1000 AC 12/19 PO 0912 Furosemide 40 MG DAILY 12/20 1000 AC IV Furosemide 40 MG 7:30 AM, & 4:30 PM 12/17 1630 DC 12/19 IV 0757 Gabapentin 300 MG DAILY 12/13 1000 AC 12/19 PO 0912 Heparin Sodium 25,000 UNIT Q24H 12/19 1200 AC 12/20 (Porcine) IV 0310 Sodium Chloride 500 ML Ipratropium [place] 2.5 ML EVERY 4 HRS/AWAKE 12/14 1200 AC 12/19 INH 2004 Losartan Potassium 100 MG DAILY 12/13 1000 AC 12/16 PO 1044 Meropenem 1 GM Q8 12/13 1400 AC 12/20 IV 0626 Metoprolol Tartrate 25 MG BID 12/13 2200 AC 12/18 PO 1049 Mirtazapine 15 MG QPM 12/15 2200 AC 12/19 PO 2149 Morphine Sulfate 2 MG DAILY NEEDED PRN 12/15 0945 AC IV Omeprazole 20 MG DAILY AC 12/14 0700 AC 12/20 PO 0626 Ondansetron HCl 4 MG Q8P PRN 12/12 1715 AC IV Oxycodone/ 1 TAB Q4P PRN 12/12 1715 AC 12/20 Acetaminophen PO 0626 Oxycodone/ 2 TAB Q4P PRN 12/12 1715 AC 12/15 Acetaminophen PO 2200 Polyethylene Glycol 17 GM DAILY PRN 12/18 0945 AC PO Senna 187 MG AT BEDTIME 12/18 2200 AC 12/19 PO 2149 Sodium Chloride 500 ML BOLUS ONE 12/19 1500 DC 12/19 IV 12/19 1559 1509 Sodium Chloride 500 ML BOLUS ONE 12/19 1200 DC 12/19 IV 12/19 1259 1215 Vital Signs & I&O Last 24 Hrs of Vitals and I&O: Vital Signs Date Time Temp Pulse Resp B/P B/P Pulse O2 O2 Flow FiO2 Mean Ox Delivery Rate 12/20 0400 99 Nasal 3.0L Cannula 12/20 0000 Nasal 3.0L Cannula 12/19 2300 96.9 100 18 112/68 98 Nasal 3.0L Cannula 12/19 2234 98 118/64 12/19 2000 Nasal 3.0L Cannula 12/19 1639 95 Nasal 3.0L Cannula 12/19 1600 Nasal 3.0L Cannula 12/19 1600 97.4 94 20 92/60 95 Nasal 3.0L Cannula 12/19 1425 Nasal 4.0L Cannula 12/19 1200 Nasal 4.0L Cannula 12/19 0913 103 129/69 12/19 0913 103 129/69 12/19 0851 98 Nasal 4.0L Cannula 12/19 0800 Nasal 4.0L Cannula 12/19 0800 97.7 88 20 130/70 96 Nasal 4.0L Cannula Intake & Output 12/20 0800 12/20 0000 12/19 1600 Intake Total 494 814.8 1690.8 Output Total 056 930 4934 Balance -296 484.8 240.8 Intake, IV 254 214.8 1150.8 Intake, Oral 240 600 540 Number 0 Bowel Movements Output, Urine 245 934 9127 Physical Exam General Appearance: awake, comfortable, thin, chronically ill Head: atraumatic Neck: supple Respiratory: severely diminished breath sounds with basilar crackles Cardiovascular: regular rate/rhythm (heart sounds distant) Gastrointestinal: normal bowel sounds, soft, non-tender Extremities: no edema, right lower extremity bandages in place Skin: warm/dry Results Last 24 Hrs of Lab Results: Laboratory Tests 12/20/16 0430: Anion Gap 6, Estimated GFR > 60, Glucose 90, Calcium 8.7, Phosphorus 3.4, Magnesium 2.0, Total Bilirubin 0.8, AST 23, ALT 47, Albumin 2.4 L, CBC w Diff NO MAN DIFF REQ, RBC 3.83 L, MCV 94.4, MCH 30.9, RDW 14.7 H, MPV 8.3, Gran % 71.0, Lymphocytes % 17.5 L, Monocytes % 8.6, Eosinophils % 2.2, Basophils % 0.7 , Absolute Granulocytes 6.0, Absolute Lymphocytes 1.5, Absolute Monocytes 0.7 H , Absolute Eosinophils 0.2, Absolute Basophils 0.1, PUBS MCHC 32.8 L 12/20/16 0205: APTT 65 H 12/19/16 1810: APTT 47 H 12/19/16 1210: APTT 34 12/19/16 0845: APTT Cancelled Diagnostic Data CXR Findings: Small right-sided pleural effusion and trace left-sided pleural fluid. No thoracentesis performed. Impression/Plan Impression/Plan Impression/Plan: 1. Postoperative hypoxemia, secondary to pulmonary edema, bilateral effusions and atelectasis. 2. Status post right LE venogram for PAD, right lower extremity non-healing ulcer. 3. History of osteomyelitis, on meropenem. 4. Severe COPD. 5. Atrial fibrillation, on IV heparin. 6. Nonsustained ventricular tachycardia. Recommendations: * Taper oxygen for saturation greater than 92%. * Hold Lasix today. * Check a PA and lateral CXR today. * Stop heparin drip and start Eliquis. * PT consult. * Increase activity, out of bed to chair. * Continue meropenem for osteomyelitis - duration of therapy? * Incentive spirometry to continue. * TRC for [id number] nebulizer treatments. * Continue with pain control. * Discontinue Walls catheter. * NSVT discussed with cardiology. We'll continue with electrical repletion. Continue to monitor for now. * Case management to look for short-term rehabilitation as the patient is weak and will need significant physical therapy. Code Status: Full Code
[2016-12-20 11:40] VITALS: BP 122/70
--- NOTE | 2016-12-20 12:04 | PN- Cardiology ---
Subjective Subjective: The patient is awake and alert. No specific cardiac complaints. He remains in atrial fibrillation. A 12 beat run of nonsustained ventricular tachycardia was noted this morning. The patient was a symptomatically during that episode. Objective Vital Signs and I&Os Vital Signs Date Time Temp Pulse Resp B/P B/P Pulse O2 O2 Flow FiO2 Mean Ox Delivery Rate 12/20 1033 102 105/60 12/20 0846 95 Nasal 2.0L Cannula 12/20 0800 Nasal 2.0L Cannula 12/20 0800 97.7 94 22 126/64 98 Nasal 2.0L Cannula 12/20 0400 99 Nasal 3.0L Cannula 12/20 0000 Nasal 3.0L Cannula 12/19 2300 96.9 100 18 112/68 98 Nasal 3.0L Cannula 12/19 2234 98 118/64 12/19 2000 Nasal 3.0L Cannula 12/19 1639 95 Nasal 3.0L Cannula 12/19 1600 Nasal 3.0L Cannula 12/19 1600 97.4 94 20 92/60 95 Nasal 3.0L Cannula 12/19 1425 Nasal 4.0L Cannula Intake & Output 12/20 1600 12/20 0800 12/20 0000 12/19 1600 12/19 0800 12/19 0000 Intake Total 494 814.8 1690.8 154 926.7 Output Total 150 102 767 6308 630 450 Balance -150 -296 484.8 240.8 -476 476.7 Intake, IV 254 214.8 1150.8 154 206.7 Intake, Oral 240 600 540 720 Number 0 0 Bowel Movements Output, Urine 150 227 907 5728 630 450 Current Medications: Current Medications Sig/Chris Start time Last Medication Dose Route Stop Time Status Admin Acetaminophen 650 MG Q6PRN PRN 12/12 1715 AC 12/16 PO 2002 Albuterol Sulfate 3 ML EVERY 4 HRS/AWAKE 12/14 1200 AC 12/20 INH 1203 Apixaban 5 MG BID 12/20 1000 AC 12/20 PO 1033 Atorvastatin Calcium 20 MG 1700 12/13 1700 AC 12/19 PO 1707 Bisacodyl 10 MG DAILY PRN 12/20 1030 AC NE Bisacodyl 5 MG DAILY 12/20 1016 AC PO Docusate Sodium 100 MG DAILY NEEDED PRN 12/12 1715 AC PO Escitalopram Oxalate 10 MG DAILY 12/13 1000 AC 12/20 PO 1033 Furosemide 40 MG DAILY 12/20 1000 CAN IV Furosemide 40 MG 7:30 AM, & 4:30 PM 12/17 1630 DC 12/19 IV 0757 Gabapentin 300 MG DAILY 12/13 1000 AC 12/20 PO 1033 Heparin Sodium 25,000 UNIT Q24H 12/19 1200 DC 12/20 (Porcine) IV 12/20 1100 0310 Sodium Chloride 500 ML Ipratropium [place] 2.5 ML EVERY 4 HRS/AWAKE 12/14 1200 AC 12/20 INH 1203 Losartan Potassium 100 MG DAILY 12/13 1000 AC 12/16 PO 1044 Meropenem 1 GM Q8 12/13 1400 AC 12/20 IV 0626 Metoprolol Tartrate 25 MG BID 12/13 2200 AC 12/18 PO 1049 Mirtazapine 15 MG QPM 12/15 2200 AC 12/19 PO 2149 Morphine Sulfate 2 MG DAILY NEEDED PRN 12/15 0945 AC IV Omeprazole 20 MG DAILY AC 12/14 0700 AC 12/20 PO 0626 Ondansetron HCl 4 MG Q8P PRN 12/12 1715 AC IV Oxycodone/ 1 TAB Q4P PRN 12/12 1715 AC 12/20 Acetaminophen PO 1011 Oxycodone/ 2 TAB Q4P PRN 12/12 1715 AC 12/15 Acetaminophen PO 2200 Polyethylene Glycol 17 GM DAILY PRN 12/18 0945 AC PO Senna 187 MG AT BEDTIME 12/18 2200 AC 12/19 PO 2149 Sodium Chloride 500 ML BOLUS ONE 12/20 1030 DC 12/20 IV 12/20 1129 1034 Sodium Chloride 500 ML BOLUS ONE 12/19 1500 DC 12/19 IV 12/19 1559 1509 Sodium Chloride 500 ML BOLUS ONE 12/19 1200 DC 12/19 IV 12/19 1259 1215 Results Last 48 Hrs of Labs/Mics: Laboratory Tests 12/20/16 0430: Anion Gap 6, Estimated GFR > 60, Glucose 90, Calcium 8.7, Phosphorus 3.4, Magnesium 2.0, Total Bilirubin 0.8, AST 23, ALT 47, Albumin 2.4 L, CBC w Diff NO MAN DIFF REQ, RBC 3.83 L, MCV 94.4, MCH 30.9, RDW 14.7 H, MPV 8.3, Gran % 71.0, Lymphocytes % 17.5 L, Monocytes % 8.6, Eosinophils % 2.2, Basophils % 0.7 , Absolute Granulocytes 6.0, Absolute Lymphocytes 1.5, Absolute Monocytes 0.7 H , Absolute Eosinophils 0.2, Absolute Basophils 0.1, PUBS MCHC 32.8 L 12/20/16 0205: APTT 65 H 12/19/16 1810: APTT 47 H 12/19/16 1210: APTT 34 12/19/16 0845: APTT Cancelled 12/19/16 0700: Fluid Amylase Cancelled 12/19/16 0600: Fluid WBC Cancelled, Fld Total RBCs Counted Cancelled 12/19/16 0600: Fluid Glucose Cancelled, Fluid Total Protein Cancelled, Fluid Albumin Cancelled, Fluid LDH Cancelled, Fluid Amylase Cancelled 12/19/16 0400: Anion Gap 7, Estimated GFR > 60, Glucose 90, Calcium 8.9, Phosphorus 4.1, Magnesium 2.0, Total Bilirubin 0.9, AST 20, ALT 43, Albumin 2.6 L, CBC w Diff NO MAN DIFF REQ, RBC 4.01 L, MCV 95.0, MCH 31.2 H, RDW 14.9 H, MPV 8.6, Gran % 74.2, Lymphocytes % 15.8 L, Monocytes % 7.8, Eosinophils % 1.8, Basophils % 0.4, Absolute Granulocytes 7.2 H, Absolute Lymphocytes 1.5, Absolute Monocytes 0.8 H, Absolute Eosinophils 0.2, Absolute Basophils 0, PUBS MCHC 32.9 L 12/19/16 0045: APTT > 120 *H 12/18/16 1300: APTT 62 H Assessment/Plan Assessment/Plan Assessment: 1. Atrial fibrillation 2. Acute diastolic heart failure status post vascular procedure 2. Peripheral arterial disease 4. Nonsustained wide complex tachycardia Recommendations: -Keep the patient on leaf sorter. Once stable, transferred to [address] [place] [address] telemetry -Continue current medications -Follow-up labs in the a.m. -Adjusted to therapeutic INR.
[2016-12-20 14:00] VITALS: BP 120/70
--- NOTE | 2016-12-20 14:32 | RADIOLOGY REPORT ---
EXAMINATION: XR CHEST CLINICAL INFORMATION: Shortness of breath. Presumptive diagnosis of pulmonary edema. COMPARISON: Several prior chest x-rays, most recent of which is dated 12/16/2016. TECHNIQUE: 2 views of the chest were obtained. FINDINGS: There is a right-sided PICC line in place with tip in the mid SVC. The cardiomediastinal silhouette is within normal limits in size. Calcification of the aortic arch is seen. Lungs bilaterally are symmetrically hyperinflated, suggestive of obstructive lung disease. Previously seen patchy parenchymal opacity in the right upper lobe has nearly completely resolved. There is some retrocardiac opacity seen in the left lung base, most likely related to atelectasis. No significant effusion or pneumothorax is seen. There is a mild convex right thoracic curvature, which may at least in part be positional. Osteopenia is noted with mild vertebral spurring in the mid and lower thoracic spine. IMPRESSION: 1. PICC line catheter in the mid SVC. No pneumothorax. 2. Chest findings consistent with obstructive lung disease with near complete resolution of previously seen right upper lobe opacity. 3. Mild subsegmental atelectasis in left lung base.
[2016-12-20 16:00] VITALS: BP 140/80
[2016-12-20 23:00] VITALS: BP 126/68
--- NOTE | 2016-12-21 07:36 | PN- Resident CRCU ---
Subjective HPI/CRCU Issues: Follow-up for: -Postoperative hypoxemia, PE was ruled out -PAD S/P right LE venogram -Right lower extremity non-healing ulcer -History of osteomyelitis, on meropenem -Severe COPD Patient was seen and examined this morning, she denied chest pain, palpitation, dizziness, diaphoresis, fever, chills, cough. Denied abdominal pain, nausea or vomiting. No bowel movement. On 2 L oxygen saturating 92% 24 Hour Events: Off telemetry Objective Vital Signs & I&O Last 8 Hrs of Vitals and I&O: 11 Exam General Appearance: no apparent distress, awake Head: atraumatic, normal appearance Ears, Nose, Throat: normal pharynx, normal ENT inspection Neck: normal inspection, supple, full range of motion Respiratory: normal breath sounds, chest non-tender, no respiratory distress Cardiovascular: irregularly irregular Gastrointestinal: normal bowel sounds, soft, non-tender Extremities: normal inspection, normal capillary refill, normal range of motion, no edema Cranial Nerves: normal hearing, normal speech, PERRL Skin: intact, normal color, warm/dry Current Medications: Current Medications Sig/Chris Start time Last Medication Dose Route Stop Time Status Admin Acetaminophen 650 MG Q6PRN PRN 12/12 1715 AC 12/16 PO 2002 Albuterol Sulfate 3 ML EVERY 4 HRS/AWAKE 12/14 1200 AC 12/21 INH 1147 Apixaban 5 MG BID 12/20 1000 AC 12/21 PO 0851 Aspirin 81 MG DAILY 12/21 1321 AC PO Atorvastatin Calcium 20 MG 1700 12/13 1700 AC 12/20 PO 1638 Bisacodyl 10 MG DAILY PRN 12/20 1030 AC 12/21 DE 0852 Bisacodyl 5 MG DAILY 12/20 1016 AC 12/21 PO 0851 Docusate Sodium 100 MG DAILY NEEDED PRN 12/12 1715 AC PO Escitalopram Oxalate 10 MG DAILY 12/13 1000 AC 12/21 PO 0851 Gabapentin 300 MG DAILY 12/13 1000 AC 12/21 PO 0851 Ipratropium [place] 2.5 ML EVERY 4 HRS/AWAKE 12/14 1200 AC 12/21 INH 1147 Losartan Potassium 100 MG DAILY 12/13 1000 AC 12/16 PO 1044 Meropenem 1 GM Q8 12/13 1400 DC 12/21 IV 0521 Metoprolol Tartrate 25 MG BID 12/13 2200 AC 12/18 PO 1049 Mirtazapine 15 MG QPM 12/15 2200 AC 12/20 PO 2118 Morphine Sulfate 2 MG DAILY NEEDED PRN 12/15 0945 AC 12/20 IV 2152 Omeprazole 20 MG DAILY AC 12/14 0700 AC 12/21 PO 0521 Ondansetron HCl 4 MG Q8P PRN 12/12 1715 AC IV Oxycodone/ 1 TAB Q4P PRN 12/12 1715 AC 12/21 Acetaminophen PO 0852 Oxycodone/ 2 TAB Q4P PRN 12/12 1715 AC 12/21 Acetaminophen PO 0234 Polyethylene Glycol 17 GM DAILY PRN 12/18 0945 AC 12/20 PO 1221 Senna 187 MG AT BEDTIME 12/180 AC 12/20 PO 2118 Sodium Polystyrene 60 ML ONCE ONE 12/21 0745 DC Sulfonate PO 12/21 0746 Impression/Plan Impression/Problem List Impression: 80-year-old lady who is an every day smoker with pmh of HTN, HLD, A.fib on Eliquis, severe PAD s/p femoral bypass in January of 2014, venous stasis ulcer, TIA , CVA, polio, was admitted for postoperative hypoxemia following an elective Rt. lower extremity venogram for Rt. leg PAD on 12/12/16 likely from pleural effusions and bibasilar atelectasis. Respiratory: -Post operative hypoxemia likely secondary to pleural effusion (Rt > Lt) and bibasilar atelectasis: -Severe COPD/emphysema: current every-day smoker: * Continue oxygen support to keep O2> 92% on rest, O2> 88% on exertion * PE was roled out by CTA * US-guided thoracentesis canceled as bedside chest ultrasound didn't reveal any fluid to tap * Continue Eliquis 5 mg BID * Continue incentive spirometry, TRC (albuterol and atrovent) * Chest x-ray PA and lateral was obatined 12/20 1. PICC line catheter in the mid SVC. No pneumothorax. 2. Chest findings consistent with obstructive lung disease with near complete resolution of previously seen right upper lobe opacity. 3. Mild subsegmental atelectasis in left lung base. Infectious Diseases: - Chronic ulcer on right pretibial area * Osteomyelitis, continue IV meropenem, patient has PICC line * Status post right angiogram on 12/12/16, transferred to ICU on 12/16 for worsening hypoxemia after postprocedure desaturation to 83% on room air * Status post popliteal femoral bypass in January 2014 * Surveillance Upper respiratory culture negative * Surveillance GI rectal culture positive for vancomycin-resistant enterococcus Cardiovascular: * Cardiology consultation was obtained, thanks for recommendation * [place]un on elequis, patient was on IV heparin for anticipated thoracentesis * Patient received 3 boluses of 500 mL normal saline due to hypotension, will DC Lasix * HTN: hold lopressor 25mg bid, cozaar 100mg daily for hypertension * HLD: c/w lipitor 20mg daily * Patient had 14 runs of nonsustained asymptomatic VT * Patient is continue to have symptomatic hypotension, hyperkalemia today 5.2 * AM cortisol was obtained 4.1 Metabolic: * Hyperkalemia 4.1 Alimentary: * Heart healthy diet * Nutritional consultation was placed Neurological: * History of CVA: aspirin was resumed 81 mg daily * Continue lipitor * Depression: c/w remeron, lexapro Skin: * Chronic nonhealing ulcer of the right leg s/p right leg angiogram on 2016: Continue wound care (with Adaptic and gauze once daily per vascular recommendation) DVT prophylaxis Elequis Code full Diet heart healthy Consultation pulmonary, vascular, PT Problem List: 1. PVD (peripheral vascular disease) 2. Postoperative hypoxemia 3. COPD (chronic obstructive pulmonary disease) with emphysema Pain Ratin Tomorrow's Labs & Rationales: CBC, ICU bundle Plan DVT/Prophylaxis: pharmacological Code Status: Full Code
[2016-12-21 08:00] VITALS: BP 110/64
[2016-12-21 08:06] LABS: ABSOLUTE BASOPHIL COUNT 0 /CUMM (0.0-0.2); ABSOLUTE EOSINOPHIL COUNT 0.2 /CUMM (0.0-0.7); ABSOLUTE MONOCYTE COUNT 0.7 /CUMM (0.10-0.60); BASOPHIL % 0.5 % (0.0-2.0); EOSINOPHIL % 2.2 % (0-5); GRANULOCYTE % 75.8 % (42.2-75.2); HEMATOCRIT 35.5 % (37-47); MEAN CORPUSCULAR HGB 30.9 PG (27.0-31.0); MEAN CORPUSCULAR HGB CONC 32.6 G/DL (33.0-37.0); MEAN CORPUSCULAR VOLUME 94.8 FL (81.0-99.0); MEAN PLATELET VOLUME 8.6 FL (7.4-10.4); PLATELET COUNT 455 /CUMM (130-400); RBC DISTRIBUTION WIDTH 14.7 % (11.5-14.5); RED BLOOD CELL CT 3.74 /CUMM (4.20-5.40); WHITE BLOOD CELL COUNT 7.9 /CUMM (4.8-10.8)
--- NOTE | 2016-12-21 12:31 | PN- Cardiology ---
Subjective Subjective: Shortness of breath improving. No chest pain. No palpitations. No nausea or vomiting. No diaphoresis. Objective Vital Signs and I&Os Vital Signs Date Time Temp Pulse Resp B/P B/P Pulse O2 O2 Flow FiO2 Mean Ox Delivery Rate 12/21 1149 94 Nasal 1.0L Cannula 12/21 1008 102 110/64 12/21 1007 102 110/64 12/21 0000 98 Nasal 2.0L Cannula 12/20 2300 97.8 100 24 126/68 98 Nasal 2.0L Cannula 12/20 2153 90 146/84 12/20 1650 97 Nasal 2.0L Cannula 12/20 1600 96 Nasal 2.0L Cannula 12/20 1600 98.0 111 20 140/80 96 Nasal 2.0L Cannula 12/20 1400 120/70 12/20 1312 Nasal 3.0L Cannula Intake & Output 12/21 1600 12/21 0800 12/21 0000 12/20 1600 12/20 0800 12/20 0000 Intake Total 240 200 900 494 814.8 Output Total 1315 1450 350 790 330 Balance -1075 -1250 550 -296 484.8 Intake, IV 180 254 214.8 Intake, Oral 240 200 720 240 600 Output, Urine 1315 1450 350 790 330 Physical Exam: Gen: NAD HEENT: normal Lungs: Scattered rales bilaterally, normal resp. effort Heart: RRR, S1, S2, no murmurs Abdomen: Soft, nontender, no masses Extremities: No clubbing, cyanosis, or edema. Neuro: Alert and oriented x 3, cranial nerves intact Current Medications: Current Medications Sig/Chris Start time Last Medication Dose Route Stop Time Status Admin Acetaminophen 650 MG Q6PRN PRN 12/12 1715 AC 12/16 PO 2002 Albuterol Sulfate 3 ML EVERY 4 HRS/AWAKE 12/14 1200 AC 12/21 INH 1147 Apixaban 5 MG BID 12/20 1000 AC 12/21 PO 0851 Atorvastatin Calcium 20 MG 1700 12/13 1700 AC 12/20 PO 1638 Bisacodyl 10 MG DAILY PRN 12/20 1030 AC 12/21 [place] 0852 Bisacodyl 5 MG DAILY 12/20 1016 AC 12/21 PO 0851 Docusate Sodium 100 MG DAILY NEEDED PRN 12/12 1715 AC PO Escitalopram Oxalate 10 MG DAILY 12/13 1000 AC 12/21 PO 0851 Gabapentin 300 MG DAILY 12/13 1000 AC 12/21 PO 0851 Ipratropium [place] 2.5 ML EVERY 4 HRS/AWAKE 12/14 1200 AC 12/21 INH 1147 Losartan Potassium 100 MG DAILY 12/13 1000 AC 12/16 PO 1044 Meropenem 1 GM Q8 12/13 1400 DC 12/21 IV 0521 Metoprolol Tartrate 25 MG BID 12/13 2200 AC 12/18 PO 1049 Mirtazapine 15 MG QPM 12/15 2200 AC 12/20 PO 2118 Morphine Sulfate 2 MG DAILY NEEDED PRN 12/15 0945 AC 12/20 IV 2152 Omeprazole 20 MG DAILY AC 12/14 0700 AC 12/21 PO 0521 Ondansetron HCl 4 MG Q8P PRN 12/12 171 AC IV Oxycodone/ 1 TAB Q4P PRN 12/12 1715 AC 12/21 Acetaminophen PO 0852 Oxycodone/ 2 TAB Q4P PRN 12/12 1715 AC 12/21 Acetaminophen PO 0234 Polyethylene Glycol 17 GM DAILY PRN 12/18 0945 AC 12/20 PO 1221 Senna 187 MG AT BEDTIME 12/18 220 AC 12/20 PO 2118 Sodium Polystyrene 60 ML ONCE ONE 12/21 0745 DC Sulfonate PO 12/21 0746 Results Last 48 Hrs of Labs/Mics: Laboratory Tests 12/21/16 0500: Anion Gap 4 L, Estimated GFR > 60, Glucose 96, Calcium 8.8, Phosphorus 3.3, Magnesium 2.2, Total Bilirubin 0.7, AST 20, ALT 41, Albumin 2.4 L, Cortisol AM Sample 4.1 L, CBC w Diff NO MAN DIFF REQ, RBC 3.74 L, MCV 94.8, MCH 30.9, RDW 14.7 H, MPV 8.6, Gran % 75.8 H, Lymphocytes % 12.5 L, Monocytes % 9.0, Eosinophils % 2.2, Basophils % 0.5, Absolute Granulocytes 6.0, Absolute Lymphocytes 1.0 L, Absolute Monocytes 0.7 H, Absolute Eosinophils 0.2, Absolute Basophils 0, PUBS MCHC 32.6 L 12/20/16 1400: APTT Cancelled 12/20/16 0430: Anion Gap 6, Estimated GFR > 60, Glucose 90, Calcium 8.7, Phosphorus 3.4, Magnesium 2.0, Total Bilirubin 0.8, AST 23, ALT 47, Albumin 2.4 L, CBC w Diff NO MAN DIFF REQ, RBC 3.83 L, MCV 94.4, MCH 30.9, RDW 14.7 H, MPV 8.3, Gran % 71.0, Lymphocytes % 17.5 L, Monocytes % 8.6, Eosinophils % 2.2, Basophils % 0.7 , Absolute Granulocytes 6.0, Absolute Lymphocytes 1.5, Absolute Monocytes 0.7 H , Absolute Eosinophils 0.2, Absolute Basophils 0.1, PUBS MCHC 32.8 L 12/20/16 0205: APTT 65 H 12/19/16 1810: APTT 47 H Recent Imaging Studies: Chest x-ray: 1. PICC line catheter in the mid SVC. No pneumothorax. 2. Chest findings consistent with obstructive lung disease with near complete resolution of previously seen right upper lobe opacity. 3. Mild subsegmental atelectasis in left lung base. Assessment/Plan Assessment/Plan Assessment: 1. Atrial fibrillation 2. Acute diastolic heart failure status post vascular procedure Plan: * Would keep off diuretics for now given recent hypotension * Continue Eliquis * Continue other cardiac medications Continue telemetry? Yes
--- NOTE | 2016-12-21 15:31 | PN- Pulmonary ---
Subjective HPI/Critical Care Issues: Patient is awake and alert. She reports feeling improved since her surgery. Her pain is better controlled. There were no overnight events reported. Objective Current Medications: Current Medications Sig/Chris Start time Last Medication Dose Route Stop Time Status Admin Acetaminophen 650 MG Q6PRN PRN 12/12 1715 AC 12/16 PO 2002 Albuterol Sulfate 3 ML EVERY 4 HRS/AWAKE 12/14 1200 AC 12/21 INH 0817 Apixaban 5 MG BID 12/20 1000 AC 12/21 PO 0851 Atorvastatin Calcium 20 MG 1700 12/13 1700 AC 12/20 PO 1638 Bisacodyl 10 MG DAILY PRN 12/20 1030 AC 12/21 [place] 0852 Bisacodyl 5 MG DAILY 12/20 1016 AC 12/21 PO 0851 Docusate Sodium 100 MG DAILY NEEDED PRN 12/12 1715 AC PO Escitalopram Oxalate 10 MG DAILY 12/13 1000 AC 12/21 PO 0851 Gabapentin 300 MG DAILY 12/13 1000 AC 12/21 PO 0851 Heparin Sodium 25,000 UNIT Q24H 12/19 1200 DC 12/20 (Porcine) IV 12/20 1100 0310 Sodium Chloride 500 ML Ipratropium [place] 2.5 ML EVERY 4 HRS/AWAKE 12/14 1200 AC 12/21 INH 0817 Losartan Potassium 100 MG DAILY 12/13 1000 AC 12/16 PO 1044 Meropenem 1 GM Q8 12/13 1400 AC 12/21 IV 0521 Metoprolol Tartrate 25 MG BID 12/13 2200 AC 12/18 PO 1049 Mirtazapine 15 MG QPM 12/15 2200 AC 12/20 PO 2118 Morphine Sulfate 2 MG DAILY NEEDED PRN 12/15 0945 AC 12/20 IV 2152 Omeprazole 20 MG DAILY AC 12/14 0700 AC 12/21 PO 0521 Ondansetron HCl 4 MG Q8P PRN 12/12 171 AC IV Oxycodone/ 1 TAB Q4P PRN 12/12 171 AC 12/21 Acetaminophen PO 0852 Oxycodone/ 2 TAB Q4P PRN 12/12 1715 AC 12/21 Acetaminophen PO 0234 Polyethylene Glycol 17 GM DAILY PRN 12/18 0945 AC 12/20 PO 1221 Senna 187 MG AT BEDTIME 12/18 2200 AC 12/20 PO 2118 Sodium Chloride 500 ML BOLUS ONE 12/20 1030 DC 12/20 IV 12/20 1129 1034 Sodium Polystyrene 60 ML ONCE ONE 12/21 0745 DC Sulfonate PO 12/21 0746 Vital Signs & I&O Last 24 Hrs of Vitals and I&O: Vital Signs Date Time Temp Pulse Resp B/P B/P Pulse O2 O2 Flow FiO2 Mean Ox Delivery Rate 12/21 0000 98 Nasal 2.0L Cannula 12/20 2300 97.8 100 24 126/68 98 Nasal 2.0L Cannula 12/20 2153 90 146/84 12/20 1650 97 Nasal 2.0L Cannula 12/20 1600 96 Nasal 2.0L Cannula 12/20 1600 98.0 111 20 140/80 96 Nasal 2.0L Cannula 12/20 1400 120/70 12/20 1312 Nasal 3.0L Cannula 12/20 1140 100 122/70 12/20 1033 102 105/60 Intake & Output 12/21 1600 12/21 0800 12/21 0000 Intake Total 240 200 Output Total 1315 1450 Balance -1075 -1250 Intake, Oral 240 200 Output, Urine 1315 1450 Physical Exam General Appearance: awake, comfortable, thin, chronically ill Head: atraumatic Neck: supple Respiratory: severely diminished breath sounds with basilar crackles Cardiovascular: regular rate/rhythm (heart sounds distant) Gastrointestinal: normal bowel sounds, soft, non-tender Extremities: no edema, right lower extremity bandages in place Skin: warm/dry Impression/Plan Impression/Plan Impression/Plan: 1. Postoperative hypoxemia, secondary to pulmonary edema, bilateral effusions and atelectasis. 2. Status post right LE venogram for PAD, right lower extremity non-healing ulcer. 3. History of osteomyelitis, on meropenem. 4. Severe COPD. 5. Atrial fibrillation, on IV heparin. 6. Nonsustained ventricular tachycardia. Recommendations: * Taper oxygen for saturation greater than 92%. * Continue to hold Lasix. * Continue Eliquis * PT input appreciated. * Increase activity, out of bed to chair. * Continue meropenem for osteomyelitis - duration of therapy? * Incentive spirometry to continue. * TRC for [id number] nebulizer treatments. * Continue with pain control. * NSVT- cardiology following. Will continue with electrical repletion. Continue to monitor for now. * Case management to look for short-term rehabilitation as the patient is weak and will need significant physical therapy.
[2016-12-21 16:00] VITALS: BP 110/60
[2016-12-21 23:40] VITALS: BP 104/64
[2016-12-22 07:48] LABS: ABSOLUTE BASOPHIL COUNT 0.1 /CUMM (0.0-0.2); ABSOLUTE EOSINOPHIL COUNT 0.2 /CUMM (0.0-0.7); ABSOLUTE GRANULOCYTE CT 7.2 /CUMM (1.4-6.5); ABSOLUTE MONOCYTE COUNT 0.8 /CUMM (0.10-0.60); BASOPHIL % 0.6 % (0.0-2.0); EOSINOPHIL % 2.7 % (0-5); GRANULOCYTE % 77.4 % (42.2-75.2); HEMATOCRIT 36.6 % (37-47); MEAN CORPUSCULAR HGB 31.2 PG (27.0-31.0); MEAN CORPUSCULAR HGB CONC 32.7 G/DL (33.0-37.0); MEAN CORPUSCULAR VOLUME 95.3 FL (81.0-99.0); MEAN PLATELET VOLUME 8.6 FL (7.4-10.4); PLATELET COUNT 454 /CUMM (130-400); RBC DISTRIBUTION WIDTH 14.5 % (11.5-14.5); RED BLOOD CELL CT 3.84 /CUMM (4.20-5.40); WHITE BLOOD CELL COUNT 9.3 /CUMM (4.8-10.8)
[2016-12-22 08:00] VITALS: BP 132/70
--- NOTE | 2016-12-22 08:16 | Transfer of Care Summary ---
Hospital Course Course Hospital Course: Ms. Mcneal is 80-year-old female with past medical history significant for hypertension, hyperlipidemia, atrial fibrillation on Eliquis, TIA, advanced COPD , current smoker, severe PAD s/p femoral bypass in January of 2014, chronic venous stasis ulcer and atherosclerotic ulceration of right LE who was admitted for postoperative hypoxemia following an elective Rt. lower extremity venogram on 12/12/16 Medical consultation was obtained on 12/13/16 due to desaturation to 83% on room air POD#1, patient continued to have low saturation, was transferred to ICU for close monitoring. Acute hypoxemic respiratory failure -Patient's baseline saturation in the low 90s, desat after the procedure to 83% on room air. Chest x-ray showed hyperinflated lungs with atelectasis versus scarring in both lung bases and the upper lobes, no acute consolidation, prominent pulmonary vascularity was seen. Oxygen supplementation was started, recommendation to keep O2> 92% on rest, O2> 88% on exertion. Despite the fact that patient was on IV heparin (while off eleiquis) prior to procedure, PE was still suspected, CTA was obtained negative for PE. CT chest was obtained as well that revealed pleural effusion (Rt > Lt), while waiting for IR to proceed with thoracentesis, patient was on Lasix 40 IV BID with respirtaory improvement, plan for thoracentesis wasn't successful as bedside chest ultrasound didn't show any enough fluid to be taped. Patient's respiratory situation improved significantly, incentive spirometry, TRC (albuterol and atrovent) were on board, oxygen was tapered to 2 L with saturation above 92%, patient was transferred to telemetry floor. Chest x-ray PA and lateral was obatined 12/20 1. PICC line catheter in the mid SVC. No pneumothorax. 2. Chest findings consistent with obstructive lung disease with near complete resolution of previously seen right upper lobe opacity. 3. Mild subsegmental atelectasis in left lung base. Osteomyelitis Patient has PMH of chronic ulcer on right pretibial area on IV meropenem that was started 1 week prior to admission, patient has PICC line. Please follow vascular recommendation regarding antibiotic course. Cardiovascular History of atrial fibrillation on elequis, was on IV heparin prior to angiogram, eleiquis was restarted on 12/20/16. Patient was on Lasix 40 mg twice a day for evidence of volume overload (bilateral chest crackles) improved, IV Lasix was discontinued after episodes of hypotension. Antihypertensive medications were held, patient received total of 3 boluses of 500 mL, systolic went down to 80, improved with IV fluid. Orthostatic measurement positive. Telemetry record for NSVT 14 runs asymptomatic, cardiology recommendation was obtained. -HTN: lopressor 25mg bid, cozaar 100mg daily -HLD: c/w lipitor 20mg daily Metabolic: -Hyperkalemia, AM cortisol was obtained 4.1, no recommendation for father investigation. Please follow electrolytes daily. Replete electrolytes as needed. Alimentary: -Heart healthy diet, nutritional consultation obtained given history of chronic wound. Neurological: -History of TIA, aspirin 81 milligram daily -Depression: c/w remeron, lexapro Skin: -Chronic nonhealing ulcer of the right leg s/p right leg angiogram on 12/12/2016 : Continue wound care (with Adaptic and gauze once daily per vascular recommendation) DVT prophylaxis Elequis Code full Diet heart healthy, Ensure BID Consultation pulmonary, vascular, PT Assessment/Plan: Please see above
--- NOTE | 2016-12-22 08:28 | PN- Housestaff ---
JERSON GONZALEZ,[facility] 12/22/16 0828: Subjective Follow-up For: -Postoperative hypoxemia, PE was ruled out -PAD S/P right LE venogram -Right lower extremity non-healing ulcer -History of osteomyelitis, on meropenem -Severe COPD Subjective: Patient reports feeling about the same with respect to her breathing status. She also reports pain in her right leg in the region of the ulcer. She denies any dizziness. ROS is otherwise negative. Review of Systems Constitutional: Reports: see HPI. Objective Last 24 Hrs of Vital Signs/I&O Vital Signs Date Time Temp Pulse Resp B/P B/P Pulse O2 O2 Flow FiO2 Mean Ox Delivery Rate 12/22 0800 98.1 91 20 132/70 94 Nasal 2.0L Cannula 12/22 0000 Nasal 2.0L Cannula 12/21 2340 97.8 97 18 104/64 94 Room Air 12/21 2141 94 100/68 12/21 2055 95 Nasal 1.0L Cannula 12/21 1600 96 Nasal 2.0L Cannula 12/21 1600 98.2 106 18 110/60 95 Nasal 2.0L Cannula 12/21 1149 94 Nasal 1.0L Cannula Intake & Output 12/22 1600 12/22 0800 12/22 0000 Intake Total 300 720 Output Total 950 251 Balance -650 469 Intake, IV 300 Intake, Oral 720 Output, Other 1 Output, Urine 950 250 Physical Exam General Appearance: Alert, Oriented X3, Cooperative, No Acute Distress Cardiovascular: Regular Rate, Normal S1, Normal S2 Lungs: Clear to Auscultation, Normal Air Movement Abdomen: Soft, No Tenderness, No Hepatospenomegaly Neurological: Normal Speech, Strength at 5/5 X4 Ext, Normal Tone, Sensation Intact Extremities: Bandage present on the right castell[place] with no erythema around the area of the bandage Current Medications: Current Medications Sig/Chris Start time Last Medication Dose Route Stop Time Status Admin Acetaminophen 650 MG Q6PRN PRN 12/12 1715 AC 12/16 PO 2001 Albuterol Sulfate 3 ML EVERY 4 HRS/AWAKE 12/14 1200 AC 12/22 INH 0904 Apixaban 5 MG BID 12/20 1000 AC 12/21 PO 2141 Aspirin 81 MG DAILY 12/21 1321 AC 12/21 PO 1410 Atorvastatin Calcium 20 MG 1700 12/13 1700 AC 12/21 PO 1609 Bisacodyl 10 MG DAILY PRN 12/20 1030 AC 12/21 [place] 0852 Bisacodyl 5 MG DAILY 12/20 1016 AC 12/21 PO 0851 Docusate Sodium 100 MG DAILY NEEDED PRN 12/12 1715 AC PO Escitalopram Oxalate 10 MG DAILY 12/13 1000 AC 12/21 PO 0851 Gabapentin 300 MG DAILY 12/13 1000 AC 12/21 PO 0851 Ipratropium [place] 2.5 ML EVERY 4 HRS/AWAKE 12/14 1200 AC 12/22 INH 0904 Losartan Potassium 100 MG DAILY 12/13 1000 AC 12/16 PO 1044 Meropenem 1 GM Q8 12/21 2245 AC 12/22 IV 0624 Meropenem 1 GM Q8 12/13 1400 DC 12/21 IV 0521 Metoprolol Tartrate 25 MG BID 12/13 2200 AC 12/18 PO 1049 Mirtazapine 15 MG QPM 12/15 2200 AC 12/21 PO 2141 Morphine Sulfate 2 MG DAILY NEEDED PRN 12/15 0945 AC 12/21 IV 1610 Omeprazole 20 MG DAILY AC 12/14 0700 AC 12/22 PO 0624 Ondansetron HCl 4 MG Q8P PRN 12/12 1715 AC IV Oxycodone/ 1 TAB Q4P PRN 12/12 1715 AC 12/22 Acetaminophen PO 0837 Oxycodone/ 2 TAB Q4P PRN 12/12 1715 AC 12/21 Acetaminophen PO 2032 Polyethylene Glycol 17 GM DAILY PRN 12/18 0945 AC 12/20 PO 1221 Senna 187 MG AT BEDTIME 12/18 2200 AC 12/21 PO 2141 Sodium Chloride 1,000 ML Q13H 12/22 0400 AC 12/22 IV 0412 Last 24 Hrs of Lab/Zachary Results Last 24 Hrs of Labs/Mics: Laboratory Tests 12/22/16 0630: Anion Gap 6, Estimated GFR > 60, Glucose 95, Calcium 8.8, Phosphorus 3.3, Magnesium 2.2, Total Bilirubin 0.6, AST 21, ALT 35, Albumin 2.5 L, CBC w Diff NO MAN DIFF REQ, RBC 3.84 L, MCV 95.3, MCH 31.2 H, RDW 14.5, MPV 8.6, Gran % 77.4 H, Lymphocytes % 10.7 L, Monocytes % 8.6, Eosinophils % 2.7, Basophils % 0.6, Absolute Granulocytes 7.2 H, Absolute Lymphocytes 1.0 L, Absolute Monocytes 0.8 H, Absolute Eosinophils 0.2, Absolute Basophils 0.1, PUBS MCHC 32.7 L Lines/Diet/Fluids Lines: peripheral lines Assessment/Plan Assessment: 80-year-old lady who is an every day smoker with pmh of HTN, HLD, A.fib on Eliquis, severe PAD s/p femoral bypass in January of 2014, venous stasis ulcer, TIA , CVA, polio, was admitted for postoperative hypoxemia following an elective Rt. lower extremity venogram for Rt. leg PAD on 12/12/16 likely from pleural effusions and bibasilar atelectasis. Problem List: 1. Postoperative hypoxemia, secondary to pulmonary edema, bilateral effusions and atelectasis. 2. Status post right LE venogram for PAD, right lower extremity non-healing ulcer. 3. History of osteomyelitis, on meropenem. 4. Severe COPD. 5. Atrial fibrillation, on Eliquis. 6. Nonsustained ventricular tachycardia. 7. Hypertension Problem List: - Continue to monitor on telemetry - Patient was hypotensive to SBP 80's yesterday and she was started on fluids and her home diuretics were held. - Orthostatics pending, will be done after current bag of NS - Patient is being followed by Vascular surgery for management of osteomyelitis. Duration of Meropenem treatment is unknow and will have to be clarified with Vascular Sugery. - No overnight telemetry events noted. -DVT prophylaxis Eliquis Code full Diet heart healthy Consultation pulmonary, vascular, PT Problem List: 1. Postoperative hypoxemia Pain Ratin Pain Location: RLE Pain Goal: Pain 4 or less Pain Plan: Per EMR Tomorrow's Labs & Rationales: None required DVT/Prophylaxis: pharmacological JOE GONZALEZ,ROBLES 12/22/16 1322: Attending MD Review Statement Attending Statement Attending MD Statement: examined this patient, discuss w/resident/PA/PRODUCT GRADER, agreed w/resident/PA/PRODUCT GRADER, reviewed EMR data (avail), discussed with nursing, discussed with case mgmt, reviewed images, amended to note Attending Assessment/Plan: Patient seen and examined, she was complaining of feeling tired. Her blood pressure was running low this morning. Patient was transferred out of ICU. Vital Signs Date Time Temp Pulse Resp B/P B/P Pulse O2 O2 Flow FiO2 Mean Ox Delivery Rate 12/22 1156 98 92/54 12/22 1156 98 92/54 12/22 0800 98.1 91 20 132/70 94 Nasal 2.0L Cannula 12/22 0000 Nasal 2.0L Cannula 12/21 2340 97.8 97 18 104/64 94 Room Air 12/21 2141 94 100/68 12/21 2055 95 Nasal 1.0L Cannula 12/21 1600 96 Nasal 2.0L Cannula 12/21 1600 98.2 106 18 110/60 95 Nasal 2.0L Cannula on exam; aox3, nad cv; s1,s2, rrr resp; clear abd; soft, nt, bs+ ext; no edema with drerssing on rle. Laboratory Tests 12/22 0630 Chemistry Sodium (137 - 145 mmol/L) 137 Potassium (3.5 - 5.1 mmol/L) 4.9 Chloride (98 - 107 mmol/L) 99 Carbon Dioxide (22 - 30 mmol/L) 32 H Anion Gap (5 - 16) 6 BUN (7 - 17 mg/dL) 22 H Creatinine (0.5 - 1.0 mg/dL) 0.7 Estimated GFR (>60 ml/min) > 60 Glucose (65 - 99 mg/dL) 95 Calcium (8.4 - 10.2 mg/dL) 8.8 Phosphorus (2.5 - 4.5 mg/dL) 3.3 Magnesium (1.6 - 2.3 mg/dL) 2.2 Total Bilirubin (0.2 - 1.3 mg/dL) 0.6 AST (14 - 36 U/L) 21 ALT (9 - 52 U/L) 35 Albumin (3.5 - 5.0 g/dL) 2.5 L Hematology CBC w Diff NO MAN DIFF REQ WBC (4.8 - 10.8 /CUMM) 9.3 RBC (4.20 - 5.40 /CUMM) 3.84 L Hgb (12.0 - 16.0 G/DL) 11.9 L Hct (37 - 47 %) 36.6 L MCV (81.0 - 99.0 FL) 95.3 MCH (27.0 - 31.0 PG) 31.2 H RDW (11.5 - 14.5 %) 14.5 Plt Count (130 - 400 /CUMM) 454 H MPV (7.4 - 10.4 FL) 8.6 Gran % (42.2 - 75.2 %) 77.4 H Lymphocytes % (20.5 - 51.1 %) 10.7 L Monocytes % (1.7 - 9.3 %) 8.6 Eosinophils % (0 - 5 %) 2.7 Basophils % (0.0 - 2.0 %) 0.6 Absolute Granulocytes (1.4 - 6.5 /CUMM) 7.2 H Absolute Lymphocytes (1.2 - 3.4 /CUMM) 1.0 L Absolute Monocytes (0.10 - 0.60 /CUMM) 0.8 H Absolute Eosinophils (0.0 - 0.7 /CUMM) 0.2 Absolute Basophils (0.0 - 0.2 /CUMM) 0.1 PUBS MCHC (33.0 - 37.0 G/DL) 32.7 L A/P; 81 y/o F with pmh sig for HTN, HLD, A.fib on Eliquis, severe PAD s/p femoral bypass in January of 2014, venous stasis ulcer, TIA, CVA, polio, was admitted for postoperative hypoxemia following an elective Rt. lower extremity venogram/ angiogram for Rt. lle PAD on 12/12/16 likely from pleural effusions (ultrasound did not show enough fluid to be tapped) and bibasilar atelectasis. Patient has also been kept on IV meropenem from asthma surgery for all stimuli does. No culture results are available to guide antibiotic therapy. Recommend getting infectious disease on board. Patient was hypotensive this morning, the with IV fluids. Her losartan was held but she did receive beta elton this morning. If she remains hypotensive, we will have to hold the beta elton as well. Continue other current medications. Patient on eliquis for DVT prophylaxis. She is working with physical therapy.
--- NOTE | 2016-12-22 12:05 | PN- Cardiology ---
Subjective Subjective: . No chest pain. No palpitations. No nausea vomiting. Objective Vital Signs and I&Os Vital Signs Date Time Temp Pulse Resp B/P B/P Pulse O2 O2 Flow FiO2 Mean Ox Delivery Rate 12/22 1156 98 92/54 12/22 1156 98 92/54 12/22 0800 98.1 91 20 132/70 94 Nasal 2.0L Cannula 12/22 0000 Nasal 2.0L Cannula 12/21 2340 97.8 97 18 104/64 94 Room Air 12/21 2141 94 100/68 12/21 2055 95 Nasal 1.0L Cannula 12/21 1600 96 Nasal 2.0L Cannula 12/21 1600 98.2 106 18 110/60 95 Nasal 2.0L Cannula Intake & Output 12/22 1600 12/22 0800 12/22 0000 12/21 1600 12/21 0800 12/21 0000 Intake Total 300 720 450 240 200 Output Total 950 600 536 4986 1450 Balance -650 469 100 -1075 -1250 Intake, IV 300 0 Intake, Oral 720 450 240 200 Number 1 Bowel Movements Output, Other 1 Output, Urine 950 082 163 5136 1450 Physical Exam: Gen: NAD HEENT: normal Lungs: Scattered rales bilaterally, normal resp. effort Heart: RRR, S1, S2, no murmurs Abdomen: Soft, nontender, no masses Extremities: No clubbing, cyanosis, or edema. Neuro: Alert and oriented x 3, cranial nerves intact Current Medications: Current Medications Sig/Chris Start time Last Medication Dose Route Stop Time Status Admin Acetaminophen 650 MG Q6PRN PRN 12/12 1715 AC 12/16 PO 2001 Albuterol Sulfate 3 ML EVERY 4 HRS/AWAKE 12/14 1200 AC 12/22 INH 0904 Apixaban 5 MG BID 12/20 1000 AC 12/22 PO 1127 Aspirin 81 MG DAILY 12/21 1321 AC 12/22 PO 1127 Atorvastatin Calcium 20 MG 1700 12/13 1700 AC 12/21 PO 1609 Bisacodyl 10 MG DAILY PRN 12/20 1030 AC 12/21 [place] 0852 Bisacodyl 5 MG DAILY 12/20 1016 AC 12/21 PO 0851 Docusate Sodium 100 MG DAILY NEEDED PRN 12/12 1715 AC PO Escitalopram Oxalate 10 MG DAILY 12/13 1000 AC 12/22 PO 1127 Gabapentin 300 MG DAILY 12/13 1000 AC 12/22 PO 1128 Ipratropium [place] 2.5 ML EVERY 4 HRS/AWAKE 12/14 1200 AC 12/22 INH 0904 Losartan Potassium 100 MG DAILY 12/13 1000 AC 12/16 PO 1044 Meropenem 1 GM Q8 12/21 2245 AC 12/22 IV 0624 Metoprolol Tartrate 25 MG BID 12/13 2200 AC 12/22 PO 1156 Mirtazapine 15 MG QPM 12/15 2200 AC 12/21 PO 2141 Morphine Sulfate 2 MG DAILY NEEDED PRN 12/15 0945 AC 12/21 IV 1610 Omeprazole 20 MG DAILY AC 12/14 0700 AC 12/22 PO 0624 Ondansetron HCl 4 MG Q8P PRN 12/12 171 AC IV Oxycodone/ 1 TAB Q4P PRN 12/12 171 AC 12/22 Acetaminophen PO 0837 Oxycodone/ 2 TAB Q4P PRN 12/12 1715 AC 12/21 Acetaminophen PO 2032 Polyethylene Glycol 17 GM DAILY PRN 12/18 0945 AC 12/20 PO 1221 Senna 187 MG AT BEDTIME 12/18 220 AC 12/21 PO 2141 Sodium Chloride 1,000 ML Q13H 12/22 0400 AC 12/22 IV 0412 Results Last 48 Hrs of Labs/Mics: Laboratory Tests 12/22/16 0630: Anion Gap 6, Estimated GFR > 60, Glucose 95, Calcium 8.8, Phosphorus 3.3, Magnesium 2.2, Total Bilirubin 0.6, AST 21, ALT 35, Albumin 2.5 L, CBC w Diff NO MAN DIFF REQ, RBC 3.84 L, MCV 95.3, MCH 31.2 H, RDW 14.5, MPV 8.6, Gran % 77.4 H, Lymphocytes % 10.7 L, Monocytes % 8.6, Eosinophils % 2.7, Basophils % 0.6, Absolute Granulocytes 7.2 H, Absolute Lymphocytes 1.0 L, Absolute Monocytes 0.8 H, Absolute Eosinophils 0.2, Absolute Basophils 0.1, PUBS MCHC 32.7 L 12/21/16 0500: Anion Gap 4 L, Estimated GFR > 60, Glucose 96, Calcium 8.8, Phosphorus 3.3, Magnesium 2.2, Total Bilirubin 0.7, AST 20, ALT 41, Albumin 2.4 L, Cortisol AM Sample 4.1 L, CBC w Diff NO MAN DIFF REQ, RBC 3.74 L, MCV 94.8, MCH 30.9, RDW 14.7 H, MPV 8.6, Gran % 75.8 H, Lymphocytes % 12.5 L, Monocytes % 9.0, Eosinophils % 2.2, Basophils % 0.5, Absolute Granulocytes 6.0, Absolute Lymphocytes 1.0 L, Absolute Monocytes 0.7 H, Absolute Eosinophils 0.2, Absolute Basophils 0, PUBS MCHC 32.6 L 12/20/16 1400: APTT Cancelled Assessment/Plan Assessment/Plan Assessment: 1. Atrial fibrillation 2. Acute diastolic heart failure status post vascular procedure 3. Recent hypotension, improved with stopping diuretics and giving IV fluid Plan: * Would keep off diuretics for now given recent hypotension * Continue Eliquis * Continue other cardiac medications * Monitor for evidence of recurrent CHF. Continue telemetry? Yes
--- NOTE | 2016-12-22 15:32 | PN- Pulmonary ---
Subjective HPI/Critical Care Issues: Patient seen and examined this morning. She appears to be improved however has significant fatigue. She is finally in a chair with assistance of physical therapy. She claims that her breathing has improved and she is currently saturating well on 2 L nasal cannula. Objective Current Medications: Current Medications Sig/Chris Start time Last Medication Dose Route Stop Time Status Admin Acetaminophen 650 MG Q6PRN PRN 12/12 1715 AC 12/16 PO 2002 Albuterol Sulfate 3 ML BID 12/22 2200 AC INH Albuterol Sulfate 3 ML EVERY 4 HRS/AWAKE 12/14 1200 DC 12/22 INH 1333 Apixaban 5 MG BID 12/20 1000 AC 12/22 PO 1127 Aspirin 81 MG DAILY 12/21 1321 AC 12/22 PO 1127 Atorvastatin Calcium 20 MG 1700 12/13 1700 AC 12/21 PO 1609 Bisacodyl 10 MG DAILY PRN 12/20 1030 AC 12/21 [place] 0852 Bisacodyl 5 MG DAILY 12/20 1016 AC 12/21 PO 0851 Docusate Sodium 100 MG DAILY NEEDED PRN 12/12 1715 AC PO Escitalopram Oxalate 10 MG DAILY 12/13 1000 AC 12/22 PO 1127 Gabapentin 300 MG DAILY 12/13 1000 AC 12/22 PO 1128 Ipratropium [place] 2.5 ML BID 12/22 2200 AC INH Ipratropium [place] 2.5 ML EVERY 4 HRS/AWAKE 12/14 1200 DC 12/22 INH 1333 Losartan Potassium 100 MG DAILY 12/13 1000 AC 12/16 PO 1044 Meropenem 1 GM Q8 12/21 2245 AC 12/22 IV 1409 Metoprolol Tartrate 25 MG BID 12/13 2200 AC 12/22 PO 1156 Mirtazapine 15 MG QPM 12/15 2200 AC 12/21 PO 2141 Morphine Sulfate 2 MG DAILY NEEDED PRN 12/15 0945 AC 12/22 IV 1419 Omeprazole 20 MG DAILY AC 12/14 0700 AC 12/22 PO 0624 Ondansetron HCl 4 MG Q8P PRN 12/12 1715 AC IV Oxycodone/ 1 TAB Q4P PRN 12/12 1715 AC 12/22 Acetaminophen PO 1230 Oxycodone/ 2 TAB Q4P PRN 12/12 1715 AC 12/21 Acetaminophen PO 203 Patient Medication 1 ED .STK-MED ONE 12/22 1412 DC Teaching ED 12/22 1413 Polyethylene Glycol 17 GM DAILY PRN 12/18 0945 AC 12/20 PO 1221 Senna 187 MG AT BEDTIME 12/18 2199 AC 12/21 PO 2141 Sodium Chloride 1,000 ML Q13H 12/22 0400 12/22 IV 0412 Vital Signs & I&O Last 24 Hrs of Vitals and I&O: Vital Signs Date Time Temp Pulse Resp B/P B/P Pulse O2 O2 Flow FiO2 Mean Ox Delivery Rate 12/22 1336 95 Nasal 2.0L Cannula 12/22 1156 98 92/54 12/22 1156 98 92/54 12/22 0800 98.1 91 20 132/70 94 Nasal 2.0L Cannula 12/22 0000 Nasal 2.0L Cannula 12/21 2340 97.8 97 18 104/64 94 Room Air 12/21 2141 94 100/68 12/21 2055 95 Nasal 1.0L Cannula 12/21 1600 96 Nasal 2.0L Cannula 12/21 1600 98.2 106 18 110/60 95 Nasal 2.0L Cannula Intake & Output 12/22 1600 12/22 0800 12/22 0000 Intake Total 300 720 Output Total 950 251 Balance -650 469 Intake, IV 300 Intake, Oral 720 Output, Other 1 Output, Urine 950 250 Exam Other Physical Findings: Gen - alert and awake HEENT - NCAT CVS - S1, S2, no murmurs, rubs or gallops Lungs - diminished breath sounds and prolonged end expiratory phase Abdomen - soft, non-tender, bs+ Ext - lower extremity dressing is intact Results Last 24 Hrs of Lab Results: Laboratory Tests 12/22/16 0630: Anion Gap 6, Estimated GFR > 60, Glucose 95, Calcium 8.8, Phosphorus 3.3, Magnesium 2.2, Total Bilirubin 0.6, AST 21, ALT 35, Albumin 2.5 L, CBC w Diff NO MAN DIFF REQ, RBC 3.84 L, MCV 95.3, MCH 31.2 H, RDW 14.5, MPV 8.6, Gran % 77.4 H, Lymphocytes % 10.7 L, Monocytes % 8.6, Eosinophils % 2.7, Basophils % 0.6, Absolute Granulocytes 7.2 H, Absolute Lymphocytes 1.0 L, Absolute Monocytes 0.8 H, Absolute Eosinophils 0.2, Absolute Basophils 0.1, PUBS MCHC 32.7 L Impression/Plan Impression/Plan Impression/Plan: Impression 81-year-old woman * Atrial fibrillation, diastolic heart failure, recent hypotension that is improved * Postoperative hypoxemia secondary to pulmonary edema now improved also with atelectasis and effusions * History of osteomyelitis on antibiotics * Severe COPD Plan - Antibiotics per primary team -Taper oxygen for saturation above 92% -Follow up cardiology recommendations -Continue Eliquis -Continue incentive spirometry, out of bed, physical therapy -TRC and nebs
[2016-12-22 16:12] VITALS: BP 100/58
--- NOTE | 2016-12-22 18:15 | Cons- Infect Disease ---
General Information and HPI Consulting Request Date of Consult: 12/22/16 Requested By: JOE GONZALEZ,ROBLES Reason for Consult: Osteomyelitis of the right leg Source of Information: patient, old records History of Present Illness: This is a 81-year-old woman with a history of hypertension, atrial fibrillation, maintained on Eliquis, status post CVA and peripheral vascular disease, status post left femoropopliteal bypass over 3 years prior to admission, with a chronic right pretibial ulcer, begun on Meropenem 1 week prior to admission by Dr. Janie Sparks, an infectious disease physician at [facility], based on a positive bone scan and a superficial culture positive for Pseudomonas, with no bone biopsy or debridement performed, admitted on December 12 after an angioplasty of the right external iliac artery, right SFA and popliteal artery and placement of 3 stents in the right SFA. Postop she was placed on Heparin and continued on Meropenem via a PICC that had been placed 1 week prior to admission. She developed increased respiratory distress, felt to be secondary to atelectasis, with a possible component of CHF. Her respiratory status has improved since admission. She has remained afebrile and white blood cell count has remained normal since admission. She continues to complain of pain in the right pretibial area but offers no other complaints. Allergies/Medications Allergies: Coded Allergies: cefepime (? 12/07/16) doxycycline (? 12/07/16) sulfamethoxazole (From BACTRIM) (? 12/07/16) trimethoprim (From BACTRIM) (? 12/07/16) Home Med List: Apixaban (Eliquis) 5 MG TABLET 1 TAB PO BID A FIB (Reported) Atorvastatin Calcium (Lipitor) 20 MG TABLET 1 TAB PO DAILY CHOLESTEROL ( Reported) Clonazepam 0.25 MG TAB.RAPDIS 1 TAB PO BID ANXIETY (Reported) TAKES 0.5 AT BEDTIME Ergocalciferol (Vitamin D2) (Vitamin D2) 50,000 UNIT CAPSULE 1 CAP PO QW VITAMIN D DEFICIENCY (Reported) Escitalopram Oxalate (Lexapro) 10 MG TABLET 1 TAB PO DAILY ANXIETY \ DEPRESSION (Reported) Gabapentin 300 MG CAPSULE 1 CAP PO DAILY NEUROPATHY (Reported) Losartan (Cozaar) 100 MG TABLET 1 TAB PO DAILY HTN (Reported) Meropenem (Merrem) 1 GRAM VIAL LEG WOUND (Reported) RUNS CONTINUOUSLY AT HOME Metoprolol Tartrate 25 MG TABLET 1 TAB PO BID A FIB (Reported) Mirtazapine (Remeron) 15 MG TABLET 1 TAB PO QPM SLEEP (Reported) Oxycodone HCl/Acetaminophen (Percocet 5-325 MG Tablet) 5 MG-325 MG TABLET 1 TAB PO Q4-6H PRN PAIN Past History Travel History Traveled to [place] past 21 day Yes Medical History Blood Transfusion Hx: No Neurological: CVA, peripheral neuropathy, polio affecting the left upper extremity EENT: cataracts Cardiovascular: AFIB, PVD Respiratory: NONE Gastrointestinal: NONE Hepatic: NONE Renal: NONE Psychiatric: anxiety, depression Endocrine: NONE Blood Disorders: NONE Cancer(s): FACIAL CANCER TREATED CADASTRAL SURVEYOR/Reproductive: NONE History of MRSA: No History of VRE: Yes History of CDIFF: No Isolation History: Contact Pneumonia Vaccine: 05/15/10 Influenza Vaccine: 05/15/13 Surgical History Surgical History: POPLITEAL FEMORAL BYPASS, bilateral iliac stents Psychosocial History Services at Home: Home Health Aide, Nursing Smoking Status: Current Some Day Smoker Review of Systems Review of Systems GI: Denies: diarrhea. All Other Systems: Reviewed and Negative Exam & Diagnostic Data Last 24 Hrs of Vital Signs/I&O Vital Signs Date Time Temp Pulse Resp B/P B/P Pulse O2 O2 Flow FiO2 Mean Ox Delivery Rate 12/22 1612 97.8 90 18 100/58 95 Nasal 2.0L Cannula 12/22 1336 95 Nasal 2.0L Cannula 12/22 1156 98 92/54 12/22 1156 98 92/54 12/22 0800 94 Nasal 2.0L Cannula 12/22 0800 98.1 91 20 132/70 94 Nasal 2.0L Cannula 12/22 0000 Nasal 2.0L Cannula 12/21 2340 97.8 97 18 104/64 94 Room Air 12/21 2141 94 100/68 12/21 2055 95 Nasal 1.0L Cannula Intake & Output 12/22 1600 12/22 0800 12/22 0000 Intake Total 1150 300 720 Output Total 500 950 251 Balance 650 -650 469 Intake, IV 550 300 Intake, Oral 600 720 Number 0 Bowel Movements Output, Other 1 Output, Urine 500 950 250 Physical Exam Other Physical Findings: She is awake and alert in no acute distress. She is afebrile. Skin reveals no rash. HEENT exam is negative. Neck is supple with no adenopathy. Lungs bibasilar crackles. Heart regular rhythm with no murmur. Abdomen is soft, nontender with positive bowel sounds. Back no CVA tenderness. Extremities right pretibial ulcer, with overlying necrosis, exquisitely tender to palpation, with no surrounding erythema; PICC in the right upper extremity with no inflammation at the site; no cyanosis, clubbing or edema of the lower extremities. Neuro left upper extremity weakness. Last 24 Hours of Lab Results: Laboratory Tests 12/22 0630 Chemistry Sodium (137 - 145 mmol/L) 137 Potassium (3.5 - 5.1 mmol/L) 4.9 Chloride (98 - 107 mmol/L) 99 Carbon Dioxide (22 - 30 mmol/L) 32 H Anion Gap (5 - 16) 6 BUN (7 - 17 mg/dL) 22 H Creatinine (0.5 - 1.0 mg/dL) 0.7 Estimated GFR (>60 ml/min) > 60 Glucose (65 - 99 mg/dL) 95 Calcium (8.4 - 10.2 mg/dL) 8.8 Phosphorus (2.5 - 4.5 mg/dL) 3.3 Magnesium (1.6 - 2.3 mg/dL) 2.2 Total Bilirubin (0.2 - 1.3 mg/dL) 0.6 AST (14 - 36 U/L) 21 ALT (9 - 52 U/L) 35 Albumin (3.5 - 5.0 g/dL) 2.5 L Hematology CBC w Diff NO MAN DIFF REQ WBC (4.8 - 10.8 /CUMM) 9.3 RBC (4.20 - 5.40 /CUMM) 3.84 L Hgb (12.0 - 16.0 G/DL) 11.9 L Hct (37 - 47 %) 36.6 L MCV (81.0 - 99.0 FL) 95.3 MCH (27.0 - 31.0 PG) 31.2 H RDW (11.5 - 14.5 %) 14.5 Plt Count (130 - 400 /CUMM) 454 H MPV (7.4 - 10.4 FL) 8.6 Gran % (42.2 - 75.2 %) 77.4 H Lymphocytes % (20.5 - 51.1 %) 10.7 L Monocytes % (1.7 - 9.3 %) 8.6 Eosinophils % (0 - 5 %) 2.7 Basophils % (0.0 - 2.0 %) 0.6 Absolute Granulocytes (1.4 - 6.5 /CUMM) 7.2 H Absolute Lymphocytes (1.2 - 3.4 /CUMM) 1.0 L Absolute Monocytes (0.10 - 0.60 /CUMM) 0.8 H Absolute Eosinophils (0.0 - 0.7 /CUMM) 0.2 Absolute Basophils (0.0 - 0.2 /CUMM) 0.1 PUBS MCHC (33.0 - 37.0 G/DL) 32.7 L Last 24 Hours of Zachary Results: No cultures Diagnostic Data Recent Imaging Findings: Chest x-ray December 20, personally reviewed, reveals mild subsegmental atelectasis in the left lung base and evidence of obstructive lung disease Assessment/Plan Assessment/Plan Impression: This is a 81-year-old woman with peripheral vascular disease, with a chronic right pretibial ulcer, begun on Meropenem per Dr. Janie Sparks, her infectious disease physician at [facility], 1 week prior to admission for presumed osteomyelitis, based on a positive bone scan and a superficial culture for Pseudomonas, with no bone biopsy or debridement performed, admitted on December 12 after a right leg angioplasty and stenting, with her postop course complicated by respiratory distress, which has improved, and with temperatures and white blood cell count remaining normal on Meropenem. Have discussed patient with Dr. Janie Sparks who had planned on treating patient for 4 weeks and plans to follow her as an outpatient. At this point further management of her presumed osteomyelitis should be continued by Dr. Sparks. Of note her wound has overlying necrosis, which may warrant further debridement. Suggestion: 1. Further management of her right leg wound per Vascular surgery 2. Follow-up with Dr. Janie Sparks upon discharge 3. Continue Meropenem until seen in outpatient follow-up by Dr. Sparks Consult Acknowledgment - Thank you for your consult request.
--- NOTE | 2016-12-22 23:08 | NUR ---
2200 FOSE OF LOPRESSOR WAS NOT GIVEN PER PT REQUEST (BP WAS 110/60). PT WAS WORRIED ABOUT HYPOTENSION. LARDER COOK SUDEEP MADE AWARE.
[2016-12-22 23:41] VITALS: BP 96/52
--- NOTE | 2016-12-23 08:25 | PN- Housestaff ---
NAZIA GONZALEZ,MARITZA 12/23/16 0825: Subjective Follow-up For: POST OPERATIVE HYPOXIA Subjective: Seen and examined at bedside. She denies any increased shortness of breath,chest pain,palpation, increased cough, fever/chills,abdominal pain or dysuria. No acute o/n event reported by nursing staff. Review of Systems Constitutional: Reports: no symptoms. Objective Last 24 Hrs of Vital Signs/I&O Vital Signs Date Time Temp Pulse Resp B/P B/P Pulse O2 O2 Flow FiO2 Mean Ox Delivery Rate 12/24 0000 Nasal 2.0L Cannula 12/23 2309 98.1 90 12 116/90 95 Nasal 2.0L Cannula 12/23 2114 84 118/60 12/23 1857 99 Nasal 3.5L Cannula 12/23 1600 Nasal 3.0L Cannula 12/23 1549 98.6 88 20 116/70 97 Nasal 4.0L Cannula 12/23 1103 96 Nasal 2.0L Cannula 12/23 1036 84 126/70 12/23 0844 98.2 97 134/90 98 Nasal 2.0L Cannula 12/23 0830 98.2 97 20 134/90 98 Nasal 2.0L Cannula 12/23 0800 98 Nasal 3.5L Cannula Intake & Output 12/24 0800 12/24 0000 12/23 1600 Intake Total 840 1260 1320 Output Total 650 500 Balance 224 832 9111 Intake, IV 600 900 600 Intake, Oral 240 360 720 Number 0 0 Bowel Movements Output, Urine 650 500 Physical Exam General Appearance: Alert, Oriented X3, Cooperative Other Physical Findings: Head: atraumatic, normal appearance Ears, Nose, Throat: normal pharynx, normal ENT inspection Neck: normal inspection, supple, full range of motion Respiratory: b/l expiratory wheezes, chest non-tender, no respiratory distress Cardiovascular: irregularly irregular Gastrointestinal: normal bowel sounds, soft, non-tender Extremities: normal inspection, normal capillary refill, normal range of motion, no edema Cranial Nerves: normal hearing, normal speech, PERRL Current Medications: Current Medications Sig/Chris Start time Last Medication Dose Route Stop Time Status Admin Acetaminophen 650 MG Q6PRN PRN 12/12 1715 AC 12/16 PO 2001 Albuterol Sulfate 3 ML BID 12/22 2200 AC 12/23 INH 1900 Apixaban 5 MG BID 12/20 1000 AC 12/23 PO 2114 Aspirin 81 MG DAILY 12/21 1321 AC 12/23 PO 1035 Atorvastatin Calcium 20 MG 1700 12/13 1700 AC 12/23 PO 1614 Bisacodyl 10 MG DAILY PRN 12/20 1030 AC 12/21 [place] 0852 Bisacodyl 5 MG DAILY 12/20 1016 AC 12/23 PO 1438 Docusate Sodium 100 MG DAILY NEEDED PRN 12/12 1715 AC PO Escitalopram Oxalate 10 MG DAILY 12/13 1000 AC 12/23 PO 1035 Gabapentin 300 MG DAILY 12/13 1000 AC 12/23 PO 1035 Ipratropium [place] 2.5 ML BID 12/22 2200 AC 12/23 INH 1900 Losartan Potassium 100 MG DAILY 12/13 1000 AC 12/23 PO 1100 Meropenem 1 GM Q8 12/21 2245 AC 12/24 IV 0601 Metoprolol Tartrate 25 MG BID 12/13 2200 AC 12/23 PO 2114 Mirtazapine 15 MG QPM 12/15 2200 AC 12/23 PO 2114 Morphine Sulfate 2 MG DAILY NEEDED PRN 12/15 0945 AC 12/23 IV 1704 Omeprazole 20 MG DAILY AC 12/14 0700 AC 12/24 PO 0601 Ondansetron HCl 4 MG Q8P PRN 12/12 1715 AC IV Oxycodone/ 1 TAB Q4P PRN 12/12 171 AC 12/22 Acetaminophen PO 2203 Oxycodone/ 2 TAB Q4P PRN 12/12 1715 AC 12/24 Acetaminophen PO 0423 Polyethylene Glycol 17 GM DAILY PRN 12/18 0945 AC 12/20 PO 1221 Senna 187 MG AT BEDTIME 12/18 220 AC 12/23 PO 2114 Sodium Chloride 1,000 ML Q13H 12/22 0400 AC 12/23 IV 1918 Last 24 Hrs of Lab/Zachary Results Last 24 Hrs of Labs/Mics: Vital Signs & I&O Last 24 Hrs of Vitals and I&O: Vital Signs Date Time Temp Pulse Resp B/P B/P Pulse O2 O2 Flow FiO2 Mean Ox Delivery Rate 12/23 1103 96 Nasal 2.0L Cannula 12/23 1036 84 126/70 12/23 0844 98.2 97 20 134/90 98 Nasal 2.0L Cannula 12/23 0830 98.2 97 20 134/90 98 Nasal 2.0L Cannula 12/23 0000 94 Nasal 3.0L Cannula 12/22 2341 97.5 77 16 96/52 93 Nasal 3.0L Cannula 12/22 2204 85 110/60 12/22 1830 94 Nasal 2.0L Cannula 12/22 1612 97.8 90 18 100/58 95 Nasal 2.0L Cannula 12/22 1600 Nasal 2.0L Cannula Intake & Output 12/23 1600 12/23 0800 12/23 0000 Intake Total 720 1200 Output Total 500 701 Balance 220 499 Intake, IV 600 600 Intake, Oral 120 600 Output, Other 1 Output, Urine 500 700 Assessment/Plan Assessment: 80-year-old lady who is an every day smoker with pmh of HTN, HLD, A.fib on Eliquis, severe PAD s/p femoral bypass in January of 2014, venous stasis ulcer, TIA , CVA, polio, was admitted for postoperative hypoxemia following an elective Rt. lower extremity venogram for Rt. leg PAD on 12/12/16 likely from pleural effusions and bibasilar atelectasis. Problem List: 1. Postoperative hypoxemia, secondary to pulmonary edema, bilateral effusions and atelectasis. 2. Status post right LE venogram for PAD, right lower extremity non-healing ulcer. 3. History of osteomyelitis, on meropenem. 4. Severe COPD. 5. Atrial fibrillation, on Eliquis. 6. Nonsustained ventricular tachycardia. 7. Hypertension Problem List: - Continue to monitor on telemetry - BP stable today, pt on 75 ml/h NS -Continue TRC/nebs and elliquis - Patient is being followed by Vascular surgery for management of osteomyelitis. Duration of ---Meropenem treatment is unknow and will have to be clarified with Vascular Sugery. Will obtain wound consult sunday -DVT prophylaxis Eliquis Code full Diet heart healthy Consultation pulmonary, vascular, PT Problem List: 1. PVD (peripheral vascular disease) 2. Postoperative hypoxemia Pain Ratin Pain Location: none Pain Goal: Remain pain free Pain Plan: per pain pathway Tomorrow's Labs & Rationales: . DANIKA GONZAELZ,[facility] 12/23/16 1322: Attending MD Review Statement Attending Statement Attending MD Statement: examined this patient, discuss w/resident/PA/EARLY CHILDHOOD ASSOCIATE, agreed w/resident/PA/EARLY CHILDHOOD ASSOCIATE, discussed with family, reviewed EMR data (avail), discussed with nursing, discussed with case mgmt, reviewed images, amended to note Attending Assessment/Plan: 81-year-old female with past medical history significant for hypertension, hyperlipidemia, A. fib on Eliquis, CVA peripheral was cooler disease status post femoral bypass, venous stasis ulcer, TIA, CVA, was initially admitted to the intensive care unit for postoperative respiratory failure following an elective right lower extremity venogram/angiogram for right lower extremity peripheral arterial disease on 12/12/2016, and has now been transferred out to the floor when her conditions got stabilized. Patient was seen and examined on the bedside and reported no active issues or complaints. Off note she was started on meropenem by his vascular surgeon/ID physician at the [facility] for presumed osteomyelitis based on positive bone scan and superficial culture for Pseudomonas with no bone biopsy are debridement performed. Patient currently has a PICC line and the plan is to complete 4 weeks of meropenem. Patient currently has a wound with overlying necrosis which might need further debridement. Will consult wound management and will continue on her current regimen for now.
[2016-12-23 08:30] VITALS: BP 134/90
[2016-12-23 08:44] VITALS: BP 134/90
--- NOTE | 2016-12-23 13:47 | PN- Pulmonary ---
Subjective HPI/Critical Care Issues: Patient seen and examined this morning. She is afebrile and hemodynamically stable. She saturating 96% on 3 L nasal cannula. Her hypotension has normalized. Objective Current Medications: Current Medications Sig/Chris Start time Last Medication Dose Route Stop Time Status Admin Acetaminophen 650 MG Q6PRN PRN 12/12 1715 AC 12/16 PO 2002 Albuterol Sulfate 3 ML BID 12/22 2200 AC 12/23 INH 1102 Albuterol Sulfate 3 ML EVERY 4 HRS/AWAKE 12/14 1200 DC 12/22 INH 1333 Apixaban 5 MG BID 12/20 1000 AC 12/23 PO 1035 Aspirin 81 MG DAILY 12/21 1321 AC 12/23 PO 1035 Atorvastatin Calcium 20 MG 1700 12/13 1700 AC 12/22 PO 1718 Bisacodyl 10 MG DAILY PRN 12/20 1030 AC 12/21 CT 0852 Bisacodyl 5 MG DAILY 12/20 1016 AC 12/21 PO 0851 Docusate Sodium 100 MG DAILY NEEDED PRN 12/12 1715 AC PO Escitalopram Oxalate 10 MG DAILY 12/13 1000 AC 12/23 PO 1035 Gabapentin 300 MG DAILY 12/13 1000 AC 12/23 PO 1035 Ipratropium [place] 2.5 ML BID 12/22 2200 AC 12/23 INH 1102 Ipratropium [place] 2.5 ML EVERY 4 HRS/AWAKE 12/14 1200 DC 12/22 INH 1333 Losartan Potassium 100 MG DAILY 12/13 1000 AC 12/16 PO 1044 Meropenem 1 GM Q8 12/21 2245 AC 12/23 IV 0650 Metoprolol Tartrate 25 MG BID 12/13 2200 AC 12/23 PO 1036 Mirtazapine 15 MG QPM 12/15 2200 AC 12/22 PO 2203 Morphine Sulfate 2 MG DAILY NEEDED PRN 12/15 0945 AC 12/22 IV 1419 Omeprazole 20 MG DAILY AC 12/14 0700 AC 12/23 PO 0701 Ondansetron HCl 4 MG Q8P PRN 12/12 1715 AC IV Oxycodone/ 1 TAB Q4P PRN 12/12 1715 AC 12/22 Acetaminophen PO 2203 Oxycodone/ 2 TAB Q4P PRN 12/12 1715 AC 12/23 Acetaminophen PO 1035 Patient Medication 1 ED .STK-MED ONE 12/22 1412 ND Teaching ED 12/22 1413 Polyethylene Glycol 17 GM DAILY PRN 12/18 0945 AC 12/20 PO 1221 Senna 187 MG AT BEDTIME 12/18 2199 AC 12/22 PO 2203 Sodium Chloride 1,000 ML Q13H 12/22 0400 AC 12/23 IV 0701 Vital Signs & I&O Last 24 Hrs of Vitals and I&O: Vital Signs Date Time Temp Pulse Resp B/P B/P Pulse O2 O2 Flow FiO2 Mean Ox Delivery Rate 12/23 1103 96 Nasal 2.0L Cannula 12/23 1036 84 126/70 12/23 0844 98.2 97 20 134/90 98 Nasal 2.0L Cannula 12/23 0830 98.2 97 20 134/90 98 Nasal 2.0L Cannula 12/23 0000 94 Nasal 3.0L Cannula 12/22 2341 97.5 77 16 96/52 93 Nasal 3.0L Cannula 12/22 2204 85 110/60 12/22 1830 94 Nasal 2.0L Cannula 12/22 1612 97.8 90 18 100/58 95 Nasal 2.0L Cannula 12/22 1600 Nasal 2.0L Cannula Intake & Output 12/23 1600 12/23 0800 12/23 0000 Intake Total 720 1200 Output Total 500 701 Balance 220 499 Intake, IV 600 600 Intake, Oral 120 600 Output, Other 1 Output, Urine 500 700 Exam Other Physical Findings: Gen - alert and awake HEENT - NCAT CVS - S1, S2, no murmurs, rubs or gallops Lungs - diminished breath sounds and prolonged end expiratory phase Abdomen - soft, non-tender, bs+ Ext - lower extremity dressing is intact Impression/Plan Impression/Plan Impression/Plan: Impression 81-year-old woman * Atrial fibrillation, diastolic heart failure, recent hypotension that is improved * Postoperative hypoxemia secondary to pulmonary edema now improved also with atelectasis and effusions * History of osteomyelitis on antibiotics * Severe COPD Plan -Antibiotics per primary team and ID -Taper oxygen for saturation above 92% -Follow up cardiology recommendations -Continue Eliquis -Continue incentive spirometry, out of bed, physical therapy -TRC and nebs
[2016-12-23 15:49] VITALS: BP 116/70
[2016-12-23 23:09] VITALS: BP 116/90
[2016-12-24 08:20] VITALS: BP 138/84
[2016-12-24 08:37] LABS: ABSOLUTE BASOPHIL COUNT 0.1 /CUMM (0.0-0.2); ABSOLUTE EOSINOPHIL COUNT 0.3 /CUMM (0.0-0.7); ABSOLUTE GRANULOCYTE CT 6.2 /CUMM (1.4-6.5); ABSOLUTE LYMPH COUNT 0.9 /CUMM (1.2-3.4); ABSOLUTE MONOCYTE COUNT 0.6 /CUMM (0.10-0.60); BASOPHIL % 0.7 % (0.0-2.0); EOSINOPHIL % 3.5 % (0-5); GRANULOCYTE % 76.9 % (42.2-75.2); HEMATOCRIT 34.2 % (37-47); MEAN CORPUSCULAR HGB 31.5 PG (27.0-31.0); MEAN CORPUSCULAR VOLUME 95.3 FL (81.0-99.0); MEAN PLATELET VOLUME 8.6 FL (7.4-10.4); PLATELET COUNT 469 /CUMM (130-400); RED BLOOD CELL CT 3.59 /CUMM (4.20-5.40); WHITE BLOOD CELL COUNT 8.1 /CUMM (4.8-10.8)
--- NOTE | 2016-12-24 10:19 | PN- Housestaff ---
MICHELLE GONZALEZ,ISAKIL 12/24/16 1019: Subjective Follow-up For: 1. Postoperative hypoxemia, secondary to pulmonary edema, bilateral effusions and atelectasis. 2. Status post right LE venogram for PAD, right lower extremity non-healing ulcer. 3. History of osteomyelitis, on meropenem. 4. Severe COPD. 5. Atrial fibrillation, on Eliquis. 6. Nonsustained ventricular tachycardia. 7. Hypertension Tele-Events Since Last Visit: Dhruv monroy, heart rate 71-104, has a run of 4 beats Subjective: Afebrile, hemodynamically stable but blood pressure is running on the lower border of normal. Saturating well on 2 L of oxygen. No acute overnight events reported. Patient still complaining of pain on the leg. Review of Systems Constitutional: Reports: see HPI. Objective Last 24 Hrs of Vital Signs/I&O Vital Signs Date Time Temp Pulse Resp B/P B/P Pulse O2 O2 Flow FiO2 Mean Ox Delivery Rate 12/24 1620 97.6 70 20 104/62 94 Nasal 2.0L Cannula 12/24 1006 72 138/84 12/24 1006 72 138/84 12/24 0915 95 Nasal 2.0L Cannula 12/24 0820 97.6 72 20 138/84 93 Nasal 2.0L Cannula 12/24 0800 95 Nasal 2.0L Cannula 12/24 0000 Nasal 2.0L Cannula 12/23 2309 98.1 90 12 116/90 95 Nasal 2.0L Cannula 12/23 2114 84 118/60 12/23 1857 99 Nasal 3.5L Cannula Intake & Output 12/24 1600 12/24 0800 12/24 0000 Intake Total 2033 558 0925 Output Total 300 650 500 Balance 725 190 760 Intake, IV 225 600 900 Intake, Oral 800 240 360 Number 0 0 0 Bowel Movements Output, Urine 300 650 500 Physical Exam General Appearance: Alert, Oriented X3, Cooperative, No Acute Distress HEENT: Atraumatic, PERRLA, EOMI, Mucous Membr. moist/pink Cardiovascular: Normal S1, Normal S2, No Murmurs, irregular Lungs: Clear to Auscultation, Normal Air Movement Abdomen: Normal Bowel Sounds, Soft, No Tenderness Neurological: Normal Speech Extremities: No Clubbing, No Cyanosis, No Edema, right leg is covered with clean dressing Current Medications: Current Medications Sig/Chris Start time Last Medication Dose Route Stop Time Status Admin Acetaminophen 650 MG Q6PRN PRN 12/12 1715 AC 12/16 PO 2002 Albuterol Sulfate 3 ML BID 12/22 2200 AC 12/24 INH 0908 Apixaban 5 MG BID 12/20 1000 AC 12/24 PO 1006 Aspirin 81 MG DAILY 12/21 1321 AC 12/24 PO 1006 Atorvastatin Calcium 20 MG 1700 12/13 1700 AC 12/24 PO 1647 Bisacodyl 10 MG DAILY PRN 12/20 1030 AC 12/21 [place] 0852 Bisacodyl 5 MG DAILY 12/20 1016 AC 12/24 PO 1006 Clonazepam 0.25 MG BID 12/24 1000 AC 12/24 PO 12/31 0959 1005 Docusate Sodium 100 MG DAILY NEEDED PRN 12/12 1715 AC PO Escitalopram Oxalate 10 MG DAILY 12/13 1000 AC 12/24 PO 1006 Gabapentin 300 MG DAILY 12/13 1000 AC 12/24 PO 1006 Ipratropium [place] 2.5 ML BID 12/22 2200 AC 12/24 INH 0908 Losartan Potassium 100 MG DAILY 12/13 1000 AC 12/24 PO 1006 Meropenem 1 GM Q8 12/21 2245 AC 12/24 IV 1512 Metoprolol Tartrate 25 MG BID 12/13 2200 AC 12/24 PO 1006 Mirtazapine 15 MG QPM 12/15 2200 AC 12/23 PO 2114 Morphine Sulfate 2 MG DAILY NEEDED PRN 12/15 0945 AC 12/23 IV 1704 Omeprazole 20 MG DAILY AC 12/14 0700 AC 12/24 PO 0601 Ondansetron HCl 4 MG Q8P PRN 12/12 171 AC IV Oxycodone/ 1 TAB Q4P PRN 12/12 171 AC 12/22 Acetaminophen PO 2203 Oxycodone/ 2 TAB Q4P PRN 12/12 1715 AC 12/24 Acetaminophen PO 1516 Polyethylene Glycol 17 GM DAILY PRN 12/18 0945 AC 12/20 PO 1221 Senna 187 MG AT BEDTIME 12/18 220 AC 12/23 PO 2114 Sodium Chloride 1,000 ML Q13H 12/22 0400 DC 12/23 IV 1918 Last 24 Hrs of Lab/Zachary Results Last 24 Hrs of Labs/Mics: Laboratory Tests 12/24/16 0646: Anion Gap 4 L, Estimated GFR > 60, BUN/Creatinine Ratio 34.3 H, CBC w Diff NO MAN DIFF REQ, RBC 3.59 L, MCV 95.3, MCH 31.5 H, RDW 15.0 H, MPV 8.6, Gran % 76.9 H, Lymphocytes % 10.9 L, Monocytes % 8.0, Eosinophils % 3.5, Basophils % 0.7, Absolute Granulocytes 6.2, Absolute Lymphocytes 0.9 L, Absolute Monocytes 0.6, Absolute Eosinophils 0.3, Absolute Basophils 0.1, PUBS MCHC 33.0 Assessment/Plan Assessment: 80-year-old lady who is an every day smoker with pmh of HTN, HLD, A.fib on Eliquis, severe PAD s/p femoral bypass in January of 2014, venous stasis ulcer, TIA , CVA, polio, was admitted for postoperative hypoxemia following an elective Rt. lower extremity venogram for Rt. leg PAD on 12/12/16 likely from pleural effusions and bibasilar atelectasis. Problem List: 1. Postoperative hypoxemia, secondary to pulmonary edema, bilateral effusions and atelectasis. 2. Status post right LE venogram for PAD, right lower extremity non-healing ulcer. 3. History of osteomyelitis, on meropenem. 4. Severe COPD. 5. Atrial fibrillation, on Eliquis. 6. Nonsustained ventricular tachycardia. 7. Hypertension Problem List: * Pt. for OR debridement tommorow under local/sedation, we will continue Eliquis as per vascular * Cont. Meropenam per ID (Dr. Sparks) * NO TELFA to wound as this macerates pts skin--use adaptic gauze and Kerlix * Taper oxygen for saturation above 92% * Continue incentive spirometry, out of bed, physical therapy * TRC and nebs * DC IV fluid * Patient is being followed by Vascular surgery for management of osteomyelitis. Duration of Meropenem treatment is unknow and will have to be clarified with Vascular Sugery. DVT prophylaxis Eliquis Code full Diet heart healthy Consultation pulmonary, vascular, PT, and cardiology Problem List: 1. Postoperative hypoxemia Pain Ratin Pain Location: right leg Pain Goal: Remain pain free Pain Plan: See A&P Tomorrow's Labs & Rationales: nakita GARNICA MD,FALGUNI 12/24/16 1728: Attending MD Review Statement Attending Statement Attending MD Statement: examined this patient, discuss w/resident/PA/HEAVY EQUIPMENT OPERATOR APPRENTICE, agreed w/resident/PA/HEAVY EQUIPMENT OPERATOR APPRENTICE, discussed with family, reviewed EMR data (avail), discussed with nursing, discussed with case mgmt, reviewed images, amended to note Attending Assessment/Plan: 81-year-old female with past medical history significant for hypertension, hyperlipidemia, A. fib on Eliquis, CVA peripheral was cooler disease status post femoral bypass, venous stasis ulcer, TIA, CVA, was initially admitted to the intensive care unit for postoperative respiratory failure following an elective right lower extremity venogram/angiogram for right lower extremity peripheral arterial disease on 12/12/2016, and has now been transferred out to the floor when her conditions got stabilized. Of note, she was started on meropenem by his vascular surgeon/ID physician at the [facility] for presumed osteomyelitis based on positive bone scan and superficial culture for Pseudomonas with no bone biopsy are debridement performed. Patient currently has a PICC line and the plan is to complete 4 weeks of meropenem. Patient was seen and examined on the bedside and reported pain and tingling in his lower extremities as well as anxiety. She is on 2 L of oxygen by nasal cannula and her blood pressure has improved. Given pt has MARY ALICE, she has been on short acting benzos for yrs which has been restarted. Patient was followed this morning by the vascular surgeon and the plan is to take the patient to OR for a mid pretibial necrosis with granulation tissue for debridement. Patient will continue with her Eliquis during the procedure as it will be done under local/sedation.
--- NOTE | 2016-12-24 11:03 | PN- Pulmonary ---
Subjective HPI/Critical Care Issues: Patient seen and examined this morning she significantly feels better and continues to participate in proper incentive spirometry exercises. Her hemodynamics have been stable. Objective Current Medications: Current Medications Sig/Chris Start time Last Medication Dose Route Stop Time Status Admin Acetaminophen 650 MG Q6PRN PRN 12/12 1715 AC 12/16 PO 2002 Albuterol Sulfate 3 ML BID 12/22 2200 AC 12/24 INH 0908 Apixaban 5 MG BID 12/20 1000 AC 12/24 PO 1006 Aspirin 81 MG DAILY 12/21 1321 AC 12/24 PO 1006 Atorvastatin Calcium 20 MG 1700 12/13 1700 AC 12/23 PO 1614 Bisacodyl 10 MG DAILY PRN 12/20 1030 AC 12/21 [place] 0852 Bisacodyl 5 MG DAILY 12/20 1016 AC 12/24 PO 1006 Clonazepam 0.25 MG BID 12/24 1000 AC 12/24 PO 12/31 0959 1005 Docusate Sodium 100 MG DAILY NEEDED PRN 12/12 1715 AC PO Escitalopram Oxalate 10 MG DAILY 12/13 1000 AC 12/24 PO 1006 Gabapentin 300 MG DAILY 12/13 1000 AC 12/24 PO 1006 Ipratropium [place] 2.5 ML BID 12/22 2200 AC 12/24 INH 0908 Losartan Potassium 100 MG DAILY 12/13 1000 AC 12/24 PO 1006 Meropenem 1 GM Q8 12/21 2245 AC 12/24 IV 0601 Metoprolol Tartrate 25 MG BID 12/13 2200 AC 12/24 PO 1006 Mirtazapine 15 MG QPM 12/15 2200 AC 12/23 PO 2114 Morphine Sulfate 2 MG DAILY NEEDED PRN 12/15 0945 AC 12/23 IV 1704 Omeprazole 20 MG DAILY AC 12/14 0700 AC 12/24 PO 0601 Ondansetron HCl 4 MG Q8P PRN 12/12 1715 AC IV Oxycodone/ 1 TAB Q4P PRN 12/12 171 AC 12/22 Acetaminophen PO 2203 Oxycodone/ 2 TAB Q4P PRN 12/12 1715 AC 12/24 Acetaminophen PO 0831 Polyethylene Glycol 17 GM DAILY PRN 12/18 0945 AC 12/20 PO 1221 Senna 187 MG AT BEDTIME 12/18 2200 AC 12/23 PO 2114 Sodium Chloride 1,000 ML Q13H 12/22 0400 DC 12/23 IV 1918 Vital Signs & I&O Last 24 Hrs of Vitals and I&O: Vital Signs Date Time Temp Pulse Resp B/P B/P Pulse O2 O2 Flow FiO2 Mean Ox Delivery Rate 12/24 1006 72 138/84 12/24 1006 72 138/84 12/24 0915 95 Nasal 2.0L Cannula 12/24 0820 97.6 72 20 138/84 93 Nasal 2.0L Cannula 12/24 0000 Nasal 2.0L Cannula 12/23 2309 98.1 90 12 116/90 95 Nasal 2.0L Cannula 12/23 2114 84 118/60 12/23 1857 99 Nasal 3.5L Cannula 12/23 1600 Nasal 3.0L Cannula 12/23 1549 98.6 88 20 116/70 97 Nasal 4.0L Cannula 12/23 1103 96 Nasal 2.0L Cannula Intake & Output 12/24 1600 12/24 0800 12/24 0000 Intake Total 840 1260 Output Total 650 500 Balance 190 760 Intake, IV 600 900 Intake, Oral 240 360 Number 0 0 Bowel Movements Output, Urine 650 500 Exam Other Physical Findings: Gen - alert and awake HEENT - NCAT CVS - S1, S2, no murmurs, rubs or gallops Lungs - diminished breath sounds and prolonged end expiratory phase Abdomen - soft, non-tender, bs+ Ext - lower extremity dressing is intact Results Last 24 Hrs of Lab Results: Laboratory Tests 12/24/16 0646: Anion Gap 4 L, Estimated GFR > 60, BUN/Creatinine Ratio 34.3 H, CBC w Diff NO MAN DIFF REQ, RBC 3.59 L, MCV 95.3, MCH 31.5 H, RDW 15.0 H, MPV 8.6, Gran % 76.9 H, Lymphocytes % 10.9 L, Monocytes % 8.0, Eosinophils % 3.5, Basophils % 0.7, Absolute Granulocytes 6.2, Absolute Lymphocytes 0.9 L, Absolute Monocytes 0.6, Absolute Eosinophils 0.3, Absolute Basophils 0.1, PUBS MCHC 33.0 Impression/Plan Impression/Plan Impression/Plan: Impression 81-year-old woman * Atrial fibrillation, diastolic heart failure, recent hypotension that is improved * Postoperative hypoxemia secondary to pulmonary edema now improved also with atelectasis and effusions * History of osteomyelitis on antibiotics * Severe COPD Plan -Antibiotics per primary team and ID -Taper oxygen for saturation above 92% -Follow up cardiology recommendations -Continue Eliquis -Continue incentive spirometry, out of bed, physical therapy -TRC and nebs
--- NOTE | 2016-12-24 13:18 | PN- Vascular Surgery ---
Surgical Brief Attending Note Brief Attending Note: VASCULAR ATTENDING NOTE: Pt. seen and examined today. Stable LE exam. BP and O2 sat improved. Pt. mild- moderate complaint of pain. PE: AF/VSS Ext: RLE perfused, mid pre-tibial necrosis, + gran. tissue arounf this area, overall improving A/P PAD with improving LE exam 1.) Pt. for OR debridement tommorow under local/sedation 2.) Cont. Eliquis as this will only be subcut. debridemt 3.) Cont. Meropenam per ID (Dr. Sparks) 4.) NO TELFA to wound as this macerates pts skin--use adaptic gauze and Kerlix
[2016-12-24 16:20] VITALS: BP 104/62
[2016-12-25 00:15] VITALS: BP 98/54
--- NOTE | 2016-12-25 07:36 | PN- Housestaff ---
JERSON GONZALEZ,[facility] 12/25/16 0736: Subjective Follow-up For: 1. Postoperative hypoxemia, secondary to pulmonary edema, bilateral effusions and atelectasis. 2. Status post right LE venogram for PAD, right lower extremity non-healing ulcer. 3. History of osteomyelitis, on meropenem. 4. Severe COPD. 5. Atrial fibrillation, on Eliquis. 6. Nonsustained ventricular tachycardia. 7. Hypertension Tele-Events Since Last Visit: AFib 72-86 with no events Subjective: Patient reports pain in the lower extremity in the region of the ulcer. States its 01/13. Aware that she is to be taken for debridement today. Review of Systems Constitutional: Reports: see HPI. Objective Last 24 Hrs of Vital Signs/I&O Vital Signs Date Time Temp Pulse Resp B/P B/P Pulse O2 O2 Flow FiO2 Mean Ox Delivery Rate 12/25 0015 97.9 74 20 98/54 95 Nasal Cannula 12/25 0000 Nasal 2.0L Cannula 12/24 2215 70 102/50 12/24 1950 94 Nasal 2.0L Cannula 12/24 1620 97.6 70 20 104/62 94 Nasal 2.0L Cannula 12/24 1600 Nasal 2.0L Cannula 12/24 1006 72 138/84 12/24 1006 72 138/84 12/24 0915 95 Nasal 2.0L Cannula 12/24 0820 97.6 72 20 138/84 93 Nasal 2.0L Cannula 12/24 0800 95 Nasal 2.0L Cannula Intake & Output 12/25 0800 12/25 0000 12/24 1600 Intake Total 500 1025 Output Total 900 400 300 Balance -900 100 725 Intake, IV 225 Intake, Oral 500 800 Number 0 Bowel Movements Output, Urine 900 400 300 Physical Exam General Appearance: Alert, Oriented X3, Cooperative, Mild Distress Cardiovascular: Regular Rate, Normal S1, Normal S2 Lungs: Clear to Auscultation, Normal Air Movement Abdomen: Normal Bowel Sounds, Soft, No Tenderness Neurological: Normal Speech, Strength at 5/5 X4 Ext, Normal Tone, Sensation Intact Extremities: Bandage present on the right castellano with no evidence of erythema around it or discharge. Current Medications: Current Medications Sig/Chris Start time Last Medication Dose Route Stop Time Status Admin Acetaminophen 650 MG Q6PRN PRN 12/12 1715 AC 12/16 PO 2002 Albuterol Sulfate 3 ML BID 12/22 2200 AC 12/24 INH 0908 Apixaban 5 MG BID 12/20 1000 AC 12/24 PO 2208 Aspirin 81 MG DAILY 12/21 1321 AC 12/24 PO 1006 Atorvastatin Calcium 20 MG 1700 12/13 1700 AC 12/24 PO 1647 Bisacodyl 10 MG DAILY PRN 12/20 1030 AC 12/21 [place] 0852 Bisacodyl 5 MG DAILY 12/20 1016 AC 12/24 PO 1006 Clonazepam 0.25 MG BID 12/24 1000 AC 12/24 PO 12/31 0959 2216 Docusate Sodium 100 MG DAILY NEEDED PRN 12/12 1715 AC PO Escitalopram Oxalate 10 MG DAILY 12/13 1000 AC 12/24 PO 1006 Gabapentin 300 MG DAILY 12/13 1000 AC 12/24 PO 1006 Ipratropium Rufe 2.5 ML BID 12/22 2200 AC 12/24 INH 0908 Losartan Potassium 100 MG DAILY 12/13 1000 AC 12/24 PO 1006 Meropenem 1 GM Q8 12/21 2245 AC 12/25 IV 0514 Metoprolol Tartrate 25 MG BID 12/13 2200 AC 12/24 PO 1006 Mirtazapine 15 MG QPM 12/15 2200 AC 12/24 PO 2208 Morphine Sulfate 2 MG DAILY NEEDED PRN 12/15 0945 AC 12/23 IV 1704 Omeprazole 20 MG DAILY AC 12/14 0700 AC 12/25 PO 0514 Ondansetron HCl 4 MG Q8P PRN 12/12 171 AC IV Oxycodone/ 1 TAB Q4P PRN 12/12 1714 AC 12/25 Acetaminophen PO 0010 Oxycodone/ 2 TAB Q4P PRN 12/12 1715 AC 12/24 Acetaminophen PO 2207 Polyethylene Glycol 17 GM DAILY PRN 12/18 0945 AC 12/20 PO 1221 Senna 187 MG AT BEDTIME 12/18 2199 AC 12/24 PO 2208 Sodium Chloride 1,000 ML Q13H 12/22 0400 DC 12/23 IV 1918 Last 24 Hrs of Lab/Zachary Results Last 24 Hrs of Labs/Mics: Laboratory Tests 12/25/16 0600: Sodium Pending, Potassium Pending, Chloride Pending, Carbon Dioxide Pending, Anion Gap Pending, BUN Pending, Creatinine Pending, BUN/Creatinine Ratio Pending , CBC w Diff Pending, WBC Pending, RBC Pending, Hgb Pending, Hct Pending, MCV Pending, MCH Pending, RDW Pending, Plt Count Pending, MPV Pending, PUBS MCHC Pending Lines/Diet/Fluids Lines: central line Assessment/Plan Assessment: 80-year-old lady who is an every day smoker with pmh of HTN, HLD, A.fib on Eliquis, severe PAD s/p femoral bypass in January of 2014, venous stasis ulcer, TIA , CVA, polio, was admitted for postoperative hypoxemia following an elective Rt. lower extremity venogram for Rt. leg PAD on 12/12/16 likely from pleural effusions and bibasilar atelectasis. Problem List: 1. Postoperative hypoxemia, secondary to pulmonary edema, bilateral effusions and atelectasis. 2. Status post right LE venogram for PAD, right lower extremity non-healing ulcer. 3. History of osteomyelitis, on meropenem. 4. Severe COPD. 5. Atrial fibrillation, on Eliquis. 6. Nonsustained ventricular tachycardia. 7. Hypertension Problem List: * Pt. for OR debridement today under local/sedation, we will continue Eliquis as per vascular * Cont. Meropenem per ID (Dr. Sparks) * NO TELFA to wound as this macerates pts skin--use adaptic gauze and Kerlix * Taper oxygen for saturation above 92% * Continue incentive spirometry, out of bed, physical therapy * TRC and nebs * Patient will be continued on Meropenem on discharge, after which, she will have to follow up with Dr. Janie Sparks (ID, [facility]) for further management. The course of antibiotic therapy was initially estimated to be 4 weeks. DVT prophylaxis Eliquis Code full Diet heart healthy Consultation pulmonary, vascular, PT, and cardiology Problem List: 1. Postoperative hypoxemia Pain Ratin Pain Location: Right castellano in the region of the ulcer. Pain Goal: Pain 4 or less Pain Plan: Per EMR Tomorrow's Labs & Rationales: BEP DVT/Prophylaxis: pharmacological JOE GONZALEZ,ROBLES 12/25/16 1625: Attending MD Review Statement Attending Statement Attending MD Statement: examined this patient, discuss w/resident/PA/HIGHWAY ENGINEERING TEACHER, agreed w/resident/PA/HIGHWAY ENGINEERING TEACHER, reviewed EMR data (avail), discussed with nursing, discussed with case mgmt, reviewed images, amended to note Attending Assessment/Plan: Patient seen and examined, came back from surgery. She now has a wound VAC on. She had been seen by infectious disease and recommendation is to keep her on meropenem. Patient's diuretics are still on hold secondary to hypotension. This afternoon her blood pressure is slightly better. Please discuss with cardiology about resuming low-dose diuretics. Patient was started on her metoprolol as well as losartan. She will need to go to rehabilitation upon discharge hopefully in the next 1-2 days. She is on Eliquis for DVT prophylaxis.
[2016-12-25 08:30] LABS: ABSOLUTE BASOPHIL COUNT 0.1 /CUMM (0.0-0.2); ABSOLUTE EOSINOPHIL COUNT 0.2 /CUMM (0.0-0.7); ABSOLUTE GRANULOCYTE CT 6.2 /CUMM (1.4-6.5); ABSOLUTE LYMPH COUNT 1.1 /CUMM (1.2-3.4); ABSOLUTE MONOCYTE COUNT 0.6 /CUMM (0.10-0.60); BASOPHIL % 0.7 % (0.0-2.0); EOSINOPHIL % 2.9 % (0-5); GRANULOCYTE % 75.2 % (42.2-75.2); HEMATOCRIT 34.3 % (37-47); MEAN CORPUSCULAR HGB 31.4 PG (27.0-31.0); MEAN CORPUSCULAR HGB CONC 32.8 G/DL (33.0-37.0); MEAN CORPUSCULAR VOLUME 95.5 FL (81.0-99.0); MEAN PLATELET VOLUME 8.6 FL (7.4-10.4); PLATELET COUNT 490 /CUMM (130-400); RBC DISTRIBUTION WIDTH 15.2 % (11.5-14.5); RED BLOOD CELL CT 3.59 /CUMM (4.20-5.40); WHITE BLOOD CELL COUNT 8.3 /CUMM (4.8-10.8)
--- NOTE | 2016-12-25 08:49 | Discharge Summary ---
Visit Information Visit Dates Admission Date: 12/14/16 Discharge Date: 12/27 Hospital Course Course Attending Physician: ROBLES DIAZ MD Primary Care Physician: CHAY GARCIA MD Consulting Request: 1 Consulting Specialty: Thoracic/Vascular Surgery Consulting Physician: Dr. Ortiz Consulting Request: 2 Consulting Specialty: Cardiology Consulting Physician: Dr. Lezama Consulting Request: 3 Consulting Specialty: Pulmonary Disease Consulting Physician: Dr. Eisenberg Hospital Course: Ms. Mcneal is 80-year-old female with past medical history significant for hypertension, hyperlipidemia, atrial fibrillation on Eliquis, TIA, advanced COPD , current smoker, severe PAD s/p femoral bypass in January of 2014, chronic venous stasis ulcer and atherosclerotic ulceration of right LE who was admitted for postoperative hypoxemia following an elective Rt. lower extremity venogram on 12/12/16 Medical consultation was obtained on 12/13/16 due to desaturation to 83% on room air POD#1, patient continued to have low saturation, was transferred to ICU for close monitoring. Acute hypoxemic respiratory failure: -Patient's baseline saturation in the low 90s, desat after the procedure to 83% on room air. Chest x-ray showed hyperinflated lungs with atelectasis versus scarring in both lung bases and the upper lobes, no acute consolidation, prominent pulmonary vascularity was seen. Oxygen supplementation was started, recommendation to keep O2> 92% on rest, O2> 88% on exertion. Despite the fact that patient was on IV heparin (while off eliquis) prior to procedure, PE was still suspected, CTA was obtained negative for PE. CT chest was obtained as well that revealed pleural effusion (Rt > Lt), while waiting for IR to proceed with thoracentesis, patient was on Lasix 40 IV BID with respiratory improvement, plan for thoracentesis wasn't successful as bedside chest ultrasound didn't show any enough fluid to be tapped. Patient's respiratory situation improved significantly, incentive spirometry, TRC (albuterol and atrovent) were on board, oxygen was tapered to 2 L with saturation above 92%, patient was transferred to telemetry floor. Osteomyelitis: Patient has PMH of chronic ulcer on right pretibial area on IV meropenem that was started 1 week prior to admission, patient has PICC line. ID consult was placed for further management. It appears the patient is following up with Dr. Amber Sparks (ID) at [facility] and will be discontinued off Meropenem, as cultures were resistant to Meropenem, but sensitive to Ceftaz. Dr. Sparks aware and current plan is to discharge the patient off any antibiotioc. She underwent debridement of the wound and subsequent placement of a wound vac on 12/25, by Dr. Ortiz. Patient will follow up with Dr. Ortiz as an outpatient. Atrial Fibrillation with episode of hypotension and subsequent NSVT: History of atrial fibrillation on elquis, was on IV heparin prior to angiogram, eliquis was restarted on 12/20/16. Patient was on Lasix 40 mg twice a day for evidence of volume overload (bilateral chest crackles) improved, IV Lasix was discontinued after episodes of hypotension. Antihypertensive medications were held, patient received total of 3 boluses of 500 mL, systolic went down to 80, improved with IV fluid. Orthostatic measurement positive. Telemetry record for NSVT 14 runs asymptomatic, cardiology recommendation was obtained. After the patient was downgraded to telemetry, there were no further episodes of Vtach. Blood pressure improved and she was restarted on her anti-hypertensives. Diuretics continued to be held. Skin: -Chronic nonhealing ulcer of the right leg s/p right leg angiogram on 12/12/2016 : Continue wound care (with Adaptic and gauze once daily per vascular recommendation) DVT prophylaxis Elquis Code full Diet heart healthy, Ensure BID Consultation pulmonary, vascular, PT Allergies: Coded Allergies: cefepime (? 12/07/16) doxycycline (? 12/07/16) sulfamethoxazole (From BACTRIM) (? 12/07/16) trimethoprim (From BACTRIM) (? 12/07/16) Significant Procedures: Patient underwent these procedures: 1) Rt LE venogram on 12/12/16 2) Debridement of Rt castellano ulcer and placement of wound vac on 12/25/16 Disposition Summary Disposition Principal Diagnosis: 1. Postoperative hypoxemia, secondary to pulmonary edema, bilateral effusions and atelectasis. 2. Status post right LE venogram for PAD, right lower extremity non-healing ulcer. Additional Diagnosis: 1. History of osteomyelitis, on meropenem. 2. Severe COPD. 3. Atrial fibrillation, on Eliquis. 4. Nonsustained ventricular tachycardia. 5. Hypertension Discharge Disposition: STR Discharge Instructions General Discharge Information Code Status: Full Code Patient's Diet: Heart Healthy Diet Patient's Activity: As tolerated Follow-Up Instructions/Appts: Please make an appointment to see: 1) Your PCP within one week from discharge 2) Please follow up with the vascular surgeon within one week after discharge 3) Please follow up with Dr. Sparks regarding further management of the Meropenem. 4) Please follow up with the health support specialist within one week from discharge 5) Please follow up with your lumber trimmer within one week from discharge. Medications at Discharge Discharge Medications: Stop taking the following medications: Losartan (Cozaar) 100 MG TABLET ORAL DAILY Meropenem (Meropenem) 1 GRAM VIAL INTRAVEN EVERY 8 HOURS Continue taking these medications: Apixaban (Eliquis) 5 MG TABLET 1 Tablet ORAL TWICE DAILY Comments: Last Taken: 12/27/16 Time: 11:00 AM Gabapentin (Gabapentin) 300 MG CAPSULE 1 Capsule ORAL DAILY Comments: Last Taken: 12/27/16 Time: 11:00 AM Clonazepam (Clonazepam) 0.25 MG TAB.RAPDIS 1 Tablet ORAL TWICE DAILY Comments: Last Taken: 12/27/16 Time: 11:00 AM Escitalopram Oxalate (Lexapro) 10 MG TABLET 1 Tablet ORAL DAILY Comments: Last Taken: 12/27/16 Time: 11:00 AM Atorvastatin Calcium (Lipitor) 20 MG TABLET 1 Tablet ORAL DAILY Comments: Last Taken: 12/26/16 Time: 5:00 PM Mirtazapine (Remeron) 15 MG TABLET 1 Tablet ORAL Every night Comments: Last Taken: 12/25/16 Time: 9:30 PM Metoprolol Tartrate (Metoprolol Tartrate) 25 MG TABLET 1 Tablet ORAL TWICE DAILY Comments: Last Taken: 12/25/16 Time: 9:30 PM Ergocalciferol (Vitamin D2) (Vitamin D2) 50,000 UNIT CAPSULE 1 Capsule ORAL Once a Week Comments: NOT GIVEN WHILE IN HOSPITAL Aspirin (Ecotrin*) 81 MG TABLET.DR 1 Tablet ORAL DAILY Days = 60 Comments: Last Taken: 12/27/16 Time: 11:00 AM This prescription has been renewed Start taking the following new medications: Oxycodone HCl/Acetaminophen (Percocet 5-325 MG Tablet) 5 MG-325 MG TABLET 1 Tablet ORAL Q4-6H as needed for PAIN Qty = 18 No Refills Comments: Last Taken: 11/27/16 Time: 4:00 PM Copies To: JUAN ALBERTO GONZALEZ,RACHNA Valverde; RENU GONZALEZ,AMBER Garner; EDWIN GONZALEZ,TERENCE; RADHA GONZALEZ,CHAY Eason; YOLANDA GONZALEZ,BRANDIE Attending Review Statement Documenting Attending: ROBLES DIAZ MD
[2016-12-25 08:58] VITALS: BP 147/88
--- NOTE | 2016-12-25 09:07 | PN- Pulmonary ---
Subjective HPI/Critical Care Issues: pt seen and examined anticipating vascular surgery intervention does IST well no new respiratory issues Objective Current Medications: Current Medications Sig/Chris Start time Last Medication Dose Route Stop Time Status Admin Acetaminophen 650 MG Q6PRN PRN 12/12 1715 AC 12/16 PO 2002 Albuterol Sulfate 3 ML BID 12/22 2200 AC 12/25 INH 0843 Apixaban 5 MG BID 12/20 1000 AC 12/24 PO 2208 Aspirin 81 MG DAILY 12/21 1321 AC 12/24 PO 1006 Atorvastatin Calcium 20 MG 1700 12/13 1700 AC 12/24 PO 1647 Bisacodyl 10 MG DAILY PRN 12/20 1030 AC 12/[address] [place] 0852 Bisacodyl 5 MG DAILY 12/20 1016 AC 12/24 PO 1006 Clonazepam 0.25 MG BID 12/24 1000 AC 12/24 PO 12/31 0959 2216 Docusate Sodium 100 MG DAILY NEEDED PRN 12/12 171 AC PO Escitalopram Oxalate 10 MG DAILY 12/13 1000 AC 12/24 PO 1006 Gabapentin 300 MG DAILY 12/13 1000 AC 12/24 PO 1006 Ipratropium [place] 2.5 ML BID 12/22 2200 AC 12/25 INH 0843 Losartan Potassium 100 MG DAILY 12/13 1000 AC 12/24 PO 1006 Meropenem 1 GM Q8 12/21 2245 AC 12/25 IV 0514 Metoprolol Tartrate 25 MG BID 12/13 2200 AC 12/24 PO 1006 Mirtazapine 15 MG QPM 12/15 2200 AC 12/24 PO 2208 Morphine Sulfate 2 MG DAILY NEEDED PRN 12/15 0945 AC 12/23 IV 1704 Omeprazole 20 MG DAILY AC 12/14 0700 AC 12/25 PO 0514 Ondansetron HCl 4 MG Q8P PRN 12/12 171 AC IV Oxycodone/ 1 TAB Q4P PRN 12/12 1714 AC 12/25 Acetaminophen PO 0010 Oxycodone/ 2 TAB Q4P PRN 12/12 1715 AC 12/24 Acetaminophen PO 2207 Polyethylene Glycol 17 GM DAILY PRN 12/18 0945 AC 12/20 PO 1221 Senna 187 MG AT BEDTIME 12/18 2200 AC 12/24 PO 2208 Vital Signs & I&O Last 24 Hrs of Vitals and I&O: Vital Signs Date Time Temp Pulse Resp B/P B/P Pulse O2 O2 Flow FiO2 Mean Ox Delivery Rate 12/25 0901 94 Nasal 2.0L Cannula 12/25 0858 97.5 76 19 147/88 89 Nasal 2.0L Cannula 12/25 0015 97.9 74 20 98/54 95 Nasal Cannula 12/25 0000 Nasal 2.0L Cannula 12/24 2215 70 102/50 12/24 1950 94 Nasal 2.0L Cannula 12/24 1620 97.6 70 20 104/62 94 Nasal 2.0L Cannula 12/24 1600 Nasal 2.0L Cannula 12/24 1006 72 138/84 12/24 1006 72 138/84 12/24 0915 95 Nasal 2.0L Cannula Intake & Output 12/25 1600 12/25 0800 12/25 0000 Intake Total 500 Output Total 900 400 Balance -900 100 Intake, Oral 500 Output, Urine 900 400 Exam Other Physical Findings: Gen - alert and awake HEENT - NCAT CVS - S1, S2, no murmurs, rubs or gallops Lungs - diminished breath sounds and prolonged end expiratory phase Abdomen - soft, non-tender, bs+ Ext - lower extremity dressing is intact Results Last 24 Hrs of Lab Results: Laboratory Tests 12/25/16 0600: Anion Gap 5, Estimated GFR > 60, BUN/Creatinine Ratio 42.9 H, CBC w Diff NO MAN DIFF REQ, RBC 3.59 L, MCV 95.5, MCH 31.4 H, RDW 15.2 H, MPV 8.6, Gran % 75.2, Lymphocytes % 13.9 L, Monocytes % 7.3, Eosinophils % 2.9, Basophils % 0.7, Absolute Granulocytes 6.2, Absolute Lymphocytes 1.1 L, Absolute Monocytes 0.6, Absolute Eosinophils 0.2, Absolute Basophils 0.1, PUBS MCHC 32.8 L Impression/Plan Impression/Plan Impression/Plan: Impression 81-year-old woman * Atrial fibrillation, diastolic heart failure, recent hypotension that is improved * Postoperative hypoxemia secondary to pulmonary edema now improved also with atelectasis and effusions * History of osteomyelitis on antibiotics * Severe COPD Plan -Antibiotics per primary team and ID -Taper oxygen for saturation above 92% -Follow up cardiology recommendations -Continue Eliquis -Continue incentive spirometry, out of bed, physical therapy -TRC and nebs -f/u vascuar surgery plan for OR
--- NOTE | 2016-12-25 10:48 | PN- Cardiology ---
Subjective Subjective: No chest pain. No shortness of breath. No diaphoresis. No palpitations. No syncope. No lightheadedness or dizziness. The patient is planned for surgical debridement today. Objective Vital Signs and I&Os Vital Signs Date Time Temp Pulse Resp B/P B/P Pulse O2 O2 Flow FiO2 Mean Ox Delivery Rate 12/25 0901 94 Nasal 2.0L Cannula 12/25 0858 97.5 76 19 147/88 89 Nasal 2.0L Cannula 12/25 0015 97.9 74 20 98/54 95 Nasal Cannula 12/25 0000 Nasal 2.0L Cannula 12/24 2215 70 102/50 12/24 1950 94 Nasal 2.0L Cannula 12/24 1620 97.6 70 20 104/62 94 Nasal 2.0L Cannula 12/24 1600 Nasal 2.0L Cannula Intake & Output 12/25 1600 12/25 0800 12/25 0000 12/24 1600 12/24 0800 12/24 0000 Intake Total 500 3647 098 8791 Output Total 900 400 300 650 500 Balance -900 100 725 190 760 Intake, IV 225 600 900 Intake, Oral 500 800 240 360 Number 0 0 0 Bowel Movements Output, Urine 900 400 300 650 500 Physical Exam: Gen: NAD HEENT: normal Lungs: Scattered rales bilaterally, normal resp. effort Heart: RRR, S1, S2, no murmurs Abdomen: Soft, nontender, no masses Extremities: No clubbing, cyanosis, or edema. Neuro: Alert and oriented x 3, cranial nerves intact Current Medications: Current Medications Sig/Chris Start time Last Medication Dose Route Stop Time Status Admin Acetaminophen 650 MG Q6PRN PRN 12/12 1715 AC 12/16 PO 2001 Albuterol Sulfate 3 ML BID 12/22 2200 AC 12/25 INH 0843 Apixaban 5 MG BID 12/20 1000 AC 12/24 PO 2208 Aspirin 81 MG DAILY 12/21 1321 AC 12/24 PO 1006 Atorvastatin Calcium 20 MG 1700 12/13 1700 AC 12/24 PO 1647 Bisacodyl 10 MG DAILY PRN 12/20 1030 AC 12/21 [place] 0852 Bisacodyl 5 MG DAILY 12/20 1016 AC 12/24 PO 1006 Clonazepam 0.25 MG BID 12/24 1000 AC 12/24 PO 12/31 0959 2216 Docusate Sodium 100 MG DAILY NEEDED PRN 12/12 1715 AC PO Escitalopram Oxalate 10 MG DAILY 12/13 1000 AC 12/24 PO 1006 Gabapentin 300 MG DAILY 12/13 1000 AC 12/24 PO 1006 Ipratropium [place] 2.5 ML BID 12/22 2199 AC 12/25 INH 0843 Losartan Potassium 100 MG DAILY 12/13 1000 AC 12/24 PO 1006 Meropenem 1 GM Q8 12/21 2245 AC 12/25 IV 0514 Metoprolol Tartrate 25 MG BID 12/13 2199 AC 12/24 PO 1006 Mirtazapine 15 MG QPM 12/15 220 AC 12/24 PO 2208 Morphine Sulfate 2 MG DAILY NEEDED PRN 12/15 0945 AC 12/23 IV 1704 Omeprazole 20 MG DAILY AC 12/14 0700 AC 12/25 PO 0514 Ondansetron HCl 4 MG Q8P PRN 12/12 171 AC IV Oxycodone/ 1 TAB Q4P PRN 12/12 1714 AC 12/25 Acetaminophen PO 0010 Oxycodone/ 2 TAB Q4P PRN 12/12 1715 AC 12/24 Acetaminophen PO 2207 Polyethylene Glycol 17 GM DAILY PRN 12/18 0945 AC 12/20 PO 1221 Senna 187 MG AT BEDTIME 12/18 2199 AC 12/24 PO 2208 Results Last 48 Hrs of Labs/Mics: Laboratory Tests 12/25/16 0600: Anion Gap 5, Estimated GFR > 60, BUN/Creatinine Ratio 42.9 H, CBC w Diff NO MAN DIFF REQ, RBC 3.59 L, MCV 95.5, MCH 31.4 H, RDW 15.2 H, MPV 8.6, Gran % 75.2, Lymphocytes % 13.9 L, Monocytes % 7.3, Eosinophils % 2.9, Basophils % 0.7, Absolute Granulocytes 6.2, Absolute Lymphocytes 1.1 L, Absolute Monocytes 0.6, Absolute Eosinophils 0.2, Absolute Basophils 0.1, PUBS MCHC 32.8 L 12/24/16 0646: Anion Gap 4 L, Estimated GFR > 60, BUN/Creatinine Ratio 34.3 H, CBC w Diff NO MAN DIFF REQ, RBC 3.59 L, MCV 95.3, MCH 31.5 H, RDW 15.0 H, MPV 8.6, Gran % 76.9 H, Lymphocytes % 10.9 L, Monocytes % 8.0, Eosinophils % 3.5, Basophils % 0.7, Absolute Granulocytes 6.2, Absolute Lymphocytes 0.9 L, Absolute Monocytes 0.6, Absolute Eosinophils 0.3, Absolute Basophils 0.1, PUBS MCHC 33.0 Assessment/Plan Assessment/Plan Assessment: 1. Atrial fibrillation 2. Acute diastolic heart failure status post vascular procedure 3. Recent hypotension, improved with stopping diuretics and giving IV fluid Plan: * Would keep off diuretics for now, and monitor for evidence of recurrent congestive heart failure. * Avoid overhydration * Continue other cardiac medications Continue telemetry? Yes
--- NOTE | 2016-12-25 11:31 | NUR ---
PHYSICAL THERAPY: Pt IS OFF THE FLOOR FOR SURGICAL PROCEDURE TODAY. WILL F/U WITH P.T. TREATMENT APPROPRAITE TOMORROW. THANK YOU.
--- NOTE | 2016-12-25 11:34 | Operative Report ---
Operative/Inv Procedure Report Surgery Date: 12/25/16 Name of Procedure: Excisional debridement right leg through muscle, application of vacum assisted closure (VAC) Pre-Operative Diagnosis: PAD with R. leg ulcer Post-Operative Diagnosis: PAD with R. leg ulcer Estimated Blood Loss: scant Surgeon/Curing Pickling Packer: ROBLES DIAZ MD Anesthesia: local monitored anesthesi Complications: None Condition: Stable to PACU Operative Indication: Pt. with a history of R. LE ulceration and PAD. Pt. is PPD#6 after angio/stent. Here for debridement and VAC. Consent obtained. Operative/Procedure Note Note: Brought to OR and placed supine. Time out performed. Sharp excisional debridement performed after 10 cc of local used for anesthesia, Debridement with curette and scissors through muscle to healthly tissue. Wound dimensions increased in size/depth. VAC then applied. Pt. tolerated procedure well. Additional Comments: Tissue culture sent CC: CHAPO GONZALEZ,NORMA Ramirez; YOLANDA GONZALEZ,BRANDIE
[2016-12-25] MEDS ORDERED: MEROPENEM1 G1 IV (15:53)
[2016-12-25 16:11] VITALS: BP 133/63
--- NOTE | 2016-12-25 18:02 | NUR ---
LATE ENTRY - PATIENT REFUSED HER LOSARTAN 100MG PO BECAUSE SE WAS CONCERNED HER BP WOULD DROP TOO LOW. DR. GUERRERO AWARE OF LOSARTAN BEING HELD MOST DAYS. PT REFUSED AFTER SURGERY TODAY @ 1430.
[2016-12-26] VITALS (7 sets, daily range): BP systolic 88–120; BP diastolic 50–68
--- NOTE | 2016-12-26 07:24 | PN- Housestaff ---
JERSON GONZALEZ,[facility] 12/26/16 0723: Subjective Follow-up For: 1. Postoperative hypoxemia, secondary to pulmonary edema, bilateral effusions and atelectasis. 2. Status post right LE venogram for PAD, right lower extremity non-healing ulcer. 3. History of osteomyelitis, on meropenem. 4. Severe COPD. 5. Atrial fibrillation, on Eliquis. 6. Nonsustained ventricular tachycardia. 7. Hypertension Tele-Events Since Last Visit: 3 beat run of Vtach overnight. Mag levels were added to AM labs, which were normal. Subjective: Patient is sitting up in bed having breakfast. ROS is negative. Patient is aware that a wound vac was placed after her debridement yesterday. Review of Systems Constitutional: Reports: see HPI. Objective Last 24 Hrs of Vital Signs/I&O Vital Signs Date Time Temp Pulse Resp B/P B/P Pulse O2 O2 Flow FiO2 Mean Ox Delivery Rate 12/26 0212 110/68 12/26 0031 98.2 87 18 90/50 97 Nasal 2.0L Cannula 12/26 0000 Nasal 2.0L Cannula 12/25 2128 88 108/60 12/25 1855 81 Room Air 12/25 1611 97.7 85 19 133/63 93 Nasal 2.0L Cannula 12/25 1600 Nasal 2.0L Cannula 12/25 1455 77 130/66 12/25 0934 77 130/66 12/25 0901 94 Nasal 2.0L Cannula 12/25 0858 97.5 76 19 147/88 89 Nasal 2.0L Cannula 12/25 0800 94 Nasal 2.0L Cannula Intake & Output 12/26 0800 12/26 0000 12/25 1600 Intake Total 720 840 400 Output Total 620 400 300 Balance 100 440 100 Intake, IV 600 600 100 Intake, Oral 120 240 300 Number 0 Bowel Movements Output, 20 Drainage Output, Urine 600 400 300 Physical Exam General Appearance: Alert, Oriented X3, Cooperative, No Acute Distress Cardiovascular: Regular Rate, Normal S1, Normal S2 Lungs: Clear to Auscultation, Normal Air Movement Abdomen: Normal Bowel Sounds, Soft, No Tenderness Neurological: Normal Speech, Strength at 5/5 X4 Ext, Normal Tone, Sensation Intact Extremities: Right castellano present in a bandage with wound vac in place. Current Medications: Current Medications Sig/Chris Start time Last Medication Dose Route Stop Time Status Admin Acetaminophen 650 MG Q6PRN PRN 12/12 1715 AC 12/16 PO 2002 Albuterol Sulfate 3 ML BID 12/22 2200 AC 12/25 INH 1855 Apixaban 5 MG BID 12/20 1000 AC 12/25 PO 2128 Aspirin 81 MG DAILY 12/21 1321 AC 12/25 PO 1453 Atorvastatin Calcium 20 MG 1700 12/13 1700 AC 12/25 PO 1825 Bisacodyl 10 MG DAILY PRN 12/20 1030 AC 12/21 [place] 0852 Bisacodyl 5 MG DAILY 12/20 1016 AC 12/25 PO 1454 Clonazepam 0.25 MG BID 12/24 1000 AC 12/25 PO 12/31 0959 2128 Docusate Sodium 100 MG DAILY NEEDED PRN 12/12 171 AC PO Escitalopram Oxalate 10 MG DAILY 12/13 1000 AC 12/25 PO 1454 Fentanyl Citrate 100 MCG .STK-MED ONE 12/25 0941 DC IM 12/25 0942 Gabapentin 300 MG DAILY 12/13 1000 AC 12/25 PO 1454 Hydromorphone HCl 2 MG .STK-MED ONE 12/25 1155 DC IM 12/25 1156 Ipratropium [place]field 2.5 ML BID 12/22 2200 AC 12/25 INH 1855 Losartan Potassium 100 MG DAILY 12/13 1000 AC 12/24 PO 1006 Meropenem 1 GM Q8 12/21 2245 AC 12/26 IV 0536 Metoprolol Tartrate 25 MG BID 12/13 2200 AC 12/25 PO 2128 Midazolam HCl 2 MG .STK-MED ONE 12/25 0941 DC IM 12/25 0942 Mirtazapine 15 MG QPM 12/15 2200 AC 12/25 PO 2128 Morphine Sulfate 2 MG DAILY NEEDED PRN 12/15 0945 AC 12/25 IV 1822 Omeprazole 20 MG DAILY AC 12/14 0700 AC 12/26 PO 0536 Ondansetron HCl 4 MG Q8P PRN 12/12 171 AC IV Oxycodone/ 1 TAB Q4P PRN 12/12 1715 AC 12/25 Acetaminophen PO 0010 Oxycodone/ 2 TAB Q4P PRN 12/12 1715 AC 12/26 Acetaminophen PO 0738 Polyethylene Glycol 17 GM DAILY PRN 12/18 0945 AC 12/20 PO 1221 Senna 187 MG AT BEDTIME 12/18 2200 AC 12/25 PO 2128 Sodium Chloride 1,000 ML Q13H 12/25 1315 AC 12/26 IV 0207 Last 24 Hrs of Lab/Zachary Results Last 24 Hrs of Labs/Mics: Laboratory Tests 12/26/16 0600: Magnesium Cancelled 12/26/16 0545: Anion Gap 5, Estimated GFR > 60, BUN/Creatinine Ratio 41.7 H, Magnesium 2.1 Microbiology 12/25 1100 EXTREMITIE: Gross Specimen Examination - RES 12/25 1100 EXTREMITIE: Gram Stain - RES Lines/Diet/Fluids Lines: peripheral lines Assessment/Plan Assessment: 80-year-old lady who is an every day smoker with pmh of HTN, HLD, A.fib on Eliquis, severe PAD s/p femoral bypass in January of 2014, venous stasis ulcer, TIA , CVA, polio, was admitted for postoperative hypoxemia following an elective Rt. lower extremity venogram for Rt. leg PAD on 12/12/16 likely from pleural effusions and bibasilar atelectasis. Problem List: 1. Postoperative hypoxemia, secondary to pulmonary edema, bilateral effusions and atelectasis. 2. Status post right LE venogram for PAD, right lower extremity non-healing ulcer. 3. History of osteomyelitis, on meropenem. 4. Severe COPD. 5. Atrial fibrillation, on Eliquis. 6. Nonsustained ventricular tachycardia. 7. Hypertension Problem List: * Patient underwent debridement of the right castellano ulcer yesterday with placement of a wound vac. * Overnight, she had a 3 beat run of Vtach, Labs this morning, are within normal limits. Blood Pressure is also borderline this AM. BP meds are being held. * Cont. Meropenem per ID (Dr. Sparks) till 01/02, after which the patient is due to follow up with Dr. Sparks for further management. * NO TELFA to wound as this macerates pts skin--use adaptic gauze and Kerlix * Taper oxygen for saturation above 92% * Continue incentive spirometry, out of bed, physical therapy * TRC and nebs DVT prophylaxis Eliquis Code full Diet heart healthy Consultation pulmonary, vascular, PT, and cardiology Problem List: 1. Postoperative hypoxemia Pain Ratin Pain Location: Right castellano Pain Goal: Pain 4 or less Pain Plan: Per EMR Tomorrow's Labs & Rationales: BEP DVT/Prophylaxis: pharmacological Consulting Request: Consulting Specialty: Pulmonary Disease Consulting Physician: Dr. Elgin DIAZ MD,[facility] 12/26/16 1143: Attending MD Review Statement Attending Statement Attending MD Statement: examined this patient, discuss w/resident/PA/CORRUGATOR, agreed w/resident/PA/CORRUGATOR, discussed with family, reviewed EMR data (avail), discussed with nursing, discussed with case mgmt, reviewed images, amended to note Attending Assessment/Plan: Patient seen and examined, feeling tired. Blood pressure was low this morning. Vital Signs Date Time Temp Pulse Resp B/P B/P Pulse O2 O2 Flow FiO2 Mean Ox Delivery Rate 12/26 1106 Nasal 2.0L Cannula 12/26 1057 78 120/60 12/26 0954 64 96/56 12/26 0936 64 96/56 12/26 0936 64 96/56 12/26 0832 100/58 12/26 0826 98.0 83 18 88/58 95 Nasal 2.0L Cannula 12/26 0800 Nasal 2.0L Cannula 12/26 0212 110/68 12/26 0031 98.2 87 18 90/50 97 Nasal 2.0L Cannula 12/26 0000 Nasal 2.0L Cannula 12/25 2128 88 108/60 12/25 1855 81 Room Air 12/25 1611 97.7 85 19 133/63 93 Nasal 2.0L Cannula 12/25 1600 Nasal 2.0L Cannula 12/25 1455 77 130/66 on exam; aox3, nad. cv; s1,s2, rrr resp; clear abd; soft, nt, bs+ ext; no edema. Laboratory Tests 12/26 12/26 0600 0545 Chemistry Sodium (137 - 145 mmol/L) 139 Potassium (3.5 - 5.1 mmol/L) 5.1 Chloride (98 - 107 mmol/L) 99 Carbon Dioxide (22 - 30 mmol/L) 34 H Anion Gap (5 - 16) 5 BUN (7 - 17 mg/dL) 25 H Creatinine (0.5 - 1.0 mg/dL) 0.6 Estimated GFR (>60 ml/min) > 60 BUN/Creatinine Ratio (7 - 25 %) 41.7 H Magnesium (1.6 - 2.3 mg/dL) Cancelled 2.1 A/P; 81 y/o F with pmh sig for HTN, HLD, A.fib on Eliquis, severe PAD s/p femoral bypass in January of 2014, venous stasis ulcer, TIA, CVA, polio, was admitted for postoperative hypoxemia following an elective Rt. lower extremity venogram/ angiogram for Rt. lle PAD on 12/12/16 likely from pleural effusions ( ultrasound did not show enough fluid to be tapped) and bibasilar atelectasis. Patient was also kept on meropenem from her outside infectious disease doctor. She has been followed by Dr. Burt here at [facility] from [place]. at this point her blood pressure continues to run low. Her diuretics were held as well as we'll stop her losartan as discussed with cardiology. Should be kept on her beta elton. She now has a wound VAC. Continue all other current medications. DVT prophylaxis: ELiquis. Possible discharge tomorrow to rehabilitation if blood pressure stabilizes.
[2016-12-26] MEDS ORDERED: ASPIRIN EC81 M1 PO (07:49)
--- NOTE | 2016-12-26 11:22 | PN- Infect Dx ---
Subjective Subjective: Afebrile. She complains of pain in the right leg at the recent surgical site. Objective Last 24 Hrs of Vital Signs/I&O Vital Signs Date Time Temp Pulse Resp B/P B/P Pulse O2 O2 Flow FiO2 Mean Ox Delivery Rate 12/26 1106 Nasal 2.0L Cannula 12/26 1057 78 120/60 12/26 0954 64 96/56 12/26 0936 64 96/56 12/26 0936 64 96/56 12/26 0832 100/58 12/26 0826 98.0 83 18 88/58 95 Nasal 2.0L Cannula 12/26 0800 Nasal 2.0L Cannula 12/26 0212 110/68 12/26 0031 98.2 87 18 90/50 97 Nasal 2.0L Cannula 12/26 0000 Nasal 2.0L Cannula 12/25 2128 88 108/60 12/25 1855 81 Room Air 12/25 1611 97.7 85 19 133/63 93 Nasal 2.0L Cannula 12/25 1600 Nasal 2.0L Cannula 12/25 1455 77 130/66 Intake & Output 12/26 1600 12/26 0800 12/26 0000 Intake Total 720 840 Output Total 620 400 Balance 100 440 Intake, IV 600 600 Intake, Oral 120 240 Output, 20 Drainage Output, Urine 600 400 Physical Exam Other Physical Findings: She appears comfortable in no acute distress Lungs decreased breath sounds bilaterally Heart regular rhythm with no murmur Extremities right leg dressing intact; PICC in the right upper extremity with no inflammation at the site Results Last 24 Hours of Lab Results: Laboratory Tests 12/26 12/26 0600 0545 Chemistry Sodium (137 - 145 mmol/L) 139 Potassium (3.5 - 5.1 mmol/L) 5.1 Chloride (98 - 107 mmol/L) 99 Carbon Dioxide (22 - 30 mmol/L) 34 H Anion Gap (5 - 16) 5 BUN (7 - 17 mg/dL) 25 H Creatinine (0.5 - 1.0 mg/dL) 0.6 Estimated GFR (>60 ml/min) > 60 BUN/Creatinine Ratio (7 - 25 %) 41.7 H Magnesium (1.6 - 2.3 mg/dL) Cancelled 2.1 Last 24 Hours of Zachary Results: OR culture December 25 labeled right leg deep tissue positive for Pseudomonas, sensitivities pending Assessment/Plan Impression: Stable status post debridement of a necrotic wound of the right leg yesterday, with her OR culture growing Pseudomonas, which was also isolated from a superficial culture obtained as an outpatient, and for which she was started on Meropenem [address] Sparks, her infectious disease physician at [facility]. This was started for presumed osteomyelitis with no bone biopsy or bone debridement performed, with plans for a 4 week course (until January 02). Suggestion: 1. Further management of her right leg wound per Vascular surgery 2. Follow-up with Dr. Janie Sparks upon discharge 3. Continue Meropenem until seen in outpatient follow-up by Dr. Sparks
--- NOTE | 2016-12-26 11:30 | PN- Cardiology ---
Subjective Subjective: The patient underwent debridement yesterday and placement of a wound VAC. She complains of pain at her surgical site. No chest pain. No palpitations. No shortness of breath. No diaphoresis. Objective Vital Signs and I&Os Vital Signs Date Time Temp Pulse Resp B/P B/P Pulse O2 O2 Flow FiO2 Mean Ox Delivery Rate 12/26 0954 64 96/56 12/26 0936 64 96/56 12/26 0936 64 96/56 12/26 0832 100/58 12/26 0826 98.0 83 18 88/58 95 Nasal 2.0L Cannula 12/26 0800 Nasal 2.0L Cannula 12/26 0212 110/68 12/26 0031 98.2 87 18 90/50 97 Nasal 2.0L Cannula 12/26 0000 Nasal 2.0L Cannula 12/25 2128 88 108/60 12/25 1855 81 Room Air 12/25 1611 97.7 85 19 133/63 93 Nasal 2.0L Cannula 12/25 1600 Nasal 2.0L Cannula 12/25 1455 77 130/66 Intake & Output 12/26 1600 12/26 0800 12/26 0000 12/25 1600 12/25 0800 12/25 0000 Intake Total 720 840 400 500 Output Total 620 400 300 900 400 Balance 100 440 100 -900 100 Intake, IV 600 600 100 Intake, Oral 120 240 300 500 Number 0 Bowel Movements Output, 20 Drainage Output, Urine 600 400 300 900 400 Physical Exam: Gen: NAD HEENT: normal Lungs: Scattered rales bilaterally, normal resp. effort Heart: RRR, S1, S2, no murmurs Abdomen: Soft, nontender, no masses Extremities: No clubbing, cyanosis, or edema. Neuro: Alert and oriented x 3, cranial nerves intact Current Medications: Current Medications Sig/Chris Start time Last Medication Dose Route Stop Time Status Admin Acetaminophen 650 MG Q6PRN PRN 12/12 1715 AC 12/16 PO 2001 Albuterol Sulfate 3 ML BID 12/22 2200 AC 12/25 INH 1855 Apixaban 5 MG BID 12/20 1000 AC 12/26 PO 0935 Aspirin 81 MG DAILY 12/21 1321 AC 12/26 PO 0935 Atorvastatin Calcium 20 MG 1700 12/13 1700 AC 12/25 PO 1825 Bisacodyl 10 MG DAILY PRN 12/20 1030 AC 12/21 [place] 0852 Bisacodyl 5 MG DAILY 12/20 1016 AC 12/26 PO 0935 Clonazepam 0.25 MG BID 12/24 1000 AC 12/26 PO 12/31 0959 0935 Docusate Sodium 100 MG DAILY NEEDED PRN 12/12 1715 AC PO Escitalopram Oxalate 10 MG DAILY 12/13 1000 AC 12/26 PO 0935 Gabapentin 300 MG DAILY 12/13 1000 AC 12/26 PO 0935 Hydromorphone HCl 2 MG .STK-MED ONE 12/25 1155 DC IM 12/25 1156 Ipratropium Pyrites 2.5 ML BID 12/22 2199 AC 12/25 INH 1855 Losartan Potassium 50 MG DAILY 12/26 1000 AC PO Losartan Potassium 100 MG DAILY 12/13 1000 DC 12/24 PO 1006 Meropenem 1 GM Q8 12/21 2245 AC 12/26 IV 0536 Metoprolol Tartrate 25 MG BID 12/13 220 AC 12/25 PO 2128 Mirtazapine 15 MG QPM 12/15 220 AC 12/25 PO 2128 Morphine Sulfate 2 MG DAILY NEEDED PRN 12/15 0945 AC 12/25 IV 1822 Omeprazole 20 MG DAILY AC 12/14 0700 AC 12/26 PO 0536 Ondansetron HCl 4 MG Q8P PRN 12/12 171 AC IV Oxycodone/ 1 TAB Q4P PRN 12/12 171 AC 12/25 Acetaminophen PO 0010 Oxycodone/ 2 TAB Q4P PRN 12/12 1715 AC 12/26 Acetaminophen PO 0738 Polyethylene Glycol 17 GM DAILY PRN 12/18 0945 AC 12/20 PO 1221 Senna 187 MG AT BEDTIME 12/18 220 AC 12/25 PO 2128 Sodium Chloride 1,000 ML Q13H 12/25 1315 AC 12/26 IV 0207 Results Last 48 Hrs of Labs/Mics: Laboratory Tests 12/26/16 0600: Magnesium Cancelled 12/26/16 0545: Anion Gap 5, Estimated GFR > 60, BUN/Creatinine Ratio 41.7 H, Magnesium 2.1 12/25/16 0600: Anion Gap 5, Estimated GFR > 60, BUN/Creatinine Ratio 42.9 H, CBC w Diff NO MAN DIFF REQ, RBC 3.59 L, MCV 95.5, MCH 31.4 H, RDW 15.2 H, MPV 8.6, Gran % 75.2, Lymphocytes % 13.9 L, Monocytes % 7.3, Eosinophils % 2.9, Basophils % 0.7, Absolute Granulocytes 6.2, Absolute Lymphocytes 1.1 L, Absolute Monocytes 0.6, Absolute Eosinophils 0.2, Absolute Basophils 0.1, PUBS MCHC 32.8 L Assessment/Plan Assessment/Plan Assessment: 1. Atrial fibrillation 2. Acute diastolic heart failure status post vascular procedure 3. Borderline hypotension Plan: * Discontinue losartan given recent hypotension. * Would keep off diuretics for now, and monitor for evidence of recurrent congestive heart failure. * Continue other cardiac medications Continue telemetry? Yes
[2016-12-27 00:09] VITALS: BP 110/60
[2016-12-27 08:00] VITALS: BP 120/62
--- NOTE | 2016-12-27 08:25 | PN- Housestaff ---
LUIS MANUEL JUAREZ 12/27/16 0807: Subjective Follow-up For: 1. Postoperative hypoxemia, secondary to pulmonary edema, bilateral effusions and atelectasis. 2. Status post right LE venogram for PAD, right lower extremity non-healing ulcer. 3. History of osteomyelitis, on meropenem. 4. Severe COPD. 5. Atrial fibrillation, on Eliquis. 6. Nonsustained ventricular tachycardia. 7. Hypertension Tele-Events Since Last Visit: A. Fib , rate 75-91. Subjective: Complains of pain in right leg, 7-8, pain medication helping. Status post debridement. No overnight fevers or chills. No breathing difficulty, minimal cough without expectoration. Complains of constipation, no abdominal pain. Reports decreased appetite. Hasn't moved OOB post debridement, secondary to pain. Review of Systems Constitutional: Reports: see HPI. Objective Last 24 Hrs of Vital Signs/I&O Vital Signs Date Time Temp Pulse Resp B/P B/P Pulse O2 O2 Flow FiO2 Mean Ox Delivery Rate 12/27 0800 98.9 90 18 120/62 92 Nasal 2.0L Cannula 12/27 0009 98.2 82 16 110/60 94 Nasal 2.0L Cannula 12/27 0000 Nasal 2.0L Cannula 12/26 2134 84 90/50 12/26 1926 95 Nasal 2.0L Cannula 12/26 1600 91 Nasal 2.0L Cannula 12/26 1540 97.2 86 14 110/60 91 Nasal 2.0L Cannula 12/26 1338 93 Nasal 2.0L Cannula 12/26 1106 Nasal 2.0L Cannula 12/26 1057 78 120/60 12/26 0954 64 96/56 12/26 0936 64 96/56 12/26 0936 64 96/56 12/26 0832 100/58 12/26 0826 98.0 83 18 88/58 95 Nasal 2.0L Cannula Intake & Output 12/27 1600 12/27 0800 12/27 0000 Intake Total 720 420 Output Total 910 210 Balance -190 210 Intake, IV 600 300 Intake, Oral 120 120 Output, 10 10 Drainage Output, Urine 900 200 Physical Exam General Appearance: Alert, Oriented X3, Mild Distress Skin: No Rashes HEENT: Atraumatic, Mucous Membr. moist/pink Neck: Supple, No JVD Cardiovascular: Normal S1, Normal S2 (Irregular rate) Lungs: Clear to Auscultation, Normal Air Movement, Basilar crackles Abdomen: Normal Bowel Sounds, No Tenderness Neurological: Normal Speech Extremities: No Clubbing, No Cyanosis, No Edema, Normal Pulses, Right leg in bandage, wound vac in place. Current Medications: Current Medications Sig/Chris Start time Last Medication Dose Route Stop Time Status Admin Acetaminophen 650 MG Q6PRN PRN 12/12 171 AC 12/16 PO 2001 Albuterol Sulfate 3 ML BID 12/22 2200 AC 12/26 INH 1920 Apixaban 5 MG BID 12/20 1000 AC 12/26 PO 2134 Aspirin 81 MG DAILY 12/21 1321 AC 12/26 PO 0935 Atorvastatin Calcium 20 MG 1700 12/13 1700 AC 12/26 PO 171 Bisacodyl 10 MG DAILY PRN 12/20 1030 AC 12/21 [place] 0852 Bisacodyl 5 MG DAILY 12/20 1016 AC 12/26 PO 0935 Clonazepam 0.25 MG BID 12/24 1000 AC 12/26 PO 12/31 0959 2144 Docusate Sodium 100 MG DAILY NEEDED PRN 12/12 171 AC PO Escitalopram Oxalate 10 MG DAILY 12/13 1000 AC 12/26 PO 0935 Gabapentin 300 MG DAILY 12/13 1000 AC 12/26 PO 0935 Ipratropium Bud 2.5 ML BID 12/22 2200 AC 12/26 INH 1921 Losartan Potassium 50 MG DAILY 12/26 1000 DC PO Losartan Potassium 100 MG DAILY 12/13 1000 DC 12/24 PO 1006 Meropenem 1 GM Q8 12/21 2245 AC 12/27 IV 0524 Metoprolol Tartrate 25 MG BID 12/13 220 AC 12/25 PO 2127 Mirtazapine 15 MG QPM 12/15 220 AC 12/25 PO 2128 Morphine Sulfate 2 MG DAILY NEEDED PRN 12/15 0945 AC 12/25 IV 1822 Nystatin 1 INEZ TIDPRN PRN 12/27 0500 AC TOP Omeprazole 20 MG DAILY AC 12/14 0700 AC 12/27 PO 0525 Ondansetron HCl 4 MG Q8P PRN 12/12 171 AC IV Oxycodone/ 1 TAB Q4P PRN 12/12 171 AC 12/25 Acetaminophen PO 0010 Oxycodone/ 2 TAB Q4P PRN 12/12 1715 AC 12/27 Acetaminophen PO 0525 Patient Medication 1 ED .STK-MED ONE 12/26 1411 DE Teaching ED 12/26 1412 Polyethylene Glycol 17 GM DAILY PRN 12/18 0945 AC 12/20 PO 1221 Senna 187 MG AT BEDTIME 12/18 2200 AC 12/26 PO 2134 Sodium Chloride 1,000 ML Q13H 12/25 1315 AC 12/27 IV 0348 Last 24 Hrs of Lab/Zachary Results Last 24 Hrs of Labs/Mics: Laboratory Tests 12/27/16 0535: Anion Gap 4 L, Estimated GFR > 60, BUN/Creatinine Ratio 31.4 H Lines/Diet/Fluids Fluids/Infusions: NS 75 cc/hr Assessment/Plan Assessment: 80-year-old lady who is an every day smoker with pmh of HTN, HLD, A.fib on Eliquis, severe PAD s/p femoral bypass in January of 2014, venous stasis ulcer, TIA , CVA, was admitted for postoperative hypoxemia following an elective Rt. lower extremity venogram for Rt. leg PAD on 12/12/16 likely from pleural effusions and bibasilar atelectasis. Problem List: 1. Postoperative hypoxemia, secondary to pulmonary edema, bilateral effusions and atelectasis. 2. Status post right LE venogram for PAD, right lower extremity non-healing ulcer. 3. History of osteomyelitis, on meropenem. 4. Severe COPD. 5. Atrial fibrillation, on Eliquis. 6. Nonsustained ventricular tachycardia. 7. Hypertension Problem List: * Patient underwent debridement of the right castellano ulcer yesterday with placement of a wound vac. Complains of pain in right leg 03/15. Start Tylenol ATC for basal pain control, continue Percocet at current dose for breakthrough pain. Discontinue IV Morphine. * No overnight events, except for baseline rate controlled A. Fib. Borderline high potassium likely due to constipation. Discontinuation of Losartan should help with lowering of potassium. Blood Pressure improved. Losartan and Lasix on hold. * Meropenem resistant; discontinue Meropenem per Dr. Burt and Dr. Sparks's discussion. Patient is due to follow up with Dr. Sparks for further management. * NO TELFA to wound as this macerates pts skin--use adaptic gauze and Kerlix * Taper oxygen for saturation above 92%, good oxygen saturations overnight. taper O2. * Continue incentive spirometry. out of bed and physical therapy, after optimal pain control. * TRC and nebs Constipation: Trial of ducolax and senna s. Suppository if doesn't have a bowel movement. DVT prophylaxis Eliquis Code full Diet heart healthy Consultation pulmonary, vascular, PT, and cardiology Problem List: 1. PVD (peripheral vascular disease) Pain Ratin Pain Location: Right leg Pain Goal: Pain 7 or less Pain Plan: Tylenol ATC Percocet for breakthrough pain Tomorrow's Labs & Rationales: BEP for hyperkalemia Consulting Request: Consulting Specialty: Pulmonary Disease Consulting Physician: Dr. Elgin DIAZ MD,[facility] 12/27/16 1350: Attending MD Review Statement Attending Statement Attending MD Statement: examined this patient, discuss w/resident/PA/MANAGER STATISTICAL PROGRAMMING, agreed w/resident/PA/MANAGER STATISTICAL PROGRAMMING, reviewed EMR data (avail), discussed with nursing, discussed with case mgmt, reviewed images, amended to note Attending Assessment/Plan: Patient seen and examined, denies any complaints. Still on pain medications. Her blood pressure has improved. Wound culture growing Pseudomonas which is not sensitive to meropenem. Discussed with infectious disease, will stop antibiotics and has her follow-up at her infectious disease doctor Dr. Janie Sparks at [facility]. Further course of antibiotic and examined by her infectious disease doctor. Patient still has a wound VAC and the need to follow -up with Dr. Ortiz as an outpatient. She will also follow-up with cardiology, pulmonology, wound care as an outpatient. She has a bed availability at rehab and is medically stable for discharge to rehabilitation today
[2016-12-27 10:00] VITALS: BP 122/64
--- NOTE | 2016-12-27 14:08 | PN- Infect Dx ---
Subjective Subjective: Afebrile. She does complain of pain in the right leg. Objective Last 24 Hrs of Vital Signs/I&O Vital Signs Date Time Temp Pulse Resp B/P B/P Pulse O2 O2 Flow FiO2 Mean Ox Delivery Rate 12/27 1335 94 Nasal 2.0L Cannula 12/27 1101 88 122/64 12/27 1000 Nasal 2.0L Cannula 12/27 1000 88 122/64 12/27 0800 98.9 90 18 120/62 92 Nasal 2.0L Cannula 12/27 0009 98.2 82 16 110/60 94 Nasal 2.0L Cannula 12/27 0000 Nasal 2.0L Cannula 12/26 2134 84 90/50 12/26 1926 95 Nasal 2.0L Cannula 12/26 1600 91 Nasal 2.0L Cannula 12/26 1540 97.2 86 14 110/60 91 Nasal 2.0L Cannula Intake & Output 12/27 1600 12/27 0800 12/27 0000 Intake Total 720 420 Output Total 200 910 210 Balance -200 -190 210 Intake, IV 600 300 Intake, Oral 120 120 Output, 10 10 Drainage Output, Urine 200 900 200 Physical Exam Other Physical Findings: She appears comfortable in no acute distress Lungs decreased breath sounds at the right base Extremities right leg dressing intact; PICC in the right upper extremity with no inflammation at the site Results Last 24 Hours of Lab Results: Laboratory Tests 12/27 0535 Chemistry Sodium (137 - 145 mmol/L) 138 Potassium (3.5 - 5.1 mmol/L) 5.2 H Chloride (98 - 107 mmol/L) 100 Carbon Dioxide (22 - 30 mmol/L) 34 H Anion Gap (5 - 16) 4 L BUN (7 - 17 mg/dL) 22 H Creatinine (0.5 - 1.0 mg/dL) 0.7 Estimated GFR (>60 ml/min) > 60 BUN/Creatinine Ratio (7 - 25 %) 31.4 H Last 24 Hours of [facility] Results: OR culture December 25 labeled right leg deep tissue positive for Pseudomonas resistant to Meropenem and Ciprofloxacin Assessment/Plan Impression: Stable status post debridement of a necrotic wound of the right leg 2 days ago, with her OR culture growing Pseudomonas, which is resistant to Meropenem. She has now completed 22 days of Meropenem for presumed osteomyelitis of the right leg, though no bone biopsy or bone debridement was performed. At this point I do not feel that continuation of Meropenem is indicated as the Pseudomonas isolated from her recent OR culture is now resistant to Meropenem. This has been discussed with Dr. Janie Sparks, the patient's infectious disease physician at [facility], who concurs and will follow up patient as an outpatient. Suggestion: 1. Further management of her right leg wound per Vascular surgery 2. Follow-up with Dr. Janie Sparks upon discharge 3. Discontinue Meropenem and follow off antibiotics pending ID evaluation by Dr. Sparks
[2016-12-27 16:08] VITALS: BP 122/64
[2016-12-27 17:19] VITALS: BP 112/62
== END 2016-12-27 17:42 | DRG 166 ==
LOC: DELPENDDIS → STS 01:20 → PACUH 11:20 → ENRESERV 16:08 → 2NA 16:38 → CRI 12-14 14:12 → 2NA 12-14 14:12 → CRI 12-16 15:44 → 1NO 12-21 21:09 → ENPENDDIS 12-26 15:51 → 1NO 12-27 17:42
PROVIDERS: Internal Medicine; Ophthalmology; Physician Assistant; Physician Assistant Surgical; Student in an Organized Health Care Education/Training Program; ADMIT Surgery Vascular Surgery
DX: J95.89 Other postprocedural complications and disorders of respiratory system, not elsewhere classified (principal); J96.91 Respiratory failure, unspecified with hypoxia; I50.33 Acute on chronic diastolic (congestive) heart failure; J90 Pleural effusion, not elsewhere classified; I48.2 Chronic atrial fibrillation; M86.9 Osteomyelitis, unspecified; I27.2 Other secondary pulmonary hypertension; J44.9 Chronic obstructive pulmonary disease, unspecified; J98.11 Atelectasis; I11.0 Hypertensive heart disease with heart failure; Z79.01 Long term (current) use of anticoagulants; I70.238 Atherosclerosis of native arteries of right leg with ulceration of other part of lower leg; F17.210 Nicotine dependence, cigarettes, uncomplicated; Y83.9 Surgical procedure, unspecified as the cause of abnormal reaction of the patient, or of later complication, without mention of misadventure at the time of the procedure; F32.9 Major depressive disorder, single episode, unspecified; E78.5 Hyperlipidemia, unspecified
CPT/HCPCS: 1NP; 2NASP; 87070; 87075; CCU; 36415; 73560-RT; 82436; 87086; 93005; 93010; 93306; 97110-GO; 97116-GP; 97161-GP; 97164-GP; 97530-GO; 97530-GP; C1725; C1760; C2623; G0378; G8978-GP; G8979-GP; G8980-GP; J0131; J1644; J1940; J2185; J2270; J2405; J2997; J3490; J7040; Q9967